=== PATIENT | male | born 1965 | race Caucasian/White ===

== ENCOUNTER 2017-03-20 17:34 | Emergency (ER) | payer BC ==
--- NOTE | 2017-03-20 17:53 | EDM.PDOC ---
ED HPI GENERAL MEDICAL PROBLEM - General Chief Complaint: ENT Problem Stated Complaint: TOOTH PAIN Time Seen by Provider: 03/20/17 17:52 Source of Information: Reports: Patient - History of Present Illness INITIAL COMMENTS - FREE TEXT/NARRATIVE: HISTORY AND PHYSICAL: History of present illness: [] Patient has history of poor dentition He presents with dental pain and tooth fracture appears to be tooth #6 is fractured or pervert exposure No fever nausea vomiting chills sweats Review of systems: As per history of present illness and below otherwise all systems reviewed and negative. Past medical history: As per history of present illness and as reviewed below otherwise noncontributory. Surgical history: As per history of present illness and as reviewed below otherwise noncontributory. Social history: No reported history of drug or alcohol abuse. Family history: As per history of present illness and as reviewed below otherwise noncontributory. Physical exam: HEENT: Atraumatic, normocephalic, pupils reactive, negative for conjunctival pallor or scleral icterus, mucous membranes moist, throat clear, neck supple, nontender, trachea midline. Her dentition noted Lungs: Clear to auscultation, breath sounds equal bilaterally, chest nontender. Heart: S1S2, regular, negative for clicks, rubs, or JVD. Abdomen: Soft, nondistended, nontender. Negative for masses or hepatosplenomegaly. Negative for costovertebral tenderness. Pelvis: Stable nontender. Genitourinary: Deferred. Rectal: Deferred. Extremities: Atraumatic, negative for cords or calf pain. Neurovascular unremarkable. Neuro: Awake, alert, oriented. Cranial nerves II through XII unremarkable. Cerebellum unremarkable. Motor and sensory unremarkable throughout. Exam nonfocal. Diagnostics: [] Therapeutics: [] Clindamycin [place] Followup with dentist tomorrow as scheduled Impression: [] Dental pain/tooth fracture #6 Definitive disposition and diagnosis as appropriate pending reevaluation and review of above. - Related Data Allergies Allergy/AdvReac Type Severity Reaction Status Date / Time Penicillins Allergy Cannot Verified 03/20/17 17:53 Remember Home Meds: Home Meds . [No Known Home Meds] 11/12/14 [History] Social & Family History - Tobacco Use Smoking Status *Q: Never Smoker Second Hand Smoke Exposure: No - Alcohol Use Days Per Week of Alcohol Use: 1 Number of Drinks Per Day: 2 Total Drinks Per Week: 2 - Recreational Drug Use Recreational Drug Use: No ED ROS GENERAL - Review of Systems Review Of Systems: ROS reveals no pertinent complaints other than HPI. ED EXAM, GENERAL - Physical Exam Exam: See Below Departure - Departure Time of Disposition: 17:53 Disposition: Home, Self-Care 01 Condition: good Clinical Impression: Pain, dental - Discharge Information Forms: ED Department Discharge Additional Instructions: Medication as prescribed Return if symptoms persist or worsen Followup with dentist as scheduled tomorrow morning The following information is given to patients seen in the emergency department who are being discharged to home. This information is to outline your options for follow-up care. We provide all patients seen in our emergency department with a follow-up referral. The need for follow-up, as well as the timing and circumstances, are variable depending upon the specifics of your emergency department visit. If you don't have a primary care physician on staff, we will provide you with a referral. We always advise you to contact your personal physician following an emergency department visit to inform them of the circumstance of the visit and for follow-up with them and/or the need for any referrals to a consulting specialist. The emergency department will also refer you to a specialist when appropriate. This referral assures that you have the opportunity for follow-up care with a specialist. All of these measure are taken in an effort to provide you with optimal care, which includes your follow-up. Under all circumstances we always encourage you to contact your private physician who remains a resource for coordinating your care. When calling for follow-up care, please make the office aware that this follow-up is from your recent emergency room visit. If for any reason you are refused follow-up, please contact the [facility] emergency department at and asked to speak to the emergency department charge nurse.
[2017-03-20 19:21] VITALS: BP 121/60
== END 2017-03-20 18:10 | disposition home or self-care (01) ==
LOC: MW.ED 17:34
DX: K08.89 Other specified disorders of teeth and supporting structures (principal); Z88.0 Allergy status to penicillin
CPT/HCPCS: 99282; 99283

== ENCOUNTER 2019-12-27 21:22 | Emergency (ER) | payer BC ==
--- NOTE | 2019-12-27 21:41 | EDM.PDOC ---
<Scott Day - Last Filed: 12/27/19 22:02> ED HPI GENERAL MEDICAL PROBLEM - General Chief Complaint: Respiratory Problem Stated Complaint: CONGESTION Time Seen by Provider: 12/27/19 21:40 Source of Information: Reports: Patient History Limitations: Reports: No Limitations - History of Present Illness INITIAL COMMENTS - FREE TEXT/NARRATIVE: HISTORY AND PHYSICAL: History of present illness: Patient is a 54-year-old male presents to the ED with complaint of cough. Patient states he has had a cough and chest congestion since yesterday. He states he has been taking mucinex without relief of symptoms. Patient has a history of CHF on lasix and states he has had more shortness of breath in the past couple of weeks and is worse when lying flat. He has not noticed significant increased swelling in his legs. He denies fevers or chills, nausea, vomiting, abdominal pain, diarrhea, body aches. He does report pain in his chest with coughing. Review of systems: As per history of present illness and below otherwise all systems reviewed and negative. Past medical history: As per history of present illness and as reviewed below otherwise noncontributory. Surgical history: As per history of present illness and as reviewed below otherwise noncontributory. Social history: No reported history of drug or alcohol abuse. Family history: As per history of present illness and as reviewed below otherwise noncontributory. Physical exam: General: Patient sitting comfortably in no acute distress and nontoxic appearing HEENT: Atraumatic, normocephalic, pupils reactive, negative for conjunctival pallor or scleral icterus, mucous membranes moist, throat clear, neck supple, nontender, trachea midline. No meningeal signs. Lungs: crackles noted at lung bases , chest nontender. Heart: S1S2, regular, negative for clicks, rubs, or overt murmur. Abdomen: Soft, nondistended, nontender. Negative for masses or hepatosplenomegaly. Negative for costovertebral tenderness. No rigidity, rebound , guarding. Pelvis: Stable nontender. Genitourinary: Deferred. Rectal: Deferred. Extremities: 2+ pitting edema right lower extremity, 1+ pitting edema left lower extremity. Atraumatic, negative for cords or calf pain. Neurovascular unremarkable. Neuro: Awake, alert, oriented. Cranial nerves II through XII unremarkable. Cerebellum unremarkable. Motor and sensory unremarkable throughout. Exam nonfocal. Notes: Diagnostics: Influenza, CXR Therapeutics: Prescriptions: Impression: [] Plan: Signed out to Dr. Corrigan at 2200 Definitive disposition and diagnosis as appropriate pending reevaluation and review of above. chest discomfort Pain Score (Numeric/FACES): 6 - Related Data Allergies Allergy/AdvReac Type Severity Reaction Status Date / Time Penicillins Allergy Cannot Verified 03/20/17 17:53 Remember Home Meds: Home Meds Aspirin 81 mg PO DAILY 03/20/17 [History] Furosemide 40 mg PO DAILY 03/20/17 [History] Lisinopril 10 mg PO DAILY 03/20/17 [History] Spironolactone [Aldactone] 25 mg PO DAILY 03/20/17 [History] atorvaSTATin [Lipitor] 20 mg PO BEDTIME 03/20/17 [History] Past Medical History HEENT History: Reports: Impaired Vision Other HEENT History: wears glasses Cardiovascular History: Reports: CAD, High Cholesterol, Hypertension, Other ( See Below) Other Cardiovascular History: rheumatoid fever Respiratory History: Reports: Other (See Below) Other Respiratory History: strep throat - Past Surgical History GI Surgical History: Reports: Hernia, Inguinal Social & Family History - Family History Family Medical History: Noncontributory - Caffeine Use Caffeine Use: Reports: Tea Caffeine Use Comment: 1 cup daily ED ROS GENERAL - Review of Systems Review Of Systems: Comprehensive ROS is negative, except as noted in HPI. ED EXAM, GENERAL - Physical Exam Exam: See Below (see dictation) Course - Vital Signs Last Recorded V/S: Last Vital Signs Temp 36.6 C 12/27/19 21:35 Pulse 92 12/27/19 21:35 Resp 18 12/27/19 21:35 BP 115/59 L 12/27/19 21:35 Pulse Ox 93 L 12/27/19 21:35 - Orders/Labs/Meds Orders: Active Orders 24 hr Category Date Time Status EKG 12 Lead [EKG Documentation Completion] [RC] STAT Care 12/27/19 21:49 Active Chest 2V [CR] Stat Exams 12/27/19 21:44 Taken Departure - Departure Disposition: Home, Self-Care 01 Clinical Impression: Viral syndrome - Discharge Information Instructions: Viral Illness, Adult Referrals: Yimi Rodriguez MD [Primary Care Provider] - Forms: ED Department Discharge Additional Instructions: Increasing fluid intake is important and viral syndromes but do this at your doctor's input because of your congestive heart failure history. Sepsis Event Note - Evaluation Sepsis Screening Result: No Definite Risk - Focused Exam Vital Signs: Vital Signs Temp Pulse Resp BP Pulse Ox 12/27/19 21:35 36.6 C 92 18 115/59 L 93 L Date Exam was Performed: 12/27/19 Time Exam was Performed: 22:02 <Hardy Corrigan - Last Filed: 12/27/19 22:19> Course - Vital Signs Text/Narrative:: The patient's care was handed off to me. History and exam are consistent with a viral syndrome. Patient does have obesity and a history of congestive heart failure but he has not tachypneic, his lungs are clear, he is not wheezing, I do not appreciate any rales or rhonchi. The patient has no pitting edema in the lower extremities , there is chronically obese but I do not see any acute changes. The patient also himself does not state that his legs of and swelling. The ECG was reviewed and interpreted by me -there are P waves before every regular QRS with a ventricular rate of 92 bpm. The CO, QRS and QT intervals do not show any acute changes, ST segments are baseline and there are nonspecific T wave changes. Final interpretation is a normal sinus rhythm with nonspecific T wave changes. Chest x-ray is reviewed and interpreted by me -are no pulmonary infiltrates, pleural effusions, pneumothorax, thoracic masses or any acute pathology. Thus, given the entire clinical scenario I feel that the patient is stable for discharge and close outpatient follow-up. I talked with him in detail that normally you have to drink extra fluids when you have viral syndromes but he had does have to be careful because of his CHF. He will probably need to increase his fluid intake a little bit but he should do this in conjunction with his doctor who will then determine if he needs to increase his Lasix or not. Table for discharge. Departure - Departure Time of Disposition: 22:18 Condition: Good Sepsis Event Note - Focused Exam Date Exam was Performed: 12/27/19 Time Exam was Performed: 22:15
--- NOTE | 2019-12-27 22:29 | CR ---
INDICATION: Cough, chest pain TECHNIQUE: Chest radiograph 2 views COMPARISON: 12/28/17 FINDINGS: Moderate degradation of image quality noted due to body habitus. Mediastinum: The mediastinum is normal in appearance. The heart silhouette is normal in size and morphology. A new transdermal pacer is noted over the sternum with pulse generator over the left chest wall. Lung: Both lungs are unremarkable in appearance. No sign of pleural effusion seen. No pneumothorax is identified. Bone and Soft tissue: Unremarkable for age. IMPRESSION: 1. No acute cardiopulmonary disease is seen. Dictated by: Venkatesh Wray MD @ 12/27/2019 22:27:30 (Electronically Signed)
[2019-12-27 22:48] VITALS: BP 106/68; PULSE 87
== END 2019-12-27 22:30 | disposition home or self-care (01) ==
LOC: MW.ED 21:22
DX: B34.9 Viral infection, unspecified (principal); I25.10 Atherosclerotic heart disease of native coronary artery without angina pectoris; E78.00 Pure hypercholesterolemia, unspecified; I10 Essential (primary) hypertension; Z79.899 Other long term (current) drug therapy; Z79.82 Long term (current) use of aspirin; Z88.0 Allergy status to penicillin
CPT/HCPCS: 71046; 71046-26; 87804; 93005; 99282; 99284-25

== ENCOUNTER 2019-12-31 15:02 | Emergency (ER) | payer BC ==
--- NOTE | 2019-12-31 15:40 | EDM.PDOC ---
ED HPI GENERAL MEDICAL PROBLEM - General Chief Complaint: General Stated Complaint: FEELING SICK Time Seen by Provider: 12/31/19 15:21 Source of Information: Reports: Patient History Limitations: Reports: No Limitations - History of Present Illness INITIAL COMMENTS - FREE TEXT/NARRATIVE: This is a 54-year-old gentleman who presents the emergency room after staying for physicians in 3 days with flulike symptoms. States he is on azithromycin at this time and still does not feel good. Patient states he has shortness of breath. Onset: Today Duration: Day(s):, Resolved Prior to Arrival Location: Reports: Chest Severity: Mild Associated Symptoms: Reports: No Other Symptoms, Chest Pain, Cough Left Chest Pain Score (Numeric/FACES): 6 - Related Data Allergies Allergy/AdvReac Type Severity Reaction Status Date / Time Penicillins Allergy Cannot Verified 12/31/19 15:16 Remember Home Meds: Home Meds Aspirin 81 mg PO DAILY 03/20/17 [History] Furosemide 40 mg PO DAILY 03/20/17 [History] Lisinopril 10 mg PO DAILY 03/20/17 [History] Spironolactone [Aldactone] 25 mg PO DAILY 03/20/17 [History] atorvaSTATin [Lipitor] 20 mg PO BEDTIME 03/20/17 [History] Past Medical History HEENT History: Reports: Impaired Vision Other HEENT History: wears glasses Cardiovascular History: Reports: CAD, High Cholesterol, Hypertension, Other ( See Below) Other Cardiovascular History: rheumatoid fever Respiratory History: Reports: Other (See Below) Other Respiratory History: strep throat Gastrointestinal History: Reports: None Genitourinary History: Reports: None Musculoskeletal History: Reports: None Neurological History: Reports: None Psychiatric History: Reports: None Endocrine/Metabolic History: Reports: None 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 Pump 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 Embosser 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: N/A Hematologic History: Reports: None Immunologic History: Reports: None Oncologic (Cancer) History: Reports: None Dermatologic History: Reports: None - Infectious Disease History Infectious Disease History: Reports: Mumps - Past Surgical History Head Surgeries/Procedures: Reports: None GI Surgical History: Reports: Hernia, Inguinal Social & Family History - Family History Family Medical History: Noncontributory - Tobacco Use Smoking Status *Q: Never Smoker Second Hand Smoke Exposure: No - Caffeine Use Caffeine Use: Reports: None Caffeine Use Comment: 1 cup daily - Recreational Drug Use Recreational Drug Use: No ED ROS GENERAL - Review of Systems Review Of Systems: See Below Constitutional: Reports: No Symptoms, Fever, Chills HEENT: Reports: No Symptoms, Contact Lenses, Dental Pain Respiratory: Reports: No Symptoms, Shortness of Breath, Wheezing Cardiovascular: Reports: No Symptoms Endocrine: Reports: No Symptoms GI/Abdominal: Reports: No Symptoms : Reports: No Symptoms Musculoskeletal: Reports: No Symptoms Skin: Reports: No Symptoms Neurological: Reports: No Symptoms Psychiatric: Reports: No Symptoms ED EXAM, GENERAL - Physical Exam Exam: See Below Free Text/Narrative:: The patient chest x-ray is normal all labs are normal patient will be discharged home with diagnosis of viral disease. Exam Limited By: No Limitations General Appearance: Alert, WD/WN, No Apparent Distress Eye Exam: Bilateral Eye: Normal Fundi, Normal Inspection Ears: Normal External Exam, Normal Canal, Hearing Grossly Normal, Normal TMs, Hearing Loss Ear Exam: Bilateral Ear: Auricle Normal, Canal Normal, TM normal Nose: Normal Inspection, Normal Mucosa Throat/Mouth: Normal Inspection, Normal Lips, Normal Teeth, Normal Oropharynx, Normal Voice Head: Atraumatic, Normocephalic Neck: Normal Inspection, Supple, Non-Tender Respiratory/Chest: No Respiratory Distress, Lungs Clear, No Accessory Muscle Use , Chest Non-Tender Cardiovascular: Normal Peripheral Pulses, Regular Rate, Rhythm, No JVD, No Murmur GI/Abdominal: Normal Bowel Sounds, Soft, Non-Tender, No Distention, No Abnormal Bruit (Male) Exam: Deferred Rectal (Males) Exam: Deferred Back Exam: Normal Inspection, Full Range of Motion Extremities: Normal Inspection, Normal Range of Motion, Normal Capillary Refill , Slow Capillary Refill Neurological: Alert, Oriented, CN II-XII Intact, Normal Cognition, No Motor/ Sensory Deficits Psychiatric: Normal Affect, Normal Mood Skin Exam: Warm Course - Vital Signs Last Recorded V/S: Last Vital Signs Temp 97.4 F 12/31/19 15:12 Pulse 84 12/31/19 15:12 Resp 20 12/31/19 15:12 BP 112/61 12/31/19 15:12 Pulse Ox 93 L 12/31/19 15:12 - Orders/Labs/Meds Labs: Laboratory Tests 12/31/19 12/31/19 Range/Units 15:59 15:59 WBC 6.50 (4.0-11.0) K/uL RBC 4.62 (4.50-5.90) M/uL Hgb 14.3 (13.0-17.0) g/dL Hct 43.7 (38.0-50.0) % MCV 94.6 (80.0-98.0) fL MCH 31.0 (27.0-32.0) pg MCHC 32.7 (31.0-37.0) g/dL RDW Std Deviation 45.3 (28.0-62.0) fl RDW Coeff of Lynne 13 (11.0-15.0) % Plt Count 190 (150-400) K/uL MPV 9.50 (7.40-12.00) fL Nucleated RBC % 0.0 /100WBC Nucleated RBCs # 0 K/uL Sodium 136 (136-148) mmol/L Potassium 3.9 (3.5-5.1) mmol/L Chloride 98 (98-107) mmol/L Carbon Dioxide 27.6 (21.0-32.0) mmol/L BUN 13 (7.0-18.0) mg/dL Creatinine 0.9 (0.8-1.3) mg/dL Est Cr Clr Drug Dosing 82.70 mL/min Estimated GFR (MDRD) > 60.0 ml/min Glucose 99 (74-106) mg/dL Calcium 9.1 (8.5-10.1) mg/dL Total Bilirubin 1.1 H (0.2-1.0) mg/dL AST 45 H (15-37) IU/L ALT 66 H (14-63) IU/L Alkaline Phosphatase 65 (46-116) U/L Total Protein 7.7 (6.4-8.2) g/dL Albumin 4.0 (3.4-5.0) g/dL Globulin 3.7 (2.6-4.0) g/dL Albumin/Globulin Ratio 1.1 (0.9-1.6) Departure - Departure Time of Disposition: 17:19 Disposition: Home, Self-Care 01 Condition: Good Clinical Impression: Viral syndrome - Discharge Information Instructions: Viral Respiratory Infection, [id number], Hand Washing Referrals: Yimi Rodriguez MD [Primary Care Provider] - Forms: ED Department Discharge Sepsis Event Note - Evaluation Sepsis Screening Result: No Definite Risk - Focused Exam Vital Signs: Vital Signs Temp Pulse Resp BP Pulse Ox 12/31/19 15:12 97.4 F 84 20 112/61 93 L Date Exam was Performed: 12/31/19 Time Exam was Performed: 17:16
[2019-12-31 16:25] LABS: BLOOD UREA NITROGEN,BUN 13 mg/dL (7.0-18.0); CARBON DIOXIDE,CO2 27.6 mmol/L (21.0-32.0); CHLORIDE,CL 98 mmol/L (98-107); GLUCOSE RANDOM 99 mg/dL (74-106); POTASSIUM,K 3.9 mmol/L (3.5-5.1); SODIUM,NA 136 mmol/L (136-148)
--- NOTE | 2019-12-31 16:52 | CR ---
Chest: PA view of the chest was obtained. Comparison: Prior chest x-ray of 12/27/19. Parenchymal density is noted above the left hemidiaphragm having the appearance of a thick area of atelectasis. Lung markings are mildly increased which appear stable. Heart size at the upper limits of normal. Electrode wires are seen overlying the mediastinum which is stable. Bony structures are grossly intact. Impression: 1. Thick area of atelectasis within the left lung base. 2. Other findings which are stable. Nothing acute is otherwise seen. Diagnostic code #2 This report was dictated in MDT
[2019-12-31 17:30] VITALS: BP 98/73; PULSE 85
== END 2019-12-31 17:28 | disposition home or self-care (01) ==
LOC: MW.ED 15:02
DX: B34.9 Viral infection, unspecified (principal); I25.10 Atherosclerotic heart disease of native coronary artery without angina pectoris; E78.00 Pure hypercholesterolemia, unspecified; I10 Essential (primary) hypertension; Z88.0 Allergy status to penicillin; Z79.82 Long term (current) use of aspirin; Z79.899 Other long term (current) drug therapy
CPT/HCPCS: 36415; 71045; 71045-26; 80053; 85027; 99282; 99285-25

== ENCOUNTER 2020-01-02 20:16 | Inpatient (IN) | payer BC ==
[2020-01-02] MEDS ORDERED: Albuterol/Ipratropium 3.0-0.5 MG/3 ML Neb Soln NEB ONE (20:20)
[2020-01-02] MEDS ORDERED: Albuterol/Ipratropium 3.0-0.5 MG/3 ML Neb Soln ONE (20:21)
[2020-01-02] MEDS ORDERED: Sodium Chloride 0.9% 2.5 ML Syringe FLUSH PRN (20:46)
[2020-01-02] MEDS ORDERED: Sodium Chloride 0.9% 10 ML Syringe FLUSH PRN (20:46)
[2020-01-02 21:35] LABS: BLOOD UREA NITROGEN,BUN 15 mg/dL (7.0-18.0); CARBON DIOXIDE,CO2 31.5 mmol/L (21.0-32.0); CHLORIDE,CL 99 mmol/L (98-107); GLUCOSE RANDOM 111 mg/dL (74-106); SODIUM,NA 139 mmol/L (136-148)
[2020-01-02] MEDS ORDERED: cefTRIAXone 2 GM in Premix Bag 1 BAG IV ONE (22:28)
--- NOTE | 2020-01-02 22:58 | EDM.PDOC ---
ED HPI GENERAL MEDICAL PROBLEM - General Chief Complaint: Respiratory Problem Stated Complaint: breathing problem Time Seen by Provider: 01/02/20 20:36 Source of Information: Reports: Patient History Limitations: Reports: No Limitations - History of Present Illness INITIAL COMMENTS - FREE TEXT/NARRATIVE: 54-year-old male presents with shortness of breath for about 1 week. Patient reports increasing shortness for breath for about 1 week. He has a cough associated with this. He endorses some subjective fevers at home. He has been seen here 3 times now in the last week and a half for similar symptoms. He was like his symptoms are getting worse. Patient reports a history of heart failure with last echo in 2018. He reports that his heart function is getting better. He does endorse taking diuretics. Patient denies any sick contacts but does endorse increasing wheezing and coughing and shortness of breath. He feels like is because of the amiodarone that he is taking for his heart. 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 He denies any chest pain arm pain or jaw pain. Denies history of coronary artery disease. No recent falls. No changes in bowel or bladder function. No new swollen joints. No weakness or numbness. No headaches or confusion or vision changes. - Related Data Allergies Allergy/AdvReac Type Severity Reaction Status Date / Time Penicillins Allergy Cannot Verified 01/03/20 02:17 Remember Home Meds: Home Meds Aspirin 81 mg PO DAILY 03/20/17 [History] Furosemide 40 mg PO DAILY 03/20/17 [History] Lisinopril 10 mg PO DAILY 03/20/17 [History] Spironolactone [Aldactone] 25 mg PO DAILY 03/20/17 [History] atorvaSTATin [Lipitor] 20 mg PO BEDTIME 03/20/17 [History] Past Medical History HEENT History: Reports: Impaired Vision Other HEENT History: wears glasses Cardiovascular History: Reports: CAD, High Cholesterol, Hypertension, Other ( See Below) Other Cardiovascular History: rheumatoid fever Respiratory History: Reports: Asthma, Other (See Below) Other Respiratory History: strep throat Gastrointestinal History: Reports: None Genitourinary History: Reports: None Musculoskeletal History: Reports: None Neurological History: Reports: None Psychiatric History: Reports: None Endocrine/Metabolic History: Reports: None Insulin Pump Model and Business Solutions 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: N/A Hematologic History: Reports: None Immunologic History: Reports: None Oncologic (Cancer) History: Reports: None Dermatologic History: Reports: None - Infectious Disease History Infectious Disease History: Reports: Chicken Pox, Rheumatic Fever - Past Surgical History Head Surgeries/Procedures: Reports: None GI Surgical History: Reports: Hernia, Inguinal Social & Family History - Family History Family Medical History: Noncontributory - Tobacco Use Smoking Status *Q: Never Smoker - Caffeine Use Caffeine Use: Reports: None Caffeine Use Comment: 1 cup daily - Recreational Drug Use Recreational Drug Use: No ED ROS GENERAL - Review of Systems Review Of Systems: Comprehensive ROS is negative, except as noted in HPI. ED EXAM, GENERAL - Physical Exam Exam: See Below Free Text/Narrative:: General: Some mild distress. Tachypneic. Heent: Examination revealed no pallor, no icterus, no lymphadenopathy. The patient has normal posterior pharynx, moist mucous membranes. Neck: Supple. No JVD. No rigidity. Heart: Normal rate. Reg rhythm. No murmurs appreciated. Lungs: Coarse. No focal findings. Abdomen: Obese. Nontender, non-distended, soft, no CVA tenderness. Neuro: Pt is moving all four extremities. EOMI. PERRL. Normal speech. Skin: Exposed areas appeared normally perfused, warm, normal color with no meaningful rashes or lesions. Extremities: Peripheral examination revealed moderate pedal edema. EKG INTERPRETATION EKG Interpretation Comments: EKG no longer available for recording however was normal sinus rhythm at a normal rate. There were T wave inversions in lead III otherwise no significant suggestion of cardiac ischemia. Course - Vital Signs Text/Narrative:: Patient with true hypoxia at this point. Unclear etiology. BNP normal and although there was some pedal edema, there is no hepatojugular reflex and the patient does not demonstrate JVD or rales. Patient actually reported having had a recent prescription of azithromycin. This was treated however he did not mention that he never took the azithromycin. He is on a steroid burst for his breathing that his primary care physician gave him. Mild distress arrival much better after oxygen. He is on 5 or 6 L and feels much better with reasonable saturations. No clear evidence of PE. No right heart strain on EKG. No significant risk factors. However it may be waffled inpatient team to consider CTA looking for clot. This may also better diagnose problems with the parenchyma. There was a very mild troponin bump which is 0.03 above normal. However has had no chest pain no arm pain or jaw pain. EKG note with no obvious ischemia. His symptoms also been present for about a week and gradually getting worse. This is not consistent with acute coronary syndrome. Last Recorded V/S: Last Vital Signs Temp 96.7 F L 01/03/20 00:26 Pulse 81 01/03/20 00:29 Resp 22 H 01/03/20 00:29 BP 117/54 L 01/03/20 00:29 Pulse Ox 97 01/03/20 00:29 - Orders/Labs/Meds Orders: Active Orders 24 hr Category Date Time Status EKG Documentation Completion [RC] STAT Care 01/02/20 22:25 Active CULTURE BLOOD [BC] Stat Lab 01/02/20 22:40 Received CULTURE BLOOD [BC] Stat Lab 01/02/20 22:57 Received Sodium Chloride 0.9% [Saline Flush] Med 01/02/20 20:46 Active 10 ml FLUSH ASDIRECTED PRN Sodium Chloride 0.9% [Saline Flush] Med 01/02/20 20:46 Active 2.5 ml FLUSH ASDIRECTED PRN Blood Culture x2 Reflex Set [OM.PC] Stat Oth 01/02/20 22:16 Ordered Saline Lock Insert [OM.PC] Stat Ot 01/02/20 20:46 Ordered Medication Orders Albuterol/Ipratropium (Duoneb 3.0-0.5 Mg/3 Ml) 3 ml NEB Q6HRRT [facility] Last Admin: 01/03/20 01:28 Dose: 3 ml Atorvastatin Calcium (Lipitor) 20 mg PO BEDTIME [facility] Heparin Sodium (Porcine) (Heparin Sodium) 5,000 units SUBCUT Q8H [facility] Last Admin: 01/03/20 01:28 Dose: 5,000 units Levofloxacin/Dextrose 750 mg/ (Premix) 150 mls @ 100 mls/hr IV Q24H [facility] Last Admin: 01/03/20 01:29 Dose: 100 mls/hr Lisinopril (Prinivil) 10 mg PO DAILY [facility] Methylprednisolone Sodium Succinate (Solu-Medrol) 125 mg IVPUSH DAILY [facility] Last Admin: 01/03/20 01:29 Dose: 125 mg Sodium Chloride (Saline Flush) 10 ml FLUSH ASDIRECTED PRN PRN Reason: Keep Vein Open Last Admin: 01/02/20 21:10 Dose: 10 ml Sodium Chloride (Saline Flush) 2.5 ml FLUSH ASDIRECTED PRN PRN Reason: Keep Vein Open Last Admin: 01/02/20 21:10 Dose: 2.5 ml Spironolactone (Aldactone) 25 mg PO DAILY ER[facility] Labs: Laboratory Tests 01/02/20 01/02/20 01/02/20 Range/Units 00:01 21:10 21:14 WBC 11.20 H (4.0-11.0) K/uL RBC 4.66 (4.50-5.90) M/uL Hgb 14.4 (13.0-17.0) g/dL Hct 44.1 (38.0-50.0) % MCV 94.6 (80.0-98.0) fL MCH 30.9 (27.0-32.0) pg MCHC 32.7 (31.0-37.0) g/dL RDW Std Deviation 44.9 (28.0-62.0) fl RDW Coeff of Lynne 13 (11.0-15.0) % Plt Count 227 (150-400) K/uL MPV 9.40 (7.40-12.00) fL Neut % (Auto) 88.3 H (48.0-80.0) % Lymph % (Auto) 6.9 L (16.0-40.0) % Cocke % (Auto) 4.6 (0.0-15.0) % Eos % (Auto) 0.1 (0.0-7.0) % Baso % (Auto) 0.1 (0.0-1.5) % Neut # (Auto) 9.9 H (1.4-5.7) K/uL Lymph # (Auto) 0.8 (0.6-2.4) K/uL Cocke # (Auto) 0.5 (0.0-0.8) K/uL Eos # (Auto) 0.0 (0.0-0.7) K/uL Baso # (Auto) 0.0 (0.0-0.1) K/uL Nucleated RBC % 0.0 /100WBC Nucleated RBCs # 0 K/uL D-Dimer, Quantitative < 0.19 (0.0-0.50) mg/L FEU Sodium (136-148) mmol/L Potassium (3.5-5.1) mmol/L Chloride (98-107) mmol/L Carbon Dioxide (21.0-32.0) mmol/L BUN (7.0-18.0) mg/dL Creatinine (0.8-1.3) mg/dL Est Cr Clr Drug Dosing mL/min Estimated GFR (MDRD) ml/min Glucose (74-106) mg/dL Calcium (8.5-10.1) mg/dL Magnesium 2.3 (1.8-2.4) mg/dL Total Bilirubin (0.2-1.0) mg/dL AST (15-37) IU/L ALT (14-63) IU/L Alkaline Phosphatase (46-116) U/L Troponin I (0.000-0.056) ng/mL B-Natriuretic Peptide (<100) PG/ML Total Protein (6.4-8.2) g/dL Albumin (3.4-5.0) g/dL Globulin (2.6-4.0) g/dL Albumin/Globulin Ratio (0.9-1.6) 01/02/20 01/02/20 01/02/20 Range/Units 21:14 21:14 21:14 WBC (4.0-11.0) K/uL RBC (4.50-5.90) M/uL Hgb (13.0-17.0) g/dL Hct (38.0-50.0) % MCV (80.0-98.0) fL MCH (27.0-32.0) pg MCHC (31.0-37.0) g/dL RDW Std Deviation (28.0-62.0) fl RDW Coeff of Lynne (11.0-15.0) % Plt Count (150-400) K/uL MPV (7.40-12.00) fL Neut % (Auto) (48.0-80.0) % Lymph % (Auto) (16.0-40.0) % Cocke % (Auto) (0.0-15.0) % Eos % (Auto) (0.0-7.0) % Baso % (Auto) (0.0-1.5) % Neut # (Auto) (1.4-5.7) K/uL Lymph # (Auto) (0.6-2.4) K/uL Cocke # (Auto) (0.0-0.8) K/uL Eos # (Auto) (0.0-0.7) K/uL Baso # (Auto) (0.0-0.1) K/uL Nucleated RBC % /100WBC Nucleated RBCs # K/uL D-Dimer, Quantitative (0.0-0.50) mg/L FEU Sodium 139 (136-148) mmol/L Potassium 4.0 (3.5-5.1) mmol/L Chloride 99 (98-107) mmol/L Carbon Dioxide 31.5 (21.0-32.0) mmol/L BUN 15 (7.0-18.0) mg/dL Creatinine 1.0 (0.8-1.3) mg/dL Est Cr Clr Drug Dosing 74.43 mL/min Estimated GFR (MDRD) > 60.0 ml/min Glucose 111 H (74-106) mg/dL Calcium 9.0 (8.5-10.1) mg/dL Magnesium (1.8-2.4) mg/dL Total Bilirubin 0.6 (0.2-1.0) mg/dL AST 37 (15-37) IU/L ALT 64 H (14-63) IU/L Alkaline Phosphatase 65 (46-116) U/L Troponin I 0.086 H* (0.000-0.056) ng/mL B-Natriuretic Peptide 70 (<100) PG/ML Total Protein 7.9 (6.4-8.2) g/dL Albumin 4.0 (3.4-5.0) g/dL Globulin 3.9 (2.6-4.0) g/dL Albumin/Globulin Ratio 1.0 (0.9-1.6) Meds: Medications Generic Name Dose Route Start Last Admin Trade Name Freq PRN Reason Stop Dose Admin Albuterol/Ipratropium 3 ml 01/03/20 00:00 01/03/20 01:28 Duoneb 3.0-0.5 Mg/3 Ml NEB 3 ml Q6HRRT ERIC Administration Atorvastatin Calcium 20 mg 01/03/20 21:00 Lipitor PO BEDTIME [facility] Heparin Sodium (Porcine) 5,000 units 01/02/20 23:45 01/03/20 01:28 Heparin Sodium SUBCUT 5,000 units Q8H [facility] Administration Levofloxacin/Dextrose 750 mg/ 150 mls @ 100 mls/hr 01/02/20 23:45 01/03/20 01 :29 Premix IV 100 mls/hr Q24H [facility] Administration Lisinopril 10 mg 01/03/20 09:00 Prinivil PO DAILY [facility] Methylprednisolone Sodium Succinate 125 mg 01/02/20 23:45 01/03/20 01:29 Solu-Medrol IVPUSH 125 mg DAILY ER[facility] Administration Sodium Chloride 10 ml 01/02/20 20:46 01/02/20 21:10 Saline Flush FLUSH 10 ml ASDIRECTED PRN Administration Keep Vein Open Sodium Chloride 2.5 ml 01/02/20 20:46 01/02/20 21:10 Saline Flush FLUSH 2.5 ml ASDIRECTED PRN Administration Keep Vein Open Spironolactone 25 mg 01/03/20 09:00 Aldactone PO DAILY [facility] Discontinued Medications Generic Name Dose Route Start Last Admin Trade Name Freq PRN Reason Stop Dose Admin Albuterol/Ipratropium Confirm 01/02/20 20:21 01/02/20 21:10 Duoneb 3.0-0.5 Mg/3 Ml Administered 01/02/20 20:22 Not Given Dose 3 ml .ROUTE .STK-MED ONE Albuterol/Ipratropium 3 ml 01/02/20 20:20 01/02/20 20:22 Duoneb 3.0-0.5 Mg/3 Ml NEB 01/02/20 20:21 3 ml ONETIME ONE Administration Furosemide 40 mg 01/02/20 23:51 01/03/20 02:01 Lasix IVPUSH 01/02/20 23:52 Not Given NOW ONE Furosemide 40 mg 01/03/20 02:00 01/03/20 02:00 Lasix IVPUSH 01/03/20 02:01 40 mg NOW ONE Administration Ceftriaxone Sodium/Dextrose 2 50 mls @ 100 mls/hr 01/02/20 22:28 01/02/20 22: 46 gm/ Premix IV 01/02/20 22:57 100 mls/hr ONETIME ONE Administration Departure - Departure Time of Disposition: 23:30 Disposition: DC/Tfer to Medicaid [facility] Clinical Impression: Hypoxia - Discharge Information Sepsis Event Note - Evaluation Sepsis Screening Result: Possible Sepsis Risk - Focused Exam Vital Signs: Vital Signs Temp Pulse Resp BP Pulse Ox 01/02/20 22:48 79 22 H 94 L 01/02/20 22:31 96.9 F 79 19 109/65 97 01/02/20 20:22 98.1 F 92 24 H 125/58 L 87 L Date Exam was Performed: 01/03/20 Time Exam was Performed: 05:53 - My Orders Last 24 Hours: My Active Orders 01/02/20 20:46 Sodium Chloride 0.9% [Saline Flush] 10 ml FLUSH ASDIRECTED PRN Sodium Chloride 0.9% [Saline Flush] 2.5 ml FLUSH ASDIRECTED PRN Saline Lock Insert [OM.PC] Stat 01/02/20 22:16 Blood Culture x2 Reflex Set [OM.PC] Stat 01/02/20 22:25 EKG Documentation Completion [RC] STAT 01/02/20 22:40 CULTURE BLOOD [BC] Stat 01/02/20 22:57 CULTURE BLOOD [BC] Stat - Assessment/Plan Last 24 Hours: My Active Orders 01/02/20 20:46 Sodium Chloride 0.9% [Saline Flush] 10 ml FLUSH ASDIRECTED PRN Sodium Chloride 0.9% [Saline Flush] 2.5 ml FLUSH ASDIRECTED PRN Saline Lock Insert [OM.PC] Stat 01/02/20 22:16 Blood Culture x2 Reflex Set [OM.PC] Stat 01/02/20 22:25 EKG Documentation Completion [RC] STAT 01/02/20 22:40 CULTURE BLOOD [BC] Stat 01/02/20 22:57 CULTURE BLOOD [BC] Stat
--- NOTE | 2020-01-02 23:03 | CR ---
INDICATION: Cough, shortness of breath TECHNIQUE: Chest 2 views. COMPARISON: 12/27/2019 FINDINGS: Cardiovascular and mediastinum: Heart size and vasculature are normal in caliber and appearance. Mediastinum is within normal limits. Stable positioning of pacer device. Lungs and pleural spaces: Lungs are clear. No sign of infiltrate or mass. No sign of pleural effusion. No pneumothorax. Bones and soft tissues: No significant findings. IMPRESSION: Unremarkable chest. No evidence for pneumonia. Dictated by Asif Draper MD @ 01/02/2020 11:00:53 PM Dictated by: Asif Draper MD @ 01/02/2020 23:01:03 (Electronically Signed)
--- NOTE | 2020-01-03 00:06 | PCM.HP.2 ---
H&P History of Present Illness - General Date of Service: 01/02/20 Admit Problem/Dx: Admission Diagnosis/Problem Admission Diagnosis/Problem Hypoxemia - History of Present Illness Initial Comments - Free Text/Narative: 54 yo male with pmh of asthma, CHF, s/p pacer/ICD, echo in 2018 reported EF of 30% who for the past week has been having shortness of breath. Patient reports chest congestion, with sputum that is difficult to cough up but when he does it is green. He does report some wheezing. He denies any fevers or chest pain. He has been in the ER and clinic four times this week and has been but on a z- pack and prednisone. Patient reports he recently seen his radio assembler in [place] and his doctor thought he was putting on fluid and wanting to order and echocardiogram. Patient reports a 25 lb weight gain in the past six months. He has some leg edema and orthopnea but thes symptoms are not new. He states his doctors are trying to get him off amiodarone because it is eating up his lungs but they haven't been able to find an alternative drug. In the ED tonight he was noted to be hypoxic requiring six liters of O2 to keep his sats about 90%. He was given a duoneb with improvement in his shortness of breath. - Related Data Allergies/Adverse Reactions: Allergies Allergy/AdvReac Type Severity Reaction Status Date / Time Penicillins Allergy Cannot Verified 01/03/20 02:17 Remember Home Medications: Home Meds Aspirin 81 mg PO DAILY 03/20/17 [History] Furosemide 40 mg PO DAILY 03/20/17 [History] Lisinopril 10 mg PO DAILY 03/20/17 [History] Spironolactone [Aldactone] 25 mg PO DAILY 03/20/17 [History] atorvaSTATin [Lipitor] 20 mg PO BEDTIME 03/20/17 [History] Past Medical History HEENT History: Reports: Impaired Vision Other HEENT History: wears glasses Cardiovascular History: Reports: CAD, High Cholesterol, Hypertension, Other ( See Below) Other Cardiovascular History: rheumatoid fever Respiratory History: Reports: Asthma, Other (See Below) Other Respiratory History: strep throat Gastrointestinal History: Reports: None Genitourinary History: Reports: None Musculoskeletal History: Reports: None Neurological History: Reports: None Psychiatric History: Reports: None Endocrine/Metabolic History: Reports: None Insulin Pump Model 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 Development 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: N/A Hematologic History: Reports: None Immunologic History: Reports: None Oncologic (Cancer) History: Reports: None Dermatologic History: Reports: None - Infectious Disease History Infectious Disease History: Reports: Chicken Pox, Rheumatic Fever - Past Surgical History Head Surgeries/Procedures: Reports: None GI Surgical History: Reports: Hernia, Inguinal Social & Family History - Family History Family Medical History: Noncontributory - Tobacco Use Smoking Status *Q: Never Smoker - Caffeine Use Caffeine Use: Reports: None Caffeine Use Comment: 1 cup daily - Recreational Drug Use Recreational Drug Use: No H&P Review of Systems - Review of Systems: Review Of Systems: Comprehensive ROS is negative, except as noted in HPI. Exam - Exam Exam: See Below - Vital Signs Vital Signs: Last Vital Signs Temp 36.0 C L 01/02/20 23:28 Pulse 75 01/02/20 23:28 Resp 22 H 01/02/20 23:28 BP 109/62 01/02/20 23:28 Pulse Ox 96 01/02/20 23:28 Weight: 119.295 kg - Exam General: Alert, Oriented HEENT: Mucosa Moist & [place] Lungs: Decreased Breath Sounds Cardiovascular: Regular Rate, Regular Rhythm GI/Abdominal Exam: Soft, Non-Tender Extremities: Non-Tender, Pedal Edema (+2 edema) - Patient Data Lab Results Last 24 hrs: Laboratory Results - last 24 hr 01/02/20 01/02/20 01/02/20 Range/Units 21:14 21:14 21:14 WBC 11.20 H (4.0-11.0) K/uL RBC 4.66 (4.50-5.90) M/uL Hgb 14.4 (13.0-17.0) g/dL Hct 44.1 (38.0-50.0) % MCV 94.6 (80.0-98.0) fL MCH 30.9 (27.0-32.0) pg MCHC 32.7 (31.0-37.0) g/dL RDW Std Deviation 44.9 (28.0-62.0) fl RDW Coeff of Lynne 13 (11.0-15.0) % Plt Count 227 (150-400) K/uL MPV 9.40 (7.40-12.00) fL Neut % (Auto) 88.3 H (48.0-80.0) % Lymph % (Auto) 6.9 L (16.0-40.0) % Greer % (Auto) 4.6 (0.0-15.0) % Eos % (Auto) 0.1 (0.0-7.0) % Baso % (Auto) 0.1 (0.0-1.5) % Neut # (Auto) 9.9 H (1.4-5.7) K/uL Lymph # (Auto) 0.8 (0.6-2.4) K/uL Greer # (Auto) 0.5 (0.0-0.8) K/uL Eos # (Auto) 0.0 (0.0-0.7) K/uL Baso # (Auto) 0.0 (0.0-0.1) K/uL Nucleated RBC % 0.0 /100WBC Nucleated RBCs # 0 K/uL Sodium 139 (136-148) mmol/L Potassium 4.0 (3.5-5.1) mmol/L Chloride 99 (98-107) mmol/L Carbon Dioxide 31.5 (21.0-32.0) mmol/L BUN 15 (7.0-18.0) mg/dL Creatinine 1.0 (0.8-1.3) mg/dL Est Cr Clr Drug Dosing 74.43 mL/min Estimated GFR (MDRD) > 60.0 ml/min Glucose 111 H (74-106) mg/dL Calcium 9.0 (8.5-10.1) mg/dL Total Bilirubin 0.6 (0.2-1.0) mg/dL AST 37 (15-37) IU/L ALT 64 H (14-63) IU/L Alkaline Phosphatase 65 (46-116) U/L Troponin I (0.000-0.056) ng/mL B-Natriuretic Peptide 70 (<100) PG/ML Total Protein 7.9 (6.4-8.2) g/dL Albumin 4.0 (3.4-5.0) g/dL Globulin 3.9 (2.6-4.0) g/dL Albumin/Globulin Ratio 1.0 (0.9-1.6) 01/02/20 Range/Units 21:14 WBC (4.0-11.0) K/uL RBC (4.50-5.90) M/uL Hgb (13.0-17.0) g/dL Hct (38.0-50.0) % MCV (80.0-98.0) fL MCH (27.0-32.0) pg MCHC (31.0-37.0) g/dL RDW Std Deviation (28.0-62.0) fl RDW Coeff of Lynne (11.0-15.0) % Plt Count (150-400) K/uL MPV (7.40-12.00) fL Neut % (Auto) (48.0-80.0) % Lymph % (Auto) (16.0-40.0) % Greer % (Auto) (0.0-15.0) % Eos % (Auto) (0.0-7.0) % Baso % (Auto) (0.0-1.5) % Neut # (Auto) (1.4-5.7) K/uL Lymph # (Auto) (0.6-2.4) K/uL Greer # (Auto) (0.0-0.8) K/uL Eos # (Auto) (0.0-0.7) K/uL Baso # (Auto) (0.0-0.1) K/uL Nucleated RBC % /100WBC Nucleated RBCs # K/uL Sodium (136-148) mmol/L Potassium (3.5-5.1) mmol/L Chloride (98-107) mmol/L Carbon Dioxide (21.0-32.0) mmol/L BUN (7.0-18.0) mg/dL Creatinine (0.8-1.3) mg/dL Est Cr Clr Drug Dosing mL/min Estimated GFR (MDRD) ml/min Glucose (74-106) mg/dL Calcium (8.5-10.1) mg/dL Total Bilirubin (0.2-1.0) mg/dL AST (15-37) IU/L ALT (14-63) IU/L Alkaline Phosphatase (46-116) U/L Troponin I 0.086 H* (0.000-0.056) ng/mL B-Natriuretic Peptide (<100) PG/ML Total Protein (6.4-8.2) g/dL Albumin (3.4-5.0) g/dL Globulin (2.6-4.0) g/dL Albumin/Globulin Ratio (0.9-1.6) Result Diagrams: 01/03/20 03:10 01/03/20 03:10 Sepsis Event Note - Evaluation Sepsis Screening Result: Possible Sepsis Risk - Focused Exam Vital Signs: Vital Signs Temp Pulse Resp BP Pulse Ox 01/02/20 23:28 36.0 C L 75 22 H 109/62 96 01/02/20 22:48 79 22 H 94 L 01/02/20 22:31 36.1 C 79 19 109/65 97 01/02/20 20:22 36.7 C 92 24 H 125/58 L 87 L Date Exam was Performed: 01/03/20 Time Exam was Performed: 10:10 Problem List Initiated/Reviewed/Updated: Yes Orders Last 24hrs: Active Orders 24 hr Category Date Time Status Admission Status [Patient Status] [ADT] Stat ADT 01/02/20 23:03 Active Antiembolic Devices [RC] PER UNIT ROUTINE Care 01/02/20 23:56 Ordered Cardiac Monitoring [RC] CONTINUOUS Care 01/02/20 23:56 Ordered EKG Documentation Completion [RC] STAT Care 01/02/20 22:25 Active Intake and Output [RC] QSHIFT Care 01/02/20 23:56 Ordered Oxygen Therapy [RC] PRN Care 01/02/20 23:55 Ordered RT Aerosol Therapy [RC] ASDIRECTED Care 01/02/20 20:21 Active RT Aerosol Therapy [RC] ASDIRECTED Care 01/02/20 23:56 Ordered Up ad Natalia [RC] ASDIRECTED Care 01/02/20 23:55 Ordered VTE/DVT Education [RC] PER UNIT ROUTINE Care 01/02/20 23:55 Ordered Vital Signs [RC] Q4H Care 01/02/20 23:55 Ordered Regular Diet [DIET] Diet 01/02/20 Breakfast Ordered Chest PE [Ang Chest] [CT] Stat Exams 01/02/20 23:54 Ordered BASIC METABOLIC PANEL,BMP [CHEM] AM Lab 01/03/20 05:11 Ordered CBC WITH AUTO DIFF [HEME] AM Lab 01/03/20 05:11 Ordered CULTURE BLOOD [BC] Stat Lab 01/02/20 22:40 Received CULTURE BLOOD [BC] Stat Lab 01/02/20 22:57 Received TROPONIN I [CHEM] Q6H Lab 01/03/20 03:00 Ordered TROPONIN I [CHEM] Q6H Lab 01/03/20 09:00 Ordered Albuterol/Ipratropium [DuoNeb 3.0-0.5 MG/3 ML] Med 01/03/20 00:00 Ordered 3 ml NEB Q6HRRT Heparin Sodium Med 01/02/20 23:45 Ordered 5,000 units SUBCUT Q8H Levofloxacin/Dextrose 5%-Water [Levaquin in D5W 750 MG/ Med 01/02/20 23:45 Ordered 150 ML] 750 mg Premix Bag 1 bag IV Q24H Sodium Chloride 0.9% [Saline Flush] Med 01/02/20 20:46 Active 10 ml FLUSH ASDIRECTED PRN Sodium Chloride 0.9% [Saline Flush] Med 01/02/20 20:46 Active 2.5 ml FLUSH ASDIRECTED PRN Spironolactone [Aldactone] Med 01/03/20 09:00 Active 25 mg PO DAILY atorvaSTATin [Lipitor] Med 01/03/20 21:00 Active 20 mg PO BEDTIME lisinopriL [Prinivil] Med 01/03/20 09:00 Active 10 mg PO DAILY methylPREDNISolone Sod Succ [Solu-MEDROL] Med 01/02/20 23:45 Active 125 mg IVPUSH DAILY Blood Culture x2 Reflex Set [OM.PC] Stat Oth 01/02/20 22:16 Ordered Saline Lock Insert [OM.PC] Stat Oth 01/02/20 20:46 Ordered Sequential Compression Device [OM.PC] Per Unit Routine Oth 01/02/20 23:55 Ordered Resuscitation Status Routine Resus Stat 01/02/20 23:55 Ordered Medication Orders Albuterol/Ipratropium (Duoneb 3.0-0.5 Mg/3 Ml) 3 ml NEB Q6HRRT ERIC Atorvastatin Calcium (Lipitor) 20 mg PO BEDTIME [facility] Heparin Sodium (Porcine) (Heparin Sodium) 5,000 units SUBCUT Q8H [facility] Levofloxacin/Dextrose 750 mg/ (Premix) 150 mls @ 100 mls/hr IV Q24H [facility] Lisinopril (Prinivil) 10 mg PO DAILY [facility] Methylprednisolone Sodium Succinate (Solu-Medrol) 125 mg IVPUSH DAILY ERIC Sodium Chloride (Saline Flush) 10 ml FLUSH ASDIRECTED PRN PRN Reason: Keep Vein Open Last Admin: 01/02/20 21:10 Dose: 10 ml Sodium Chloride (Saline Flush) 2.5 ml FLUSH ASDIRECTED PRN PRN Reason: Keep Vein Open Last Admin: 01/02/20 21:10 Dose: 2.5 ml Spironolactone (Aldactone) 25 mg PO DAILY [facility] Assessment/Plan Comment:: 54 yo male admitted with acute hypoxic respiratory failure likely secondary to asthma exacerbation and possible bronchial pneumonia. We will treat with solumedrol, duonebs and levaquin.
[2020-01-03] MEDS: Heparin Sodium 5,000 Units/ML Vial SUBCUT SCH ×3 (01:28→15:15)
[2020-01-03] MEDS: Albuterol/Ipratropium 3.0-0.5 MG/3 ML Neb Soln NEB SCH ×4 (01:28→17:48)
[2020-01-03] MEDS: Levofloxacin/Dextrose 5%-Water 750 MG in Premix Bag 1 BAG IV SCH (01:29)
[2020-01-03] MEDS: methylPREDNISolone Sodium Succinate 125 MG/2 ML SDV IVPUSH SCH ×2 (01:29→08:12)
[2020-01-03] MEDS: Furosemide 40 MG/4 ML VIAL IVPUSH ONE ×2 (01:56→02:01)
[2020-01-03] MEDS ORDERED: Furosemide 40 MG/4 ML VIAL IVPUSH ONE (02:00)
[2020-01-03 03:48] LABS: BLOOD UREA NITROGEN,BUN 15 mg/dL (7.0-18.0); CARBON DIOXIDE,CO2 26.4 mmol/L (21.0-32.0); CHLORIDE,CL 99 mmol/L (98-107); GLUCOSE RANDOM 114 mg/dL (74-106); POTASSIUM,K 3.7 mmol/L (3.5-5.1); SODIUM,NA 140 mmol/L (136-148)
[2020-01-03] MEDS: Lisinopril 10 MG Tab PO SCH (08:12)
[2020-01-03] MEDS: Spironolactone 25 MG Tab PO SCH (08:12)
--- NOTE | 2020-01-03 10:12 | PCM.PN ---
- General Info Date of Service: 01/03/20 - Patient Data Vitals - Most Recent: Last Vital Signs Temp 36.1 C 01/03/20 07:46 Pulse 74 01/03/20 07:46 Resp 18 01/03/20 07:46 BP 115/64 01/03/20 08:12 Pulse Ox 93 L 01/03/20 07:46 Weight - Most Recent: 119.295 kg Lab Results Last 24 Hours: Laboratory Results - last 24 hr 01/02/20 01/02/20 01/02/20 Range/Units 00:01 21:10 21:14 WBC 11.20 H (4.0-11.0) K/uL RBC 4.66 (4.50-5.90) M/uL Hgb 14.4 (13.0-17.0) g/dL Hct 44.1 (38.0-50.0) % MCV 94.6 (80.0-98.0) fL MCH 30.9 (27.0-32.0) pg MCHC 32.7 (31.0-37.0) g/dL RDW Std Deviation 44.9 (28.0-62.0) fl RDW Coeff of Lynne 13 (11.0-15.0) % Plt Count 227 (150-400) K/uL MPV 9.40 (7.40-12.00) fL Neut % (Auto) 88.3 H (48.0-80.0) % Lymph % (Auto) 6.9 L (16.0-40.0) % Wirt % (Auto) 4.6 (0.0-15.0) % Eos % (Auto) 0.1 (0.0-7.0) % Baso % (Auto) 0.1 (0.0-1.5) % Neut # (Auto) 9.9 H (1.4-5.7) K/uL Lymph # (Auto) 0.8 (0.6-2.4) K/uL Wirt # (Auto) 0.5 (0.0-0.8) K/uL Eos # (Auto) 0.0 (0.0-0.7) K/uL Baso # (Auto) 0.0 (0.0-0.1) K/uL Nucleated RBC % 0.0 /100WBC Nucleated RBCs # 0 K/uL D-Dimer, Quantitative < 0.19 (0.0-0.50) mg/L FEU Sodium (136-148) mmol/L Potassium (3.5-5.1) mmol/L Chloride (98-107) mmol/L Carbon Dioxide (21.0-32.0) mmol/L BUN (7.0-18.0) mg/dL Creatinine (0.8-1.3) mg/dL Est Cr Clr Drug Dosing mL/min Estimated GFR (MDRD) ml/min Glucose (74-106) mg/dL Calcium (8.5-10.1) mg/dL Magnesium 2.3 (1.8-2.4) mg/dL Total Bilirubin (0.2-1.0) mg/dL AST (15-37) IU/L ALT (14-63) IU/L Alkaline Phosphatase (46-116) U/L Troponin I (0.000-0.056) ng/mL B-Natriuretic Peptide (<100) PG/ML Total Protein (6.4-8.2) g/dL Albumin (3.4-5.0) g/dL Globulin (2.6-4.0) g/dL Albumin/Globulin Ratio (0.9-1.6) 01/02/20 01/02/20 01/02/20 Range/Units 21:14 21:14 21:14 WBC (4.0-11.0) K/uL RBC (4.50-5.90) M/uL Hgb (13.0-17.0) g/dL Hct (38.0-50.0) % MCV (80.0-98.0) fL MCH (27.0-32.0) pg MCHC (31.0-37.0) g/dL RDW Std Deviation (28.0-62.0) fl RDW Coeff of Lynne (11.0-15.0) % Plt Count (150-400) K/uL MPV (7.40-12.00) fL Neut % (Auto) (48.0-80.0) % Lymph % (Auto) (16.0-40.0) % Wirt % (Auto) (0.0-15.0) % Eos % (Auto) (0.0-7.0) % Baso % (Auto) (0.0-1.5) % Neut # (Auto) (1.4-5.7) K/uL Lymph # (Auto) (0.6-2.4) K/uL Wirt # (Auto) (0.0-0.8) K/uL Eos # (Auto) (0.0-0.7) K/uL Baso # (Auto) (0.0-0.1) K/uL Nucleated RBC % /100WBC Nucleated RBCs # K/uL D-Dimer, Quantitative (0.0-0.50) mg/L FEU Sodium 139 (136-148) mmol/L Potassium 4.0 (3.5-5.1) mmol/L Chloride 99 (98-107) mmol/L Carbon Dioxide 31.5 (21.0-32.0) mmol/L BUN 15 (7.0-18.0) mg/dL Creatinine 1.0 (0.8-1.3) mg/dL Est Cr Clr Drug Dosing 74.43 mL/min Estimated GFR (MDRD) > 60.0 ml/min Glucose 111 H (74-106) mg/dL Calcium 9.0 (8.5-10.1) mg/dL Magnesium (1.8-2.4) mg/dL Total Bilirubin 0.6 (0.2-1.0) mg/dL AST 37 (15-37) IU/L ALT 64 H (14-63) IU/L Alkaline Phosphatase 65 (46-116) U/L Troponin I 0.086 H* (0.000-0.056) ng/mL B-Natriuretic Peptide 70 (<100) PG/ML Total Protein 7.9 (6.4-8.2) g/dL Albumin 4.0 (3.4-5.0) g/dL Globulin 3.9 (2.6-4.0) g/dL Albumin/Globulin Ratio 1.0 (0.9-1.6) 01/03/20 01/03/20 01/03/20 Range/Units 03:10 03:10 03:10 WBC 11.20 H (4.0-11.0) K/uL RBC 4.80 (4.50-5.90) M/uL Hgb 15.1 (13.0-17.0) g/dL Hct 45.4 (38.0-50.0) % MCV 94.6 (80.0-98.0) fL MCH 31.5 (27.0-32.0) pg MCHC 33.3 (31.0-37.0) g/dL RDW Std Deviation 44.9 (28.0-62.0) fl RDW Coeff of Lynne 13 (11.0-15.0) % Plt Count 222 (150-400) K/uL MPV 9.50 (7.40-12.00) fL Neut % (Auto) 89.4 H (48.0-80.0) % Lymph % (Auto) 6.5 L (16.0-40.0) % Wirt % (Auto) 3.8 (0.0-15.0) % Eos % (Auto) 0.1 (0.0-7.0) % Baso % (Auto) 0.2 (0.0-1.5) % Neut # (Auto) 10.0 H (1.4-5.7) K/uL Lymph # (Auto) 0.7 (0.6-2.4) K/uL Wirt # (Auto) 0.4 (0.0-0.8) K/uL Eos # (Auto) 0.0 (0.0-0.7) K/uL Baso # (Auto) 0.0 (0.0-0.1) K/uL Nucleated RBC % 0.0 /100WBC Nucleated RBCs # 0 K/uL D-Dimer, Quantitative (0.0-0.50) mg/L FEU Sodium 140 (136-148) mmol/L Potassium 3.7 (3.5-5.1) mmol/L Chloride 99 (98-107) mmol/L Carbon Dioxide 26.4 (21.0-32.0) mmol/L BUN 15 (7.0-18.0) mg/dL Creatinine 0.9 (0.8-1.3) mg/dL Est Cr Clr Drug Dosing 82.70 mL/min Estimated GFR (MDRD) > 60.0 ml/min Glucose 114 H (74-106) mg/dL Calcium 8.9 (8.5-10.1) mg/dL Magnesium (1.8-2.4) mg/dL Total Bilirubin (0.2-1.0) mg/dL AST (15-37) IU/L ALT (14-63) IU/L Alkaline Phosphatase (46-116) U/L Troponin I 0.064 H* (0.000-0.056) ng/mL B-Natriuretic Peptide (<100) PG/ML Total Protein (6.4-8.2) g/dL Albumin (3.4-5.0) g/dL Globulin (2.6-4.0) g/dL Albumin/Globulin Ratio (0.9-1.6) 01/03/20 Range/Units 09:09 WBC (4.0-11.0) K/uL RBC (4.50-5.90) M/uL Hgb (13.0-17.0) g/dL Hct (38.0-50.0) % MCV (80.0-98.0) fL MCH (27.0-32.0) pg MCHC (31.0-37.0) g/dL RDW Std Deviation (28.0-62.0) fl RDW Coeff of Lynne (11.0-15.0) % Plt Count (150-400) K/uL MPV (7.40-12.00) fL Neut % (Auto) (48.0-80.0) % Lymph % (Auto) (16.0-40.0) % Wirt % (Auto) (0.0-15.0) % Eos % (Auto) (0.0-7.0) % Baso % (Auto) (0.0-1.5) % Neut # (Auto) (1.4-5.7) K/uL Lymph # (Auto) (0.6-2.4) K/uL Wirt # (Auto) (0.0-0.8) K/uL Eos # (Auto) (0.0-0.7) K/uL Baso # (Auto) (0.0-0.1) K/uL Nucleated RBC % /100WBC Nucleated RBCs # K/uL D-Dimer, Quantitative (0.0-0.50) mg/L FEU Sodium (136-148) mmol/L Potassium (3.5-5.1) mmol/L Chloride (98-107) mmol/L Carbon Dioxide (21.0-32.0) mmol/L BUN (7.0-18.0) mg/dL Creatinine (0.8-1.3) mg/dL Est Cr Clr Drug Dosing mL/min Estimated GFR (MDRD) ml/min Glucose (74-106) mg/dL Calcium (8.5-10.1) mg/dL Magnesium (1.8-2.4) mg/dL Total Bilirubin (0.2-1.0) mg/dL AST (15-37) IU/L ALT (14-63) IU/L Alkaline Phosphatase (46-116) U/L Troponin I 0.070 H* (0.000-0.056) ng/mL B-Natriuretic Peptide (<100) PG/ML Total Protein (6.4-8.2) g/dL Albumin (3.4-5.0) g/dL Globulin (2.6-4.0) g/dL Albumin/Globulin Ratio (0.9-1.6) Med Orders - Current: Current Medications Albuterol/Ipratropium (Duoneb 3.0-0.5 Mg/3 Ml) 3 ml NEB Q6HRRT [facility] Last Admin: 01/03/20 06:58 Dose: 3 ml Atorvastatin Calcium (Lipitor) 20 mg PO BEDTIME [facility] Furosemide (Lasix) 40 mg PO DAILY [facility] Heparin Sodium (Porcine) (Heparin Sodium) 5,000 units SUBCUT Q8H [facility] Last Admin: 01/03/20 06:58 Dose: 5,000 units Levofloxacin/Dextrose 750 mg/ (Premix) 150 mls @ 100 mls/hr IV Q24H [facility] Last Admin: 01/03/20 01:29 Dose: 100 mls/hr Lisinopril (Prinivil) 10 mg PO DAILY [facility] Last Admin: 01/03/20 08:12 Dose: 10 mg Methylprednisolone Sodium Succinate (Solu-Medrol) 125 mg IVPUSH DAILY [facility] Last Admin: 01/03/20 08:12 Dose: 125 mg Sodium Chloride (Saline Flush) 10 ml FLUSH ASDIRECTED PRN PRN Reason: Keep Vein Open Last Admin: 01/02/20 21:10 Dose: 10 ml Sodium Chloride (Saline Flush) 2.5 ml FLUSH ASDIRECTED PRN PRN Reason: Keep Vein Open Last Admin: 01/02/20 21:10 Dose: 2.5 ml Spironolactone (Aldactone) 25 mg PO DAILY [facility] Last Admin: 01/03/20 08:12 Dose: 25 mg Discontinued Medications Albuterol/Ipratropium (Duoneb 3.0-0.5 Mg/3 Ml) Confirm Administered Dose 3 ml .ROUTE .STK-MED ONE Stop: 01/02/20 20:22 Last Admin: 01/02/20 21:10 Dose: Not Given Albuterol/Ipratropium (Duoneb 3.0-0.5 Mg/3 Ml) 3 ml NEB ONETIME ONE Stop: 01/02/20 20:21 Last Admin: 01/02/20 20:22 Dose: 3 ml Furosemide (Lasix) 40 mg IVPUSH NOW ONE Stop: 01/02/20 23:52 Last Admin: 01/03/20 02:01 Dose: Not Given Furosemide (Lasix) 40 mg IVPUSH NOW ONE Stop: 01/03/20 02:01 Last Admin: 01/03/20 02:00 Dose: 40 mg Ceftriaxone Sodium/Dextrose 2 (gm/ Premix) 50 mls @ 100 mls/hr IV ONETIME ONE Stop: 01/02/20 22:57 Last Admin: 01/02/20 22:46 Dose: 100 mls/hr - Exam General: Alert, Oriented Lungs: Normal Respiratory Effort, Rhonchi, Wheezing GI/Abdominal Exam: Normal Bowel Sounds, Soft, Non-Tender Extremities: Non-Tender, Pedal Edema (+2) Skin: Warm, Dry, Intact Neurological: No New Focal Deficit Sepsis Event Note - Evaluation Sepsis Screening Result: Possible Sepsis Risk - Focused Exam Vital Signs: Vital Signs Temp Pulse Resp BP BP Pulse Ox 01/03/20 08:12 115/64 01/03/20 07:46 36.1 C 74 18 115/64 93 L 01/03/20 00:29 81 22 H 117/54 L 97 01/03/20 00:26 35.9 C L 83 18 117/69 93 L 01/02/20 23:28 36.0 C L 75 22 H 109/62 96 01/02/20 22:48 79 22 H 94 L 01/02/20 22:31 36.1 C 79 19 109/65 97 Date Exam was Performed: 01/03/20 Time Exam was Performed: 10:10 - Problem List Review Problem List Initiated/Reviewed/Updated: Yes - My Orders Last 24 Hours: My Active Orders 01/02/20 23:45 Heparin Sodium 5,000 units SUBCUT Q8H Levofloxacin/Dextrose 5%-Water [Levaquin in D5W 750 MG/150 ML] 750 mg Premix Bag 1 bag IV Q24H methylPREDNISolone Sod Succ [Solu-MEDROL] 125 mg IVPUSH DAILY 01/02/20 23:55 Oxygen Therapy [RC] PRN Up ad Natalia [RC] ASDIRECTED VTE/DVT Education [RC] PER UNIT ROUTINE Vital Signs [RC] Q4H Sequential Compression Device [OM.PC] Per Unit Routine Resuscitation Status Routine 01/02/20 23:56 Antiembolic Devices [RC] PER UNIT ROUTINE Cardiac Monitoring [RC] Q8H Intake and Output [RC] Q12H RT Aerosol Therapy [RC] ASDIRECTED Telemetry Monitoring [Cardiac Monitoring] [RC] . DIRECTED 01/03/20 00:00 Albuterol/Ipratropium [DuoNeb 3.0-0.5 MG/3 ML] 3 ml NEB Q6HRRT 01/03/20 04:46 Communication Order [RC] ROUTINE 01/03/20 09:00 Spironolactone [Aldactone] 25 mg PO DAILY lisinopriL [Prinivil] 10 mg PO DAILY 01/03/20 10:15 Furosemide [Lasix] 40 mg PO DAILY 01/03/20 21:00 atorvaSTATin [Lipitor] 20 mg PO BEDTIME - Plan Plan:: 54 yo male admitted with o asthma exacerbation and possible bronchial pneumonia. We continue solumedrol, duonebs and levaquin. We will wean supplemental O2 as tolerated.
[2020-01-03] MEDS: Furosemide 40 MG Tab PO SCH (11:07)
[2020-01-03] MEDS ORDERED: atorvaSTATin 20 MG Tab PO SCH (21:00)
[2020-01-04] MEDS: Levofloxacin/Dextrose 5%-Water 750 MG in Premix Bag 1 BAG IV SCH (00:10)
[2020-01-04] MEDS: Heparin Sodium 5,000 Units/ML Vial SUBCUT SCH ×2 (00:16→07:45)
[2020-01-04] MEDS: Albuterol/Ipratropium 3.0-0.5 MG/3 ML Neb Soln NEB SCH ×3 (00:17→11:53)
[2020-01-04 06:26] LABS: BLOOD UREA NITROGEN,BUN 21 mg/dL (7.0-18.0); CARBON DIOXIDE,CO2 29.1 mmol/L (21.0-32.0); CHLORIDE,CL 99 mmol/L (98-107); GLUCOSE RANDOM 120 mg/dL (74-106); SODIUM,NA 137 mmol/L (136-148)
[2020-01-04] MEDS: methylPREDNISolone Sodium Succinate 125 MG/2 ML SDV IVPUSH SCH (08:58)
[2020-01-04] MEDS: Lisinopril 10 MG Tab PO SCH (08:58)
[2020-01-04] MEDS: Spironolactone 25 MG Tab PO SCH (08:59)
[2020-01-04] MEDS: Furosemide 40 MG Tab PO SCH (08:59)
--- NOTE | 2020-01-04 12:42 | PCM.DCSUM1 ---
Discharge Summary - Discharge Data Discharge Date: 01/04/20 Discharge Disposition: Home, Self-Care 01 Condition: Stable - Referral to Home Health Primary Care Physician: Yimi Rodriguez MD - Patient Summary/Data Hospital Course: 54 yo male with pmh of asthma, CHF, s/p pacer/ICD, who was admitted for an asthma exacerbation. He presented with one week history of shortness of breath , wheezing and productive cough. He was satting 87% on room air. Laboratory values showed a white count of 11,200, and troponin of 0.086. Chest x-ray was unremarkable. He was treated with dounebs in the ED with improvement of his dyspnea. He was admitted to the medical floor and treated with solumedrol and levaquin. He did have resolution of his symptoms was weened of supplemental oxygen. He is now requesting discharge home. His troponin was trended and remained flat. He did not have any chest pain or angina symptoms while in the hospital. He was discharged home with five more days of prednisone and Levaquin with the resumption of his home inhalers. - Discharge Plan Prescriptions/Med Rec: Albuterol/Ipratropium [DuoNeb 3.0-0.5 MG/3 ML] 3 ml NEB Q6HRRT #30 neb levoFLOXacin [Levaquin] 500 mg PO DAILY #5 tab predniSONE [Prednisone] 50 mg PO DAILY #5 tablet Home Medications: Home Meds Aspirin 81 mg PO DAILY 03/20/17 [History] Furosemide 40 mg PO BID 03/20/17 [History] Lisinopril 10 mg PO DAILY 03/20/17 [History] Spironolactone [Aldactone] 25 mg PO DAILY 03/20/17 [History] atorvaSTATin [Lipitor] 20 mg PO BEDTIME 03/20/17 [History] Amiodarone [Cordarone] 200 mg PO DAILY 01/03/20 [History] Fluticasone/Vilanterol [Breo Ellipta 100-25 MCG Inhalation Kit] 1 puff INH DAILY 01/03/20 [History] Tamsulosin [Flomax] 0.4 mg PO DAILY 01/03/20 [History] Albuterol/Ipratropium [DuoNeb 3.0-0.5 MG/3 ML] 3 ml NEB Q6HRRT #30 neb 01/04/20 [Rx] levoFLOXacin [Levaquin] 500 mg PO DAILY #5 tab 01/04/20 [Rx] predniSONE [Prednisone] 50 mg PO DAILY #5 tablet 01/04/20 [Rx] Forms: ED Department Discharge Referrals: Yimi Rodriguez MD [Primary Care Provider] - - Discharge Summary/Plan Comment DC Time >30 min.: No - Patient Data Vitals - Most Recent: Last Vital Signs Temp 36.3 C 01/04/20 08:00 Pulse 73 01/04/20 08:00 Resp 18 01/04/20 08:00 BP 109/59 L 01/04/20 08:58 Pulse Ox 96 01/04/20 08:00 Weight - Most Recent: 119.295 kg I&O - Last 24 hours: Intake & Output 01/03/20 01/04/20 01/04/20 22:59 06:59 14:59 Intake Total 940 950 Output Total 1300 850 Balance -360 100 Lab Results - Last 24 hrs: Laboratory Results - last 24 hr 01/04/20 01/04/20 Range/Units 05:50 05:50 WBC 15.86 H (4.0-11.0) K/uL RBC 4.45 L (4.50-5.90) M/uL Hgb 13.8 (13.0-17.0) g/dL Hct 42.3 (38.0-50.0) % MCV 95.1 (80.0-98.0) fL MCH 31.0 (27.0-32.0) pg MCHC 32.6 (31.0-37.0) g/dL RDW Std Deviation 46.0 (28.0-62.0) fl RDW Coeff of Lynne 13 (11.0-15.0) % Plt Count 248 (150-400) K/uL MPV 9.80 (7.40-12.00) fL Neut % (Auto) 89.2 H (48.0-80.0) % Lymph % (Auto) 5.3 L (16.0-40.0) % [place] % (Auto) 5.4 (0.0-15.0) % Eos % (Auto) 0.0 (0.0-7.0) % Baso % (Auto) 0.1 (0.0-1.5) % Neut # (Auto) 14.2 H (1.4-5.7) K/uL Lymph # (Auto) 0.8 (0.6-2.4) K/uL [place] # (Auto) 0.9 H (0.0-0.8) K/uL Eos # (Auto) 0.0 (0.0-0.7) K/uL Baso # (Auto) 0.0 (0.0-0.1) K/uL Nucleated RBC % 0.0 /100WBC Nucleated RBCs # 0 K/uL Sodium 137 (136-148) mmol/L Potassium 4.0 (3.5-5.1) mmol/L Chloride 99 (98-107) mmol/L Carbon Dioxide 29.1 (21.0-32.0) mmol/L BUN 21 H (7.0-18.0) mg/dL Creatinine 0.8 (0.8-1.3) mg/dL Est Cr Clr Drug Dosing 93.04 mL/min Estimated GFR (MDRD) > 60.0 ml/min Glucose 120 H (74-106) mg/dL Calcium 9.1 (8.5-10.1) mg/dL CECELIA Results - Last 24 hrs: Microbiology 01/02/20 22:57 Aerobic Blood Culture - Preliminary Blood - Venous - Lab Draw NO GROWTH AFTER 1 DAY Anaerobic Blood Culture - Preliminary NO GROWTH AFTER 1 DAY 01/02/20 22:40 Aerobic Blood Culture - Preliminary Blood - Venous NO GROWTH AFTER 1 DAY Anaerobic Blood Culture - Preliminary NO GROWTH AFTER 1 DAY Med Orders - Current: Current Medications Albuterol/Ipratropium (Duoneb 3.0-0.5 Mg/3 Ml) 3 ml NEB Q6HRRT [facility] Last Admin: 01/04/20 11:53 Dose: 3 ml Atorvastatin Calcium (Lipitor) 20 mg PO BEDTIME [facility] Last Admin: 01/03/20 22:00 Dose: 20 mg Furosemide (Lasix) 40 mg PO DAILY [facility] Last Admin: 01/04/20 08:59 Dose: 40 mg Heparin Sodium (Porcine) (Heparin Sodium) 5,000 units SUBCUT Q8H [facility] Last Admin: 01/04/20 07:45 Dose: 5,000 units Levofloxacin/Dextrose 750 mg/ (Premix) 150 mls @ 100 mls/hr IV Q24H [facility] Last Admin: 01/04/20 00:10 Dose: 100 mls/hr Lisinopril (Prinivil) 10 mg PO DAILY [facility] Last Admin: 01/04/20 08:58 Dose: 10 mg Methylprednisolone Sodium Succinate (Solu-Medrol) 125 mg IVPUSH DAILY [facility] Last Admin: 01/04/20 08:58 Dose: 125 mg Sodium Chloride (Saline Flush) 10 ml FLUSH ASDIRECTED PRN PRN Reason: Keep Vein Open Last Admin: 01/02/20 21:10 Dose: 10 ml Sodium Chloride (Saline Flush) 2.5 ml FLUSH ASDIRECTED PRN PRN Reason: Keep Vein Open Last Admin: 01/02/20 21:10 Dose: 2.5 ml Spironolactone (Aldactone) 25 mg PO DAILY [facility] Last Admin: 01/04/20 08:59 Dose: 25 mg Discontinued Medications Albuterol/Ipratropium (Duoneb 3.0-0.5 Mg/3 Ml) Confirm Administered Dose 3 ml .ROUTE .STK-MED ONE Stop: 01/02/20 20:22 Last Admin: 01/02/20 21:10 Dose: Not Given Albuterol/Ipratropium (Duoneb 3.0-0.5 Mg/3 Ml) 3 ml NEB ONETIME ONE Stop: 01/02/20 20:21 Last Admin: 01/02/20 20:22 Dose: 3 ml Furosemide (Lasix) 40 mg IVPUSH NOW ONE Stop: 01/02/20 23:52 Last Admin: 01/03/20 02:01 Dose: Not Given Furosemide (Lasix) 40 mg IVPUSH NOW ONE Stop: 01/03/20 02:01 Last Admin: 01/03/20 02:00 Dose: 40 mg Ceftriaxone Sodium/Dextrose 2 (gm/ Premix) 50 mls @ 100 mls/hr IV ONETIME ONE Stop: 01/02/20 22:57 Last Admin: 01/02/20 22:46 Dose: 100 mls/hr
[2020-01-04 13:17] VITALS: BP 113/64; PULSE 79
== END 2020-01-04 14:20 | disposition home or self-care (01) | DRG 139 ==
LOC: MW.ED 20:16 → MW.MS 23:03
PROVIDERS: ADMIT Internal Medicine; ATTEND Internal Medicine
DX: J18.0 Bronchopneumonia, unspecified organism (principal); J96.01 Acute respiratory failure with hypoxia; J45.901 Unspecified asthma with (acute) exacerbation; I50.9 Heart failure, unspecified; I11.0 Hypertensive heart disease with heart failure; E78.00 Pure hypercholesterolemia, unspecified; I25.10 Atherosclerotic heart disease of native coronary artery without angina pectoris; Z79.82 Long term (current) use of aspirin; Z88.0 Allergy status to penicillin; Z79.899 Other long term (current) drug therapy
CPT/HCPCS: 36415; 71046; 71046-26; 80048; 80053; 83735; 83880; 84484; 85025; 85379; 87040; 93005; 94640; 96365; 99285-25; A9270-GY; J0696; J1644; J1940; J1956; J2930; J7620-GY

== ENCOUNTER 2020-05-09 15:41 | Emergency (ER) | payer BC, OTHER ==
[2020-05-09] MEDS ORDERED: Lidocaine 1% with EPINEPHrine 1:100,000 20 ML MDV INJECT ONE (15:59)
[2020-05-09] MEDS ORDERED: Lidocaine 1% with EPINEPHrine 1:100,000 20 ML MDV ONE (16:00)
[2020-05-09] MEDS ORDERED: Diphtheria,Pertussis(Acell),Tetanus Vaccine 0.5 ML Syringe IM ONE (16:00)
[2020-05-09] MEDS ORDERED: Diphtheria,Pertussis(Acell),Tetanus Vaccine 0.5 ML Syringe ONE (16:01)
[2020-05-09] MEDS ORDERED: Sodium Chloride 0.9% 1,000 ML IV ONE (16:28)
[2020-05-09] MEDS ORDERED: Sodium Chloride 0.9% 2.5 ML Syringe FLUSH PRN (16:28)
[2020-05-09] MEDS ORDERED: Sodium Chloride 0.9% 10 ML Syringe FLUSH PRN (16:28)
--- NOTE | 2020-05-09 16:32 | EDM.PDOC ---
ED HPI GENERAL MEDICAL PROBLEM - General Chief Complaint: Laceration Stated Complaint: CUT FINGER Time Seen by Provider: 05/09/20 16:28 - History of Present Illness INITIAL COMMENTS - FREE TEXT/NARRATIVE: History of present illness: 55-year-old male presenting with right hand injury, was out fishing and attempted to cut the zip ties on his fishing pole, when the knife slipped and he lacerated his right hand webspace between the thumb and index finger and began to have spurting blood from that area. It was a serrated knife. Patient drove straight here. Bleeding has continued. On arrival here he is diaphoretic, hypotensive and tachycardic. Patient placed immediately in a room and direct pressure immediately applied to the bleeding area. Review of systems: As per history of present illness and below otherwise all systems reviewed and negative. Past medical history: As per history of present illness and as reviewed below otherwise noncontributory. CHF, hypertension Surgical history: As per history of present illness and as reviewed below otherwise noncontributory. Social history: No reported history of drug or alcohol abuse. Family history: As per history of present illness and as reviewed below otherwise noncontributory. Physical exam: GEN: Diaphoretic, hypotensive, pale, ill appearing HEENT: Atraumatic, normocephalic, mucous membranes moist, forehead very diaphoretic Neck: supple, nontender, trachea midline. Lungs: No respiratory distress. Heart: Tachycardic Extremities: Open 2 cm laceration right hand, webspace between thumb and index finger that is actively bleeding briskly, pumping/spurting blood. Source of bleeding not able to be visualized, tourniquet placed. Musculature visible, there appears to be a small inline/linear laceration of the muscle body. However the patient is able to make a full fist and has full intact strength of all 5 fingers, antitank assault gunner strength, flexion and extension at the wrist. Distally neurovascularly intact. Neuro: Awake, alert, oriented. Neuro Exam nonfocal. Skin: Pale, diaphoretic, 2 cm briskly bleeding laceration webspace of the right hand Diagnostics: None Therapeutics: IV fluids MDM: Impression: Webspace laceration right hand, arterial laceration Plan: [] Definitive disposition and diagnosis as appropriate pending reevaluation and review of above. - Related Data Allergies Allergy/AdvReac Type Severity Reaction Status Date / Time Penicillins Allergy Cannot Verified 05/09/20 15:57 Remember Home Meds: Home Meds Aspirin 81 mg PO DAILY 03/20/17 [History] Furosemide 40 mg PO BID 03/20/17 [History] Lisinopril 10 mg PO DAILY 03/20/17 [History] Spironolactone [Aldactone] 25 mg PO DAILY 03/20/17 [History] atorvaSTATin [Lipitor] 20 mg PO BEDTIME 03/20/17 [History] Amiodarone [Cordarone] 200 mg PO DAILY 01/03/20 [History] Fluticasone/Vilanterol [Breo Ellipta 100-25 MCG Inhalation Kit] 1 puff INH DAILY 01/03/20 [History] Tamsulosin [Flomax] 0.4 mg PO DAILY 01/03/20 [History] Albuterol/Ipratropium [DuoNeb 3.0-0.5 MG/3 ML] 3 ml NEB Q6HRRT #30 neb 01/04/20 [Rx] levoFLOXacin [Levaquin] 500 mg PO DAILY #5 tab 01/04/20 [Rx] predniSONE [Prednisone] 50 mg PO DAILY #5 tablet 01/04/20 [Rx] cephALEXin [Keflex] 1,000 mg PO BID #40 cap 05/09/20 [Rx] Past Medical History HEENT History: Reports: Impaired Vision Other HEENT History: wears glasses Cardiovascular History: Reports: CAD, High Cholesterol, Hypertension, Other (See Below) Other Cardiovascular History: rheumatoid fever Respiratory History: Reports: Asthma, Other (See Below) Other Respiratory History: strep throat Gastrointestinal History: Reports: None Other Gastrointestinal History: States he has a haital hernia Genitourinary History: Reports: None Musculoskeletal History: Reports: None Neurological History: Reports: None Psychiatric History: Reports: None Endocrine/Metabolic History: Reports: None Insulin Pump Model and Lock Tender: N/A Hematologic History: Reports: None Immunologic History: Reports: None Oncologic (Cancer) History: Reports: None Dermatologic History: Reports: None - Infectious Disease History Infectious Disease History: Reports: Chicken Pox, Rheumatic Fever - Past Surgical History Head Surgeries/Procedures: Reports: None GI Surgical History: Reports: Hernia, Inguinal Social & Family History - Family History Family Medical History: Noncontributory - Tobacco Use Smoking Status *Q: Never Smoker - Caffeine Use Caffeine Use: Reports: None Caffeine Use Comment: 1 cup daily - Recreational Drug Use Recreational Drug Use: No ED ROS GENERAL - Review of Systems Review Of Systems: See Below (See HPI) ED EXAM, SKIN/RASH Exam: See Below (See HPI) ED SKIN PROCEDURES - Laceration/Wound Repair Right Hand Appearance: Muscle, Clean Suture Size: 4-0 # of Sutures: 2 (Bleeding not well controlled.) Repaired with: Vicryl Progress/Comments: Bleeding controlled with deep sutures via Monocryl. Bleeding control not obtained. Bleeding well controlled with direct pressure, however not maintained. Attempted bleeding control with cauterization. Bleeding not well controlled, continued/worsening of bleeding. Patient still hypotensive. Course - Vital Signs Text/Narrative:: Patient with deep laceration to the right hand, actively bleeding, bleeding control measures not successful. Hemorrhage tourniquet placed which slowed the bleeding. Surgeon called who came and tied off the arteries. The patient was initially hypotensive and tachycardic and pale and diaphoretic. After 1 L of IV fluids and control of the bleeding, the patient felt much better. No distress. Coloration improved. No longer diaphoretic. Labs checked and showed the patient is anemic, 2 g drop from prior lab draw several months ago, and hypokalemic, however patient is feeling very well. Surgeon at the bedside monitoring the patient as well. After discussion, as the patient is feeling much better and does not want to stay in the hospital, we will release him after potassium repletion. Large pressure dressing placed on the patient's hand. Had a long discussion with the patient explaining symptoms to watch out for and when to return to the emergency department. Will cover with Keflex for infectious prophylaxis. Last Recorded V/S: Last Vital Signs Temp 96.0 F L 05/09/20 15:54 Pulse 96 05/09/20 18:21 Resp 16 05/09/20 18:21 BP 99/60 05/09/20 18:21 Pulse Ox 96 05/09/20 18:21 - Orders/Labs/Meds Orders: Active Orders 24 hr Category Date Time Status Vaccines to be Administered [RC] PER UNIT ROUTINE Care 05/09/20 16:00 Active Saline Lock Insert [OM.PC] Stat Oth 05/09/20 16:28 Ordered Labs: Laboratory Tests 05/09/20 05/09/2005/09/20 Range/Units 16:40 16:40 16:40 WBC 5.50 (4.0-11.0) K/uL RBC 3.73 L (4.50-5.90) M/uL Hgb 11.5 L (13.0-17.0) g/dL Hct 35.5 L (38.0-50.0) % MCV 95.2 (80.0-98.0) fL MCH 30.8 (27.0-32.0) pg MCHC 32.4 (31.0-37.0) g/dL RDW Std Deviation 43.1 (28.0-62.0) fl RDW Coeff of Lynne 12 (11.0-15.0) % Plt Count 215 (150-400) K/uL MPV 9.90 (7.40-12.00) fL Neut % (Auto) 69.6 (48.0-80.0) % Lymph % (Auto) 21.5 (16.0-40.0) % [place] % (Auto) 7.1 (0.0-15.0) % Eos % (Auto) 1.3 (0.0-7.0) % Baso % (Auto) 0.5 (0.0-1.5) % Neut # (Auto) 3.8 (1.4-5.7) K/uL Lymph # (Auto) 1.2 (0.6-2.4) K/uL [place] # (Auto) 0.4 (0.0-0.8) K/uL Eos # (Auto) 0.1 (0.0-0.7) K/uL Baso # (Auto) 0.0 (0.0-0.1) K/uL Nucleated RBC % 0.0 /100WBC Nucleated RBCs # 0 K/uL INR 1.09 APTT 25.2 (18.6-31.3) SEC Sodium 144 (136-148) mmol/L Potassium 2.4 L* (3.5-5.1) mmol/L Chloride 112 H (98-107) mmol/L Carbon Dioxide 21.9 (21.0-32.0) mmol/L BUN 12 (7.0-18.0) mg/dL Creatinine 0.6 L (0.8-1.3) mg/dL Est Cr Clr Drug Dosing 122.58 mL/min Estimated GFR (MDRD) > 60.0 ml/min Glucose 108 H (74-106) mg/dL Calcium 5.5 L (8.5-10.1) mg/dL Total Bilirubin 0.4 (0.2-1.0) mg/dL AST 19 (15-37) IU/L ALT 25 (14-63) IU/L Alkaline Phosphatase 34 L (46-116) U/L Total Protein 4.4 L (6.4-8.2) g/dL Albumin 2.2 L (3.4-5.0) g/dL Globulin 2.2 L (2.6-4.0) g/dL Albumin/Globulin Ratio 1.0 (0.9-1.6) Blood Type Antibody Screen 05/09/20 Range/Units 16:40 WBC (4.0-11.0) K/uL RBC (4.50-5.90) M/uL Hgb (13.0-17.0) g/dL Hct (38.0-50.0) % MCV (80.0-98.0) fL MCH (27.0-32.0) pg MCHC (31.0-37.0) g/dL RDW Std Deviation (28.0-62.0) fl RDW Coeff of Lynne (11.0-15.0) % Plt Count (150-400) K/uL MPV (7.40-12.00) fL Neut % (Auto) (48.0-80.0) % Lymph % (Auto) (16.0-40.0) % [place] % (Auto) (0.0-15.0) % Eos % (Auto) (0.0-7.0) % Baso % (Auto) (0.0-1.5) % Neut # (Auto) (1.4-5.7) K/uL Lymph # (Auto) (0.6-2.4) K/uL [place] # (Auto) (0.0-0.8) K/uL Eos # (Auto) (0.0-0.7) K/uL Baso # (Auto) (0.0-0.1) K/uL Nucleated RBC % /100WBC Nucleated RBCs # K/uL INR APTT (18.6-31.3) SEC Sodium (136-148) mmol/L Potassium (3.5-5.1) mmol/L Chloride (98-107) mmol/L Carbon Dioxide (21.0-32.0) mmol/L BUN (7.0-18.0) mg/dL Creatinine (0.8-1.3) mg/dL Est Cr Clr Drug Dosing mL/min Estimated GFR (MDRD) ml/min Glucose (74-106) mg/dL Calcium (8.5-10.1) mg/dL Total Bilirubin (0.2-1.0) mg/dL AST (15-37) IU/L ALT (14-63) IU/L Alkaline Phosphatase (46-116) U/L Total Protein (6.4-8.2) g/dL Albumin (3.4-5.0) g/dL Globulin (2.6-4.0) g/dL Albumin/Globulin Ratio (0.9-1.6) Blood Type A POSITIVE Antibody Screen NEGATIVE Meds: Medications Discontinued Medications Generic Name Dose Route Start Last Admin Trade Name Freq PRN Reason Stop Dose Admin Bacitracin Confirm 05/09/20 17:09 05/09/20 17:13 Bacitracin Oint 1 Gm Administered 05/09/20 17:10 1 dose Dose Administration 1 dose .ROUTE .STK-MED ONE Bacitracin 1 dose 05/09/20 17:12 05/09/20 17:13 Bacitracin Oint 1 Gm TOP 05/09/20 17:13 Not Given ONETIME ONE Cephalexin Confirm 05/09/20 18:51 05/09/20 18:58 Keflex Administered 05/09/20 18:52 Not Given Dose 1,000 mg .ROUTE .STK-MED ONE Cephalexin 1,000 mg 05/09/20 19:23 05/09/20 19:36 Keflex PO 05/09/20 19:24 1,000 mg ONETIME ONE Administration Diphtheria/Tetanus/Acell Pertussis 0.5 ml 05/09/20 16:00 05/09/20 16:31 Adacel IM 05/09/20 16:01 0.5 ml .ONCE ONE Administration Diphtheria/Tetanus/Acell Pertussis Confirm 05/09/20 16:01 05/09/20 16:36 Adacel Administered 05/09/20 16:02 Not Given Dose 0.5 ml .ROUTE .STK-MED ONE Sodium Chloride 1,000 mls @ 999 mls/hr 05/09/20 16:28 05/09/20 16:32 Normal Saline IV 05/09/20 17:28 999 mls/hr .Bolus ONE Administration Potassium Chloride 40 meq/ 100 mls @ 25 mls/hr 05/09/20 17:39 05/09/20 18:42 Premix IV 05/09/20 21:38 25 mls/hr ONETIME ONE Administration Lidocaine/Epinephrine 20 ml 05/09/20 15:59 05/09/20 16:32 Xylocaine 1% With Epinephrine 1:100,000 INJECT 05/09/20 16:00 20 ml ONETIME ONE Administration Lidocaine/Epinephrine Confirm 05/09/20 16:00 05/09/20 16:32 Xylocaine 1% With Epinephrine 1:100,000 Administered 05/09/20 16:01 Not Given Dose 20 ml .ROUTE .STK-MED ONE Potassium Chloride 40 meq 05/09/20 17:37 05/09/20 18:26 Klor-Con M20 PO 05/09/20 17:38 40 meq ONETIME ONE Administration Sodium Chloride 10 ml 05/09/20 16:28 05/09/20 16:32 Saline Flush FLUSH 10 ml ASDIRECTED PRN Administration Keep Vein Open Sodium Chloride 2.5 ml 05/09/20 16:28 05/09/20 16:32 Saline Flush FLUSH 2.5 ml ASDIRECTED PRN Administration Keep Vein Open - Re-Assessments/Exams Free Text/Narrative Re-Assessment/Exam: 05/09/20 16:23 Unable to control the bleeding. Case discussed with Dr. Okeefe, general surgeon on-call, who will come to evaluate the patient now. 05/09/20 16:43 Dr. Reeder at the bedside and will examine the patient 05/09/20 17:19 Bleeding now well controlled. Bleeding digital artery visualized and tied off by Dr. Reeder. Dr. Okeefe sutured the patient's wound closed as well. Still somewhat hypotensive, 90s systolic after 1 L of normal saline. However the patient has a history of CHF. Therefore we will continue to monitor blood pressure and defer additional fluid administration. 05/09/20 18:30 Feeling well. Blood pressure is improved. He is sitting up on the edge of the bed without feeling dizzy or lightheaded nor is he diaphoretic. His color is much improved and he is cheerful and making jokes. Patient request to be assisted to stand up and walk to the bathroom. Nursing was able to assist the patient. He tolerated well. 05/09/20 19:09 Patient is still feeling well, would like to be discharged. Has not received full IV dose of potassium, however has already received 40 mg p.o. and 10 mg IV. Will discharge the patient. Discussed plan of care and return instructions. Pressure dressing checked again, still in place, no signs of active bleeding, some dried blood from initial placement, otherwise no signs of rebleeding of the arterial bleed. Departure - Departure Time of Disposition: 19:10 Disposition: Home, Self-Care 01 Clinical Impression: Injury of radial digital artery of right hand, Hand laceration Laceration of digital artery Qualifiers: Encounter type: initial encounter Qualified Code(s): S65.519A - Laceration of blood vessel of unspecified finger, initial encounter - Discharge Information Prescriptions: cephALEXin [Keflex] 1,000 mg PO BID #40 cap Instructions: Laceration Care, Adult, [id number], Sutures, [place], or Adhesive Wound Closure, [id number], Sutured Wound Care, [id number] Referrals: PCP,None [Primary Care Provider] - Sis Okeefe MD [Physician] - 1 Week Forms: ED Department Discharge Additional Instructions: Keep a close eye on the laceration of your right hand. Keep dressing on for 24 hours. If you bleed through the dressing, please return to the emergency department. You will need to have the sutures removed in 1 week, please follow-up in the emergency department for suture removal or with Dr. Okeefe. If you start bleeding again and you cannot stop the bleeding after holding firm pressure for 20 minutes, please return to the emergency department. The following information is given to patients seen in the emergency department who are being discharged to home. This information is to outline your options for follow-up care. We provide all patients seen in our emergency department with a follow-up referral. The need for follow-up, as well as the timing and circumstances, are variable depending upon the specifics of your emergency department visit. If you don't have a primary care physician on staff, we will provide you with a referral. We always advise you to contact your personal physician following an emergency department visit to inform them of the circumstance of the visit and for follow-up with them and/or the need for any referrals to a consulting specialist. The emergency department will also refer you to a specialist when appropriate. This referral assures that you have the opportunity for follow-up care with a specialist. All of these measure are taken in an effort to provide you with optimal care, which includes your follow-up. Under all circumstances we always encourage you to contact your private physician who remains a resource for coordinating your care. When calling for follow-up care, please make the office aware that this follow-up is from your recent emergency room visit. If for any reason you are refused follow-up, please contact the [facility] Emergency Department at and asked to speak to the emergency department charge nurse. [facility] - Primary [facility] [address] [place] [id number] [address] Critical Care Note - Critical Care Note Total Time (mins): 35 Comments: Bleeding control attempts and hemorrhaging, hypotensive tachycardic patient. Sepsis Event Note (ED) - Evaluation Sepsis Screening Result: No Definite Risk - My Orders Last 24 Hours: My Active Orders 05/09/20 16:00 Vaccines to be Administered [RC] PER UNIT ROUTINE 05/09/20 16:28 Saline Lock Insert [OM.PC] Stat - Assessment/Plan Last 24 Hours: My Active Orders 05/09/20 16:00 Vaccines to be Administered [RC] PER UNIT ROUTINE 05/09/20 16:28 Saline Lock Insert [OM.PC] Stat
[2020-05-09] MEDS ORDERED: Bacitracin Oint 1 GM U/D Packet ONE (17:09)
[2020-05-09] MEDS ORDERED: Bacitracin Oint 1 GM U/D Packet TOP ONE (17:12)
--- NOTE | 2020-05-09 17:21 | PCM.CONS ---
H&P History of Present Illness - General Date of Service: 05/09/20 Source of Information: Patient History Limitations: Reports: No Limitations - History of Present Illness Initial Comments - Free Text/Narative: Patient is a 55 year old male who presents with a laceration to his right hand. He was using a knife to cut zip ties on his fishing [place] when the knife slipped and he cut himself on the dorsal aspect of his right thumb at the base. There was brisk bleeding and he was brought to the ER. They attempted to close the wound but there appeared to be arterial bleeding. A tourniquet was applied. I was asked to come evaluate the wound. He denies paresthesias or loss of motor function. He take a baby aspirin daily. - Related Data Allergies/Adverse Reactions: Allergies Allergy/AdvReac Type Severity Reaction Status Date / Time Penicillins Allergy Cannot Verified 05/09/20 15:57 Remember Home Medications: Home Meds Aspirin 81 mg PO DAILY 03/20/17 [History] Furosemide 40 mg PO BID 03/20/17 [History] Lisinopril 10 mg PO DAILY 03/20/17 [History] Spironolactone [Aldactone] 25 mg PO DAILY 03/20/17 [History] atorvaSTATin [Lipitor] 20 mg PO BEDTIME 03/20/17 [History] Amiodarone [Cordarone] 200 mg PO DAILY 01/03/20 [History] Fluticasone/Vilanterol [Breo Ellipta 100-25 MCG Inhalation Kit] 1 puff INH DAILY 01/03/20 [History] Tamsulosin [Flomax] 0.4 mg PO DAILY 01/03/20 [History] Albuterol/Ipratropium [DuoNeb 3.0-0.5 MG/3 ML] 3 ml NEB Q6HRRT #30 neb 01/04/20 [Rx] levoFLOXacin [Levaquin] 500 mg PO DAILY #5 tab 01/04/20 [Rx] predniSONE [Prednisone] 50 mg PO DAILY #5 tablet 01/04/20 [Rx] Past Medical History HEENT History: Reports: Impaired Vision Other HEENT History: wears glasses Cardiovascular History: Reports: CAD, High Cholesterol, Hypertension, Other (See Below) Other Cardiovascular History: rheumatoid fever Respiratory History: Reports: Asthma, Other (See Below) Other Respiratory History: strep throat Gastrointestinal History: Reports: None Other Gastrointestinal History: States he has a haital hernia Genitourinary History: Reports: None Musculoskeletal History: Reports: None Neurological History: Reports: None Psychiatric History: Reports: None Endocrine/Metabolic History: Reports: None Insulin Pump Model and Dry Room Operator: N/A Hematologic History: Reports: None Immunologic History: Reports: None Oncologic (Cancer) History: Reports: None Dermatologic History: Reports: None - Infectious Disease History Infectious Disease History: Reports: Chicken Pox, Rheumatic Fever - Past Surgical History Head Surgeries/Procedures: Reports: None GI Surgical History: Reports: Hernia, Inguinal Social & Family History - Family History Family Medical History: Noncontributory - Tobacco Use Smoking Status *Q: Never Smoker - Caffeine Use Caffeine Use: Reports: None Caffeine Use Comment: 1 cup daily - Recreational Drug Use Recreational Drug Use: No H&P Review of Systems - Review of Systems: Review Of Systems: Comprehensive ROS is negative, except as noted in HPI. Exam - Exam Exam: See Below - Vital Signs Vital Signs: Last Vital Signs Temp 35.6 C L 05/09/20 15:54 Pulse 105 H 05/09/20 16:33 Resp 16 05/09/20 16:33 BP 100/61 05/09/20 16:33 Pulse Ox 94 L 05/09/20 16:33 Weight: 118.841 kg - Exam General: Alert, Oriented HEENT: Conjunctiva Clear, Mucosa Moist & [place] Lungs: Normal Respiratory Effort Cardiovascular: Regular Rate Extremities: Other (2 cm laceration across the dorsal base of the right thumb extending into the webspace of the thumb and pointer finger. There was a lacerated digital artery. The wound was ~ 5mm deep. Intact motor and sensory function. ) - Patient Data Lab Results Last 24 hrs: Laboratory Results - last 24 hr 05/09/20 Range/Units 16:40 WBC 5.50 (4.0-11.0) K/uL RBC 3.73 L (4.50-5.90) M/uL Hgb 11.5 L (13.0-17.0) g/dL Hct 35.5 L (38.0-50.0) % MCV 95.2 (80.0-98.0) fL MCH 30.8 (27.0-32.0) pg MCHC 32.4 (31.0-37.0) g/dL RDW Std Deviation 43.1 (28.0-62.0) fl RDW Coeff of Lynne 12 (11.0-15.0) % Plt Count 215 (150-400) K/uL MPV 9.90 (7.40-12.00) fL Neut % (Auto) 69.6 (48.0-80.0) % Lymph % (Auto) 21.5 (16.0-40.0) % [place] % (Auto) 7.1 (0.0-15.0) % Eos % (Auto) 1.3 (0.0-7.0) % Baso % (Auto) 0.5 (0.0-1.5) % Neut # (Auto) 3.8 (1.4-5.7) K/uL Lymph # (Auto) 1.2 (0.6-2.4) K/uL [place] # (Auto) 0.4 (0.0-0.8) K/uL Eos # (Auto) 0.1 (0.0-0.7) K/uL Baso # (Auto) 0.0 (0.0-0.1) K/uL Nucleated RBC % 0.0 /100WBC Nucleated RBCs # 0 K/uL Result Diagrams: 05/09/20 16:40 05/09/20 16:40 Sepsis Event Note - Evaluation Sepsis Screening Result: No Definite Risk - Focused Exam Vital Signs: Vital Signs Temp Pulse Resp BP Pulse Ox 05/09/20 16:33 105 H 16 100/61 94 L 05/09/20 15:54 35.6 C L 118 H 18 97/60 98 Date Exam was Performed: 05/09/20 Time Exam was Performed: 17:39 Consult PN Assessment/Plan Procedures: Procedures ASSAY OF CK (CPK) (11/12/14) ASSAY OF FREE THYROXINE (08/21/16) ASSAY OF NATRIURETIC PEPTIDE (08/21/16) ASSAY OF TROPONIN QUANT (11/12/14) ASSAY THYROID STIM HORMONE (08/21/16) CHEST X-RAY 1 VIEW FRONTAL (11/12/14) CHEST X-RAY 2VW FRONTAL&LATL (08/21/16) COMPLETE CBC AUTOMATED (12/31/19) COMPLETE CBC W/AUTO DIFF WBC (08/21/16) COMPREHEN METABOLIC PANEL (12/31/19) CREATINE MB FRACTION (11/12/14) ELECTROCARDIOGRAM TRACING (12/27/19) EMERGENCY DEPT VISIT (12/31/19) EMERGENCY DEPT VISIT (12/27/19) EMERGENCY DEPT VISIT (03/20/17) EMERGENCY DEPT VISIT (11/12/14) GLYCOSYLATED HEMOGLOBIN TEST (08/21/16) INFLUENZA ASSAY W/OPTIC (12/27/19) LIPID PANEL (08/21/16) METABOLIC PANEL TOTAL CA (11/27/16) ROUTINE VENIPUNCTURE (12/31/19) THER/PROPH/DIAG INJ IV PUSH (11/12/14) TTE W/DOPPLER COMPLETE (01/29/18) X-RAY EXAM CHEST 1 VIEW (12/31/19) X-RAY EXAM CHEST 2 VIEWS (12/27/19) (1) Finger laceration SNOMED Code(s): 790132357 Code(s): S61.219A - LACERATION W/O FB OF UNSP FINGER W/O DAMAGE TO NAIL, INIT Current Visit: Yes Problem List Initiated/Reviewed/Updated: Yes Plan: I suture ligated the arterial ends. The tourniquet was loosened and the bleeding was controlled. I closed the wound with interrupted 3-0 ethilon sutures. Bacitracin, Xeroform and kerlix pressure dressing was placed. Patient to keep this in place for 2 days. Encouraged to avoid excessive activity on that hand. Antibiotics per ER physicians discretion. Will see in 1 week for suture removal. come back to ER should any issues arise.
[2020-05-09 17:31] LABS: BLOOD UREA NITROGEN,BUN 12 mg/dL (7.0-18.0); CARBON DIOXIDE,CO2 21.9 mmol/L (21.0-32.0); CHLORIDE,CL 112 mmol/L (98-107); GLUCOSE RANDOM 108 mg/dL (74-106); SODIUM,NA 144 mmol/L (136-148)
[2020-05-09 17:37] LABS: POTASSIUM,K 2.4 mmol/L (3.5-5.1)
[2020-05-09] MEDS ORDERED: Potassium Chloride 20 MEQ Tab.ER PO ONE (17:37)
[2020-05-09] MEDS ORDERED: Potassium Chloride Riders 40 MEQ in Premix Bag 1 BAG IV ONE (17:39)
[2020-05-09 18:21] VITALS: BP 99/60; PULSE 96
--- NOTE | 2020-05-09 18:49 | OR ---
SURGEON: SIS OKEEFE MD DATE OF PROCEDURE: 05/09/2020 PREOPERATIVE DIAGNOSIS: Laceration to right hand. POSTOPERATIVE DIAGNOSIS: Laceration to right hand. PROCEDURES PERFORMED: Laceration repair, arterial ligation. PRIMARY SURGEON: Sis Okeefe MD. ANESTHESIA: Local. FLUIDS: 1 L crystalloid. ESTIMATED BLOOD LOSS: 5 mL. FINDINGS: 2 cm laceration over the base of the dorsal aspect of the right thumb extending into the webspace between the thumb and 1st digit. Laceration of the medial branch of the digital artery on the thumb. COMPLICATIONS: None. INDICATIONS: The patient is a 55-year-old male who sustained a laceration to his thumb today. He presented to the emergency room. The emergency room physician prepped, draped and cleaned the wound. She attempted to close it; however, she noted there to be arterial bleeding. I was called in for consultation. The patient had been consented prior to my arrival. PROCEDURE IN DETAIL: The patient was met in the stabilization room. A tourniquet had been placed on the distal right forearm. The wound was prepped and draped. I inspected the wound. It appeared to be approximately 2 cm across and about 5 mm deep. It was about 2 mm wide. Upon inspection of the wound, there appeared to be 2 cut ends of the vascular structure just underneath the skin. This appeared to be arterial. Using a 3-0 Vicryl stick tie, I suture ligated the proximal and distal end of the artery. The tourniquet was then loosened by the RN. The wound appeared to be hemostatic. I closed the wound with interrupted 3-0 Ethilon sutures. I then checked the patient's motor function and neurological status. He had appeared to be neurologically intact with no loss of sensation to the thumb. His gross motor movement of the finger was intact; however, with motion, the wound started bleeding again. I removed 3 of my stitches overlying the artery and noted 1 of them to have gone through the distal artery. Using another 3-0 Vicryl suture, I ligated this more proximally. This controlled the bleeding. I then re-closed the wound with interrupted 3-0 Ethilon sutures making sure to avoid the artery this time. The patient then moved this thumb and there was no further bleeding noted. Bacitracin, Xeroform gauze, and a Kerlix wrap was placed over the wound. He tolerated the procedure well with no immediate complications. POLO ROGERS /[id number]
[2020-05-09] MEDS ORDERED: Cephalexin 500 MG Cap ONE (18:51)
[2020-05-09] MEDS ORDERED: Cephalexin 500 MG Cap PO ONE (19:23)
== END 2020-05-09 20:30 | disposition home or self-care (01) ==
LOC: MW.ED 15:41
DX: S65.111A Laceration of radial artery at wrist and hand level of right arm, initial encounter (principal); R00.0 Tachycardia, unspecified; I11.0 Hypertensive heart disease with heart failure; I50.9 Heart failure, unspecified; E78.00 Pure hypercholesterolemia, unspecified; I25.10 Atherosclerotic heart disease of native coronary artery without angina pectoris; J45.909 Unspecified asthma, uncomplicated; Z23 Encounter for immunization; Z88.0 Allergy status to penicillin; Z79.82 Long term (current) use of aspirin; Z79.899 Other long term (current) drug therapy; W26.0XXA Contact with knife, initial encounter
CPT/HCPCS: 35207; 36415; 80053; 85025; 85610; 85730; 86850; 86900; 86901; 90471; 90715; 96361; 96365; 96366; 99285; A9270; J3480; J7030; 12001; 99283

== ENCOUNTER 2020-07-24 19:32 | Inpatient (IN) | payer OTHER ==
[2020-07-24] MEDS ORDERED: Sodium Chloride 0.9% 2.5 ML Syringe FLUSH PRN (19:44)
[2020-07-24] MEDS ORDERED: Aspirin 81 MG Tab.Chew PO ONE (19:44)
[2020-07-24] MEDS ORDERED: Sodium Chloride 0.9% 10 ML Syringe FLUSH PRN (19:44)
[2020-07-24 20:16] LABS: BLOOD UREA NITROGEN,BUN 15 mg/dL (7.0-18.0); CARBON DIOXIDE,CO2 26.4 mmol/L (21.0-32.0); CHLORIDE,CL 101 mmol/L (98-107); GLUCOSE RANDOM 96 mg/dL (74-106); POTASSIUM,K 4.5 mmol/L (3.5-5.1); SODIUM,NA 135 mmol/L (136-148)
--- NOTE | 2020-07-24 20:22 | CR ---
HISTORY: Chest pain. TECHNIQUE: One view of the chest. COMPARISON: 01/02/2020. FINDINGS: There is increased opacity in the right lower chest which may indicate the presence of an infiltrate. The left lung appears clear of focal opacity. No pneumothorax. No moderate or large pleural effusion. Cardiac size is prominent but exaggerated by the portable technique. There is a AICD. Its position appears somewhat different than on the prior examination though this may relate to differences in technique and differences in patient positioning. IMPRESSION: 1. Right lower lung zone opacity which may indicate the presence of an infiltrate. 2. There is an AICD. Its position appears somewhat different than on the prior examination though this may relate to differences in technique and differences in patient positioning. PA and lateral films (supplementing this portable film) could be obtained for more direct comparison of its current position to that of its prior position. Dictated by Ulises Dumont MD @ 07/24/2020 8:20:12 PM Dictated by: Ulises Dumont MD @ 07/24/2020 20:20:16 (Electronically Signed)
--- NOTE | 2020-07-24 20:25 | EDM.PDOC ---
ED HPI GENERAL MEDICAL PROBLEM - General Chief Complaint: Chest Pain Stated Complaint: NOT FEELING WELL, BODY ACHES Time Seen by Provider: 07/24/20 19:40 - History of Present Illness INITIAL COMMENTS - FREE TEXT/NARRATIVE: CHIEF COMPLAINT(S): Shortness of breath HISTORY OF PRESENT ILLNESS: This is a 55-year-old man with a past medical history of obesity, CHF, COPD who comes to the emergency department with a chief complaint of shortness of breath. The patient states that for approximately 3 days now has been experiencing worsening shortness of breath. He states that he has had a productive cough associated with cloudy sputum. He states that he also developed congestion. He denies any loss of taste or smell but states that his landlord was positive for coronavirus. He states that he was tested 2 days ago for coronavirus and it was found to be negative however he is feeling worse. He states that he has had increased frequency of albuterol use. He denies any wheezing. In addition during this time he says that his chest feels like it is attacking him on his left side. He states that this is associated with nausea, diaphoresis and is worse with anything. He states that he has had some worsening orthopnea but no increased lower extremity edema. He does denies any overt chest pain. He denies any recent travel or surgery. He denies any prior history of DVT or PE. REVIEW OF SYSTEMS: Constitutional: Denies fever, chills. Eyes: Denies eye pain Ears, Nose, Mouth, & Throat: Positive for nasal congestion Cardiovascular: Positive for chest discomfort, orthopnea Respiratory: Positive shortness of breath Gastrointestinal: Positive for nausea. Denies vomiting, diarrhea, hematochezia, hematemesis Genitourinary: Denies hematuria Skin:Denies a rash Neurological: Denies blurred vision Psychiatric: Denies depression PAST MEDICAL HISTORY: As per history of present illness and as reviewed below otherwise noncontributory. SURGICAL HISTORY: As per history of present illness and as reviewed below ot herwise noncontributory. SOCIAL HISTORY: As per history of present illness and as reviewed below otherwise noncontributory. FAMILY HISTORY: As per history of present illness and as reviewed below ot herwise noncontributory. EXAMINATION OF ORGAN SYSTEMS/BODY AREAS: Constitutional: Blood pressure, HR, RR, Temp General: Morbidly obese gentleman who is in no acute distress Psychiatric: Appropriate mood and affect. Eyes: No scleral icterus or conjunctival erythema ENMT: Moist mucous membranes. No pharyngeal erythema bilateral tympanic membranes without any effusion or erythema. Mild clear nasal drainage. Cardiovascular: Regular, rate, and rhythym. No gallops, murmurs, or rubs. Bilateral upper extremity pulses symmetric and intact. 3+ pitting edema of the bilateral lower extremities. No JVD. Respiratory: Lungs clear to auscultation bilaterally. No wheezes, rales, or rhonchi. Speaking in full sentences. Gastrointestinal: Soft, non-tender, non-distended. Normoactive bowel sounds Genitourinary: No suprapubic tenderness Musculoskeletal: Normal range of motion. Skin: No lesions or abrasions. Neurological: Alert, GCS 15 MEDICAL DECISION MAKING AND COURSE IN THE ED WITH INTERPRETATION/REVIEW OF DIAGNOSTIC STUDIES: This is a 55-year-old male with a past medical history of CHF, COPD and recent coronavirus exposure who comes to the emergency department with 3 days of worsening shortness of breath who is speaking full sentences and saturating well on room air. At this time given his history this could be secondary to pneumonia, coronavirus, CHF exacerbation, ACS. Will obtain a cardiac work-up and obtain coronavirus swab. We will also obtain d-dimer as part of the coronavirus labs. We will provide the patient with 3 to 25 mg of p.o. aspirin. I did review the patient's chart it appears that the patient did have an echocardiogram in January 2018 however I was unable to access it. Per prior notes it appears that the patient does have an AICD the patient is on Lasi x. Twelve-lead EKG interpreted by myself. Sinus tachycardia at a rate of 115 beats per minute. Normal axis. WA interval is 145 ms. QRS duration is of [address] segments are normal without elevations or depressions. No Q waves present. Hypertrophy not noted. There are to wave inversion in lead aVL which is unchanged from prior. No changes demonstrated from prior EKG dated January 02, 2020. Interpretation: Sinus tachycardia Laboratory: CBC reveals a mild leukocytosis of 11.56 with neutrophilic predominance. INR is 1.08. D-dimer is negative. CMP reveals hyponatremia otherwise unremarkable. Troponin was 0.132. BNP is 118. Coronavirus is negative. The radiological images were viewed by myself along with reading the report from the radiologist. Chest x-ray reveals right lower lung opacity otherwise no acute acute cardiopulmonary process. For labs and imaging I did start the patient on ceftriaxone and azithromycin for presumed community-acquired pneumonia. I also contacted Dr. Mosley given the patient was just admitted to Dr. Wong. She stated that she would admit the patient if the troponin did not increase. At this time I did provide the patient with a gentle bolus of 500 cc given the edema on examination concern for CHF. I also sent blood cultures. Repeat troponin was increased at 0.150. Given my prior discussion with Dr. Mosley I did discuss with her that it was increased at 0.150. We had a discussion that we should contact cardiology and if the cardiologists believes that the troponin is secondary to demand ischemia from the pneumonia the patient can be admitted to the hospital here however if they are concerned for cardiac etiology that the patient should be transferred. I did contact Dr. Barrow who agreed with the assessment that the patient's trop onin is likely secondary to demand ischemia. Therefore I contacted Dr. Mosley who accepted the admission. DISPOSITION: Patient was admitted to telemetry in stable condition CONDITION: Serious PROCEDURES: None FINAL IMPRESSION(S)/DIAGNOSES: 1. Acute dyspnea secondary to right lower lobe pneumonia 2. Acute lower extremity edema likely secondary to CHF exacerbation 3. Acute elevated troponin likely secondary to demand ischemia Brain Dodd M.D. chest Pain Score (Numeric/FACES): 5 - Related Data Allergies Allergy/AdvReac Type Severity Reaction Status Date / Time Penicillins Allergy Cannot Verified 07/25/20 00:46 Remember Home Meds: Home Meds Aspirin 81 mg PO DAILY 03/20/17 [History] Furosemide 40 mg PO BID 03/20/17 [History] Lisinopril 10 mg PO BEDTIME 03/20/17 [History] Spironolactone [Aldactone] 25 mg PO DAILY 03/20/17 [History] Tamsulosin [Flomax] 0.4 mg PO DAILY 01/03/20 [History] Albuterol [Ventolin HFA] 1 puff INH ASDIRECTED PRN 07/25/20 [History] Albuterol/Ipratropium [DuoNeb 3.0-0.5 MG/3 ML] 3 ml NEB Q6HRRT PRN 07/25/20 [History] Budesonide/Formoterol Fumarate [Symbicort 160-4.5 Mcg Inhaler] 2 puff INH BID 07/25/20 [History] Past Medical History HEENT History: Reports: Impaired Vision Other HEENT History: wears glasses Cardiovascular History: Reports: CAD, High Cholesterol, Hypertension, Other (See Below) Other Cardiovascular History: rheumatoid fever Respiratory History: Reports: Asthma, Other (See Below) Other Respiratory History: strep throat Gastrointestinal History: Reports: None Other Gastrointestinal History: States he has a haital hernia Genitourinary History: Reports: None Musculoskeletal History: Reports: None Neurological History: Reports: None Psychiatric History: Reports: None Endocrine/Metabolic History: Reports: None Insulin Pump Model and Information Director: N/A Hematologic History: Reports: None Immunologic History: Reports: None Oncologic (Cancer) History: Reports: None Dermatologic History: Reports: None - Infectious Disease History Infectious Disease History: Reports: Chicken Pox, Rheumatic Fever - Past Surgical History Head Surgeries/Procedures: Reports: None GI Surgical History: Reports: Hernia, Inguinal Social & Family History - Family History Family Medical History: Noncontributory - Caffeine Use Caffeine Use: Reports: None Caffeine Use Comment: 1 cup daily ED ROS GENERAL - Review of Systems Review Of Systems: See Below ED EXAM, GENERAL - Physical Exam Exam: See Below Course - Vital Signs Last Recorded V/S: Last Vital Signs Temp 36.9 C 07/25/20 04:00 Pulse 100 07/25/20 04:00 Resp 18 07/25/20 04:00 BP 105/58 L 07/25/20 04:00 Pulse Ox 98 07/25/20 04:00 - Orders/Labs/Meds Orders: Active Orders 24 hr Category Date Time Status Cardiac Monitoring [RC] . DIRECTED Care 07/24/20 19:44 Active Pulse Oximetry [RC] ASDIRECTED Care 07/24/20 19:44 Active CORONAVIRUS COVID-19 PCR PHL Stat Lab 07/24/20 20:27 Received CULTURE BLOOD [BC] Stat Lab 07/24/20 21:25 Received CULTURE BLOOD [BC] Stat Lab 07/24/20 21:35 Received Azithromycin [Zithromax] 500 mg Med 07/24/20 21:15 Active Sodium Chloride 0.9% [Normal Saline (AdvBag)] 250 ml IV ONETIME Sodium Chloride 0.9% [Normal Saline] 500 ml Med 07/24/20 21:30 Active IV .BOLUS Sodium Chloride 0.9% [Saline Flush] Med 07/24/20 19:44 Active 10 ml FLUSH ASDIRECTED PRN Sodium Chloride 0.9% [Saline Flush] Med 07/24/20 19:44 Active 2.5 ml FLUSH ASDIRECTED PRN Blood Culture x2 Reflex Set [OM.PC] Stat Oth 07/24/20 21:04 Ordered Saline Lock Insert [OM.PC] Stat Oth 07/24/20 19:44 Ordered Medication Orders Albuterol/Ipratropium (Duoneb 3.0-0.5 Mg/3 Ml) 3 ml NEB Q4HRRT PRN PRN Reason: Shortness Of Breath/wheezing Azithromycin (Zithromax) 250 mg IV Q24H ERIC Enoxaparin Sodium (Lovenox) 40 mg SUBCUT Q24H ERIC Last Admin: 07/25/20 00:58 Dose: 40 mg Documented by: SUSHANT Azithromycin 500 mg/ Sodium (Chloride) 250 mls @ 250 mls/hr IV ONETIME ERIC Sodium Chloride (Normal Saline) 500 mls @ 499 mls/hr IV .BOLUS [facility] Last Admin: 07/24/20 21:58 Dose: 499 mls/hr Documented by: CATRACHITO Sodium Chloride (Normal Saline) 500 mls @ 499 mls/hr IV .BOLUS [facility] Last Admin: 07/24/20 23:44 Dose: 499 mls/hr Documented by: CATRACHITO Ceftriaxone Sodium/Dextrose 1 (gm/ Premix) 50 mls @ 100 mls/hr IV Q24H ERIC Ondansetron HCl (Zofran) 4 mg IVPUSH Q4H PRN PRN Reason: Nausea/Vomiting Sodium Chloride (Saline Flush) 10 ml FLUSH ASDIRECTED PRN PRN Reason: Keep Vein Open Last Admin: 07/24/20 20:18 Dose: 10 ml Documented by: CATRACHITO Sodium Chloride (Saline Flush) 2.5 ml FLUSH ASDIRECTED PRN PRN Reason: Keep Vein Open Last Admin: 07/24/20 20:19 Dose: 2.5 ml Documented by: CATRACHITO Labs: Laboratory Tests 07/24/20 07/24/20 07/24/20 Range/Units 19:42 19:42 19:42 WBC 11.56 H (4.0-11.0) K/uL RBC 4.68 (4.50-5.90) M/uL Hgb 13.5 (13.0-17.0) g/dL Hct 42.4 (38.0-50.0) % MCV 90.6 (80.0-98.0) fL MCH 28.8 (27.0-32.0) pg MCHC 31.8 (31.0-37.0) g/dL RDW Std Deviation 41.1 (28.0-62.0) fl RDW Coeff of Lynne 12 (11.0-15.0) % Plt Count 254 (150-400) K/uL MPV 9.90 (7.40-12.00) fL Neut % (Auto) 78.2 (48.0-80.0) % Lymph % (Auto) 11.2 L (16.0-40.0) % Surry % (Auto) 9.7 (0.0-15.0) % Eos % (Auto) 0.7 (0.0-7.0) % Baso % (Auto) 0.2 (0.0-1.5) % Neut # (Auto) 9.1 H (1.4-5.7) K/uL Lymph # (Auto) 1.3 (0.6-2.4) K/uL Surry # (Auto) 1.1 H (0.0-0.8) K/uL Eos # (Auto) 0.1 (0.0-0.7) K/uL Baso # (Auto) 0.0 (0.0-0.1) K/uL Nucleated RBC % 0.0 /100WBC Nucleated RBCs # 0 K/uL INR 1.08 D-Dimer, Quantitative 0.41 (0.0-0.50) mg/L FEU Sodium 135 L (136-148) mmol/L Potassium 4.5 (3.5-5.1) mmol/L Chloride 101 (98-107) mmol/L Carbon Dioxide 26.4 (21.0-32.0) mmol/L BUN 15 (7.0-18.0) mg/dL Creatinine 0.8 (0.8-1.3) mg/dL Est Cr Clr Drug Dosing TNP Estimated GFR (MDRD) > 60.0 ml/min Glucose 96 (74-106) mg/dL Calcium 8.6 (8.5-10.1) mg/dL Magnesium 2.1 (1.8-2.4) mg/dL Total Bilirubin 0.7 (0.2-1.0) mg/dL AST 24 (15-37) IU/L ALT 35 (14-63) IU/L Alkaline Phosphatase 62 (46-116) U/L Troponin I 0.132 H* (0.000-0.056) ng/mL B-Natriuretic Peptide (<100) PG/ML Total Protein 7.4 (6.4-8.2) g/dL Albumin 3.5 (3.4-5.0) g/dL Globulin 3.9 (2.6-4.0) g/dL Albumin/Globulin Ratio 0.9 (0.9-1.6) SARS CoV-2 RNA Rapid OMEGA (NEGATIVE) Blood Type Antibody Screen 07/24/20 07/24/20 07/24/20 Range/Units 19:42 20:03 20:10 WBC (4.0-11.0) K/uL RBC (4.50-5.90) M/uL Hgb (13.0-17.0) g/dL Hct (38.0-50.0) % MCV (80.0-98.0) fL MCH (27.0-32.0) pg MCHC (31.0-37.0) g/dL RDW Std Deviation (28.0-62.0) fl RDW Coeff of Lynne (11.0-15.0) % Plt Count (150-400) K/uL MPV (7.40-12.00) fL Neut % (Auto) (48.0-80.0) % Lymph % (Auto) (16.0-40.0) % Surry % (Auto) (0.0-15.0) % Eos % (Auto) (0.0-7.0) % Baso % (Auto) (0.0-1.5) % Neut # (Auto) (1.4-5.7) K/uL Lymph # (Auto) (0.6-2.4) K/uL Surry # (Auto) (0.0-0.8) K/uL Eos # (Auto) (0.0-0.7) K/uL Baso # (Auto) (0.0-0.1) K/uL Nucleated RBC % /100WBC Nucleated RBCs # K/uL INR D-Dimer, Quantitative (0.0-0.50) mg/L FEU Sodium (136-148) mmol/L Potassium (3.5-5.1) mmol/L Chloride (98-107) mmol/L Carbon Dioxide (21.0-32.0) mmol/L BUN (7.0-18.0) mg/dL Creatinine (0.8-1.3) mg/dL Est Cr Clr Drug Dosing Estimated GFR (MDRD) ml/min Glucose (74-106) mg/dL Calcium (8.5-10.1) mg/dL Magnesium (1.8-2.4) mg/dL Total Bilirubin (0.2-1.0) mg/dL AST (15-37) IU/L ALT (14-63) IU/L Alkaline Phosphatase (46-116) U/L Troponin I 0.150 H* (0.000-0.056) ng/mL B-Natriuretic Peptide 118 H (<100) PG/ML Total Protein (6.4-8.2) g/dL Albumin (3.4-5.0) g/dL Globulin (2.6-4.0) g/dL Albumin/Globulin Ratio (0.9-1.6) SARS CoV-2 RNA Rapid OMEGA (NEGATIVE) Blood Type A POSITIVE Antibody Screen NEGATIVE 07/24/20 Range/Units 20:27 WBC (4.0-11.0) K/uL RBC (4.50-5.90) M/uL Hgb (13.0-17.0) g/dL Hct (38.0-50.0) % MCV (80.0-98.0) fL MCH (27.0-32.0) pg MCHC (31.0-37.0) g/dL RDW Std Deviation (28.0-62.0) fl RDW Coeff of Lynne (11.0-15.0) % Plt Count (150-400) K/uL MPV (7.40-12.00) fL Neut % (Auto) (48.0-80.0) % Lymph % (Auto) (16.0-40.0) % Surry % (Auto) (0.0-15.0) % Eos % (Auto) (0.0-7.0) % Baso % (Auto) (0.0-1.5) % Neut # (Auto) (1.4-5.7) K/uL Lymph # (Auto) (0.6-2.4) K/uL Surry # (Auto) (0.0-0.8) K/uL Eos # (Auto) (0.0-0.7) K/uL Baso # (Auto) (0.0-0.1) K/uL Nucleated RBC % /100WBC Nucleated RBCs # K/uL INR D-Dimer, Quantitative (0.0-0.50) mg/L FEU Sodium (136-148) mmol/L Potassium (3.5-5.1) mmol/L Chloride (98-107) mmol/L Carbon Dioxide (21.0-32.0) mmol/L BUN (7.0-18.0) mg/dL Creatinine (0.8-1.3) mg/dL Est Cr Clr Drug Dosing Estimated GFR (MDRD) ml/min Glucose (74-106) mg/dL Calcium (8.5-10.1) mg/dL Magnesium (1.8-2.4) mg/dL Total Bilirubin (0.2-1.0) mg/dL AST (15-37) IU/L ALT (14-63) IU/L Alkaline Phosphatase (46-116) U/L Troponin I (0.000-0.056) ng/mL B-Natriuretic Peptide (<100) PG/ML Total Protein (6.4-8.2) g/dL Albumin (3.4-5.0) g/dL Globulin (2.6-4.0) g/dL Albumin/Globulin Ratio (0.9-1.6) SARS CoV-2 RNA Rapid OMEGA NEGATIVE (NEGATIVE) Blood Type Antibody Screen Meds: Medications Generic Name Dose Route Start Last Admin Trade Name Freq PRN Reason Stop Dose Admin Albuterol/Ipratropium 3 ml 07/24/20 23:57 Duoneb 3.0-0.5 Mg/3 Ml NEB Q4HRRT PRN Shortness Of Breath/wheezing Azithromycin 250 mg 07/25/20 09:00 Zithromax IV Q24H ERIC Enoxaparin Sodium 40 mg 07/24/20 23:45 07/25/20 00:58 Lovenox SUBCUT 40 mg Q24H ERIC Administration Azithromycin 500 mg/ Sodium 250 mls @ 250 mls/hr 07/24/20 21:15 Chloride IV ONETIME ERIC Sodium Chloride 500 mls @ 499 mls/hr 07/24/20 21:30 07/24/20 21:58 Normal Saline IV 499 mls/hr .BOLUS ERIC Administration Sodium Chloride 500 mls @ 499 mls/hr 07/24/20 23:45 07/24/20 23:44 Normal Saline IV 499 mls/hr .BOLUS ERIC Administration Ceftriaxone Sodium/Dextrose 1 50 mls @ 100 mls/hr 07/25/20 09:00 gm/ Premix IV Q24H ERIC Ondansetron HCl 4 mg 07/24/20 23:57 Zofran IVPUSH Q4H PRN Nausea/Vomiting Sodium Chloride 10 ml 07/24/20 19:44 07/24/20 20:18 Saline Flush FLUSH 10 ml ASDIRECTED PRN Administration Keep Vein Open Sodium Chloride 2.5 ml 07/24/20 19:44 07/24/20 20:19 Saline Flush FLUSH 2.5 ml ASDIRECTED PRN Administration Keep Vein Open Discontinued Medications Generic Name Dose Route Start Last Admin Trade Name Freq PRN Reason Stop Dose Admin Aspirin 324 mg 07/24/20 19:44 07/24/20 20:18 Aspirin PO 07/24/20 19:45 324 mg ONETIME ONE Administration Furosemide 20 mg 07/25/20 00:06 07/25/20 00:59 Lasix IVPUSH 07/25/20 00:07 20 mg NOW ONE Administration Ceftriaxone Sodium/Dextrose 1 50 mls @ 100 mls/hr 07/24/20 21:02 07/24/20 22:00 gm/ Premix IV 07/24/20 21:31 100 mls/hr ONETIME ONE Administration Azithromycin 500 mg/ Sodium 250 mls @ 250 mls/hr 07/24/20 23:00 Chloride IV ONETIME ERIC Departure - Departure Time of Disposition: 23:51 Disposition: Admitted As Inpatient 64 Condition: Serious Clinical Impression: Pneumonia Qualifiers: Pneumonia type: due to unspecified organism Laterality: right Lung location: lower lobe of lung Qualified Code(s): J18.9 - Pneumonia, unspecified organism - Discharge Information *PRESCRIPTION DRUG MONITORING PROGRAM REVIEWED*: No *COPY OF PRESCRIPTION DRUG MONITORING REPORT IN PATIENT NADEGE: No Sepsis Event Note (ED) - Focused Exam Vital Signs: Vital Signs Temp Pulse Resp BP Pulse Ox 07/24/20 22:30 102 H 21 H 135/87 96 07/24/20 22:00 108 H 21 H 125/99 H 96 07/24/20 21:30 109 H 21 H 129/75 96 07/24/20 21:00 117 H 22 H 124/82 95 07/24/20 20:00 112 H 22 H 113/68 95 07/24/20 19:34 36.2 C 118 H 23 H 127/79 95 - My Orders Last 24 Hours: My Active Orders 07/24/20 19:44 Cardiac Monitoring [RC] . DIRECTED Pulse Oximetry [RC] ASDIRECTED Sodium Chloride 0.9% [Saline Flush] 10 ml FLUSH ASDIRECTED PRN Sodium Chloride 0.9% [Saline Flush] 2.5 ml FLUSH ASDIRECTED PRN Saline Lock Insert [OM.PC] Stat 07/24/20 20:27 CORONAVIRUS COVID-19 PCR PHL Stat 07/24/20 21:04 Blood Culture x2 Reflex Set [OM.PC] Stat 07/24/20 21:15 Azithromycin [Zithromax] 500 mg Sodium Chloride 0.9% [Normal Saline (AdvBag)] 250 ml IV ONETIME 07/24/20 21:25 CULTURE BLOOD [BC] Stat 07/24/20 21:30 Sodium Chloride 0.9% [Normal Saline] 500 ml IV .BOLUS 07/24/20 21:35 CULTURE BLOOD [BC] Stat - Assessment/Plan Last 24 Hours: My Active Orders 07/24/20 19:44 Cardiac Monitoring [RC] . DIRECTED Pulse Oximetry [RC] ASDIRECTED Sodium Chloride 0.9% [Saline Flush] 10 ml FLUSH ASDIRECTED PRN Sodium Chloride 0.9% [Saline Flush] 2.5 ml FLUSH ASDIRECTED PRN Saline Lock Insert [OM.PC] Stat 07/24/20 20:27 CORONAVIRUS COVID-19 PCR PHL Stat 07/24/20 21:04 Blood Culture x2 Reflex Set [OM.PC] Stat 07/24/20 21:15 Azithromycin [Zithromax] 500 mg Sodium Chloride 0.9% [Normal Saline (AdvBag)] 250 ml IV ONETIME 07/24/20 21:25 CULTURE BLOOD [BC] Stat 07/24/20 21:30 Sodium Chloride 0.9% [Normal Saline] 500 ml IV .BOLUS 07/24/20 21:35 CULTURE BLOOD [BC] Stat
[2020-07-24] MEDS ORDERED: cefTRIAXone 1 GM in Premix Bag 1 BAG IV ONE (21:02)
[2020-07-24] MEDS ORDERED: Azithromycin 500 MG in Sodium Chloride 0.9% 250 ML IV SCH ×2 (21:15→23:00)
[2020-07-24] MEDS ORDERED: Sodium Chloride 0.9% 500 ML IV SCH ×2 (21:30→23:45)
[2020-07-24] MEDS ORDERED: Ondansetron 4 MG/2 ML SDV IVPUSH PRN (23:57)
[2020-07-25] MEDS ORDERED: Furosemide 40 MG/4 ML VIAL IVPUSH ONE (00:06)
[2020-07-25] MEDS: Enoxaparin 40 MG/0.4 ML Syringe SUBCUT SCH (00:58)
[2020-07-25 06:21] LABS: BLOOD UREA NITROGEN,BUN 14 mg/dL (7.0-18.0); CARBON DIOXIDE,CO2 27.6 mmol/L (21.0-32.0); CHLORIDE,CL 100 mmol/L (98-107); GLUCOSE RANDOM 110 mg/dL (74-106); POTASSIUM,K 4.2 mmol/L (3.5-5.1); SODIUM,NA 134 mmol/L (136-148)
[2020-07-25] MEDS ORDERED: cefTRIAXone 1 GM in Premix Bag 1 BAG IV SCH ×2 (09:00→22:00)
[2020-07-25] MEDS ORDERED: FLU Vacc QS2020-21 36MOS UP/PF 60 MCG/0.5 ML Syringe IM ONE (09:00)
[2020-07-25] MEDS ORDERED: Azithromycin 500 MG Vial IV SCH (09:00)
--- NOTE | 2020-07-25 09:35 | PCM.HP.2 ---
H&P History of Present Illness - General Date of Service: 07/25/20 Admit Problem/Dx: Admission Diagnosis/Problem Admission Diagnosis/Problem Pneumonia - History of Present Illness Initial Comments - Free Text/Narative: 54 yo male with pmh of asthma, CHF, s/p pacer/ICD, echo in 2018 reported EF of 30% , COPD/Asthma, HTN, HLD, who comes in to the emergency department with a chief complaint of shortness of breath. The patient states that for approximately 3 days now has been experiencing shortness of breath which has been getting worse. He states that he has had a productive cough associated with sputum. 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 He states that he has had increased frequency of albuterol use. He denies any wheezing. In addition he stated he felt some heart burn 2 days back, no chest pain, syncope, palpitations. He states that he has had some worsening orthopnea but some increased lower extremity edema although he has edema chronically. He does denies any overt chest pain. He denies any recent travel or surgery. He denies any prior history of DVT or PE. Twelve-lead EKG showed Sinus tachycardia at a rate of [address] segments are normal without elevations or depressions. No Q waves present. Hypertrophy not noted. There are to wave inversion in lead aVL which is unchanged from prior. No changes demonstrated from prior EKG dated January 02, 2020. Interpretation: Sinus tachycardia Laboratory: CBC reveals a mild leukocytosis of 11.56 with neutrophilic predominance. INR is 1.08. D-dimer is negative. CMP reveals hyponatremia otherwise unremarkable. Troponin was 0.132. BNP is 118. Coronavirus is negative. Chest x-ray reveals right lower lung opacity otherwise no acute acute ca rdiopulmonary process. patient was started on ceftriaxone and azithromycin for presumed community- acquired pneumonia. Repeat troponin was increased at 0.150, and 0.155. call center supervisor cardiology at [facility] was consulted ( Dr Barrow) , cardiologists believed that the troponin is secondary to demand ischemia from the pneumonia the patient can be admitted to the hospital here however if they are concerned for cardiac etiology, or the next troponin rises 3 times the initial troponin then the patient should be transferred. Given the flat trend patient was admitted for further management of his CAP and CHF. chest Pain Score (Numeric/FACES): 5 - Related Data Allergies/Adverse Reactions: Allergies Allergy/AdvReac Type Severity Reaction Status Date / Time Penicillins Allergy Cannot Verified 07/25/20 00:46 Remember Home Medications: Home Meds Aspirin 81 mg PO DAILY 03/20/17 [History] Furosemide 40 mg PO BID 03/20/17 [History] Lisinopril 10 mg PO BEDTIME 03/20/17 [History] Spironolactone [Aldactone] 25 mg PO DAILY 03/20/17 [History] Tamsulosin [Flomax] 0.4 mg PO DAILY 01/03/20 [History] Albuterol [Ventolin HFA] 1 puff INH ASDIRECTED PRN 07/25/20 [History] Albuterol/Ipratropium [DuoNeb 3.0-0.5 MG/3 ML] 3 ml NEB Q6HRRT PRN 07/25/20 [History] Budesonide/Formoterol Fumarate [Symbicort 160-4.5 Mcg Inhaler] 2 puff INH BID 07/25/20 [History] Past Medical History HEENT History: Reports: Impaired Vision Other HEENT History: wears glasses Cardiovascular History: Reports: CAD, High Cholesterol, Hypertension, Other (See Below) Other Cardiovascular History: rheumatoid fever Respiratory History: Reports: Asthma, Other (See Below) Other Respiratory History: strep throat Gastrointestinal History: Reports: None Other Gastrointestinal History: States he has a haital hernia Genitourinary History: Reports: None Musculoskeletal History: Reports: None Neurological History: Reports: None Psychiatric History: Reports: None Endocrine/Metabolic History: Reports: None Insulin Pump Model and String Cutter: N/A Hematologic History: Reports: None Immunologic History: Reports: None Oncologic (Cancer) History: Reports: None Dermatologic History: Reports: None - Infectious Disease History Infectious Disease History: Reports: Chicken Pox, Rheumatic Fever - Past Surgical History Head Surgeries/Procedures: Reports: None GI Surgical History: Reports: Hernia, Inguinal Social & Family History - Family History Family Medical History: Noncontributory - Tobacco Use Smoking Status *Q: Never Smoker Second Hand Smoke Exposure: No - Caffeine Use Caffeine Use: Reports: None Caffeine Use Comment: 1 cup daily - Recreational Drug Use Recreational Drug Use: No H&P Review of Systems - Review of Systems: Review Of Systems: See Below General: Reports: Weakness, Fatigue. Denies: Chills, Malaise, Night Sweats Pulmonary: Reports: Shortness of Breath, Cough, Sputum. Denies: Wheezing, Pl euritic Chest Pain, Hemoptysis Cardiovascular: Reports: Dyspnea on Exertion, Orthopnea, Edema. Denies: Chest Pain, Palpitations, Lightheadedness, Syncope Gastrointestinal: Reports: Distension. Denies: Abdominal Pain, Anorexia, Diarrhea, Decreased Appetite, Nausea, Vomiting Genitourinary: Denies: Dysuria, Frequency, Burning Musculoskeletal: Denies: Neck Pain, Shoulder Pain, Arm Pain Skin: Denies: Cyanosis, Jaundice, Mottled, Pallor Psychiatric: Denies: Confusion, Depression, Mood Lability Neurological: Reports: Headache. Denies: Confusion, Dizziness, Numbness, Paresthesia Exam - Exam Exam: See Below - Vital Signs Vital Signs: Last Vital Signs Temp 36.9 C 07/25/20 04:00 Pulse 100 07/25/20 04:00 Resp 18 07/25/20 04:00 BP 105/58 L 07/25/20 04:00 Pulse Ox 98 07/25/20 04:00 Weight: 122 kg - Exam Quality Assessment: No: Supplemental Oxygen General: Alert, Oriented HEENT: Conjunctiva Clear Neck: Supple, Trachea Midline Lungs: Normal Respiratory Effort, Decreased Breath Sounds, Rales. No: Wheezing Cardiovascular: Normal S1, Normal S2, Tachycardia GI/Abdominal Exam: Normal Bowel Sounds, Soft, Non-Tender, Distended. No: No Distention, Guarding, Rigid, Tender, Hepatomegaly, Splenomegaly - Patient Data Lab Results Last 24 hrs: Laboratory Results - last 24 hr 07/24/20 07/24/20 07/24/20 Range/Units 19:42 19:42 19:42 WBC 11.56 H (4.0-11.0) K/uL RBC 4.68 (4.50-5.90) M/uL Hgb 13.5 (13.0-17.0) g/dL Hct 42.4 (38.0-50.0) % MCV 90.6 (80.0-98.0) fL MCH 28.8 (27.0-32.0) pg MCHC 31.8 (31.0-37.0) g/dL RDW Std Deviation 41.1 (28.0-62.0) fl RDW Coeff of Lynne 12 (11.0-15.0) % Plt Count 254 (150-400) K/uL MPV 9.90 (7.40-12.00) fL Neut % (Auto) 78.2 (48.0-80.0) % Lymph % (Auto) 11.2 L (16.0-40.0) % Glasscock % (Auto) 9.7 (0.0-15.0) % Eos % (Auto) 0.7 (0.0-7.0) % Baso % (Auto) 0.2 (0.0-1.5) % Neut # (Auto) 9.1 H (1.4-5.7) K/uL Lymph # (Auto) 1.3 (0.6-2.4) K/uL Glasscock # (Auto) 1.1 H (0.0-0.8) K/uL Eos # (Auto) 0.1 (0.0-0.7) K/uL Baso # (Auto) 0.0 (0.0-0.1) K/uL Nucleated RBC % 0.0 /100WBC Nucleated RBCs # 0 K/uL INR 1.08 D-Dimer, Quantitative 0.41 (0.0-0.50) mg/L FEU Sodium 135 L (136-148) mmol/L Potassium 4.5 (3.5-5.1) mmol/L Chloride 101 (98-107) mmol/L Carbon Dioxide 26.4 (21.0-32.0) mmol/L BUN 15 (7.0-18.0) mg/dL Creatinine 0.8 (0.8-1.3) mg/dL Est Cr Clr Drug Dosing TNP Estimated GFR (MDRD) > 60.0 ml/min Glucose 96 (74-106) mg/dL Calcium 8.6 (8.5-10.1) mg/dL Phosphorus (2.6-4.7) mg/dL Magnesium 2.1 (1.8-2.4) mg/dL Total Bilirubin 0.7 (0.2-1.0) mg/dL AST 24 (15-37) IU/L ALT 35 (14-63) IU/L Alkaline Phosphatase 62 (46-116) U/L Troponin I 0.132 H* (0.000-0.056) ng/mL B-Natriuretic Peptide (<100) PG/ML Total Protein 7.4 (6.4-8.2) g/dL Albumin 3.5 (3.4-5.0) g/dL Globulin 3.9 (2.6-4.0) g/dL Albumin/Globulin Ratio 0.9 (0.9-1.6) SARS CoV-2 RNA Rapid OMEGA (NEGATIVE) Blood Type Antibody Screen 07/24/20 07/24/20 07/24/20 Range/Units 19:42 20:03 20:10 WBC (4.0-11.0) K/uL RBC (4.50-5.90) M/uL Hgb (13.0-17.0) g/dL Hct (38.0-50.0) % MCV (80.0-98.0) fL MCH (27.0-32.0) pg MCHC (31.0-37.0) g/dL RDW Std Deviation (28.0-62.0) fl RDW Coeff of Lynne (11.0-15.0) % Plt Count (150-400) K/uL MPV (7.40-12.00) fL Neut % (Auto) (48.0-80.0) % Lymph % (Auto) (16.0-40.0) % Glasscock % (Auto) (0.0-15.0) % Eos % (Auto) (0.0-7.0) % Baso % (Auto) (0.0-1.5) % Neut # (Auto) (1.4-5.7) K/uL Lymph # (Auto) (0.6-2.4) K/uL Glasscock # (Auto) (0.0-0.8) K/uL Eos # (Auto) (0.0-0.7) K/uL Baso # (Auto) (0.0-0.1) K/uL Nucleated RBC % /100WBC Nucleated RBCs # K/uL INR D-Dimer, Quantitative (0.0-0.50) mg/L FEU Sodium (136-148) mmol/L Potassium (3.5-5.1) mmol/L Chloride (98-107) mmol/L Carbon Dioxide (21.0-32.0) mmol/L BUN (7.0-18.0) mg/dL Creatinine (0.8-1.3) mg/dL Est Cr Clr Drug Dosing Estimated GFR (MDRD) ml/min Glucose (74-106) mg/dL Calcium (8.5-10.1) mg/dL Phosphorus (2.6-4.7) mg/dL Magnesium (1.8-2.4) mg/dL Total Bilirubin (0.2-1.0) mg/dL AST (15-37) IU/L ALT (14-63) IU/L Alkaline Phosphatase (46-116) U/L Troponin I 0.150 H* (0.000-0.056) ng/mL B-Natriuretic Peptide 118 H (<100) PG/ML Total Protein (6.4-8.2) g/dL Albumin (3.4-5.0) g/dL Globulin (2.6-4.0) g/dL Albumin/Globulin Ratio (0.9-1.6) SARS CoV-2 RNA Rapid OMEGA (NEGATIVE) Blood Type A POSITIVE Antibody Screen NEGATIVE 07/24/20 07/25/20 07/25/20 Range/Units 20:27 00:10 05:48 WBC 11.69 H (4.0-11.0) K/uL RBC 4.32 L (4.50-5.90) M/uL Hgb 12.5 L (13.0-17.0) g/dL Hct 39.6 (38.0-50.0) % MCV 91.7 (80.0-98.0) fL MCH 28.9 (27.0-32.0) pg MCHC 31.6 (31.0-37.0) g/dL RDW Std Deviation 41.7 (28.0-62.0) fl RDW Coeff of Lynne 12 (11.0-15.0) % Plt Count 261 (150-400) K/uL MPV 10.10 (7.40-12.00) fL Neut % (Auto) 81.6 H (48.0-80.0) % Lymph % (Auto) 9.8 L (16.0-40.0) % Glasscock % (Auto) 7.7 (0.0-15.0) % Eos % (Auto) 0.6 (0.0-7.0) % Baso % (Auto) 0.3 (0.0-1.5) % Neut # (Auto) 9.5 H (1.4-5.7) K/uL Lymph # (Auto) 1.1 (0.6-2.4) K/uL Glasscock # (Auto) 0.9 H (0.0-0.8) K/uL Eos # (Auto) 0.1 (0.0-0.7) K/uL Baso # (Auto) 0.0 (0.0-0.1) K/uL Nucleated RBC % 0.0 /100WBC Nucleated RBCs # 0 K/uL INR D-Dimer, Quantitative (0.0-0.50) mg/L FEU Sodium (136-148) mmol/L Potassium (3.5-5.1) mmol/L Chloride (98-107) mmol/L Carbon Dioxide (21.0-32.0) mmol/L BUN (7.0-18.0) mg/dL Creatinine (0.8-1.3) mg/dL Est Cr Clr Drug Dosing Estimated GFR (MDRD) ml/min Glucose (74-106) mg/dL Calcium (8.5-10.1) mg/dL Phosphorus (2.6-4.7) mg/dL Magnesium (1.8-2.4) mg/dL Total Bilirubin (0.2-1.0) mg/dL AST (15-37) IU/L ALT (14-63) IU/L Alkaline Phosphatase (46-116) U/L Troponin I 0.155 H* (0.000-0.056) ng/mL B-Natriuretic Peptide (<100) PG/ML Total Protein (6.4-8.2) g/dL Albumin (3.4-5.0) g/dL Globulin (2.6-4.0) g/dL Albumin/Globulin Ratio (0.9-1.6) SARS CoV-2 RNA Rapid OMEGA NEGATIVE (NEGATIVE) Blood Type Antibody Screen 07/25/20 Range/Units 05:48 WBC (4.0-11.0) K/uL RBC (4.50-5.90) M/uL Hgb (13.0-17.0) g/dL Hct (38.0-50.0) % MCV (80.0-98.0) fL MCH (27.0-32.0) pg MCHC (31.0-37.0) g/dL RDW Std Deviation (28.0-62.0) fl RDW Coeff of Lynne (11.0-15.0) % Plt Count (150-400) K/uL MPV (7.40-12.00) fL Neut % (Auto) (48.0-80.0) % Lymph % (Auto) (16.0-40.0) % Glasscock % (Auto) (0.0-15.0) % Eos % (Auto) (0.0-7.0) % Baso % (Auto) (0.0-1.5) % Neut # (Auto) (1.4-5.7) K/uL Lymph # (Auto) (0.6-2.4) K/uL Glasscock # (Auto) (0.0-0.8) K/uL Eos # (Auto) (0.0-0.7) K/uL Baso # (Auto) (0.0-0.1) K/uL Nucleated RBC % /100WBC Nucleated RBCs # K/uL INR D-Dimer, Quantitative (0.0-0.50) mg/L FEU Sodium 134 L (136-148) mmol/L Potassium 4.2 (3.5-5.1) mmol/L Chloride 100 (98-107) mmol/L Carbon Dioxide 27.6 (21.0-32.0) mmol/L BUN 14 (7.0-18.0) mg/dL Creatinine 0.6 L (0.8-1.3) mg/dL Est Cr Clr Drug Dosing 122.58 Estimated GFR (MDRD) > 60.0 ml/min Glucose 110 H (74-106) mg/dL Calcium 8.6 (8.5-10.1) mg/dL Phosphorus 3.3 (2.6-4.7) mg/dL Magnesium 2.0 (1.8-2.4) mg/dL Total Bilirubin (0.2-1.0) mg/dL AST (15-37) IU/L ALT (14-63) IU/L Alkaline Phosphatase (46-116) U/L Troponin I (0.000-0.056) ng/mL B-Natriuretic Peptide (<100) PG/ML Total Protein (6.4-8.2) g/dL Albumin (3.4-5.0) g/dL Globulin (2.6-4.0) g/dL Albumin/Globulin Ratio (0.9-1.6) SARS CoV-2 RNA Rapid OMEGA (NEGATIVE) Blood Type Antibody Screen Result Diagrams: 07/25/20 05:48 07/25/20 05:48 Sepsis Event Note - Evaluation Sepsis Screening Result: No Definite Risk - Focused Exam Vital Signs: Vital Signs Temp Pulse Resp BP Pulse Ox Pulse Ox 07/25/20 04:00 36.9 C 100 18 105/58 L 98 07/25/20 00:35 36.4 C 113 H 20 141/75 H 97 07/25/20 00:34 97 07/24/20 23:46 108 H 18 107/53 L 95 07/24/20 22:30 102 H 21 H 135/87 96 07/24/20 22:00 108 H 21 H 125/99 H 96 - Problem List (1) Community acquired pneumonia SNOMED Code(s): 294559357 ICD Code: J18.9 - PNEUMONIA, UNSPECIFIED ORGANISM Status: Acute Current Visit: Yes (2) CHF exacerbation SNOMED Code(s): 930831458, 02944189391882 ICD Code: I50.9 - HEART FAILURE, UNSPECIFIED Status: Acute Current Visit: Yes (3) HTN (hypertension) SNOMED Code(s): 56538424 ICD Code: I10 - ESSENTIAL (PRIMARY) HYPERTENSION Status: Acute Current Visit: Yes Problem List Initiated/Reviewed/Updated: Yes Orders Last 24hrs: Active Orders 24 hr Category Date Time Status Admission Status [Patient Status] [ADT] Stat ADT 07/24/20 23:30 Active Ambulate [RC] ASDIRECTED Care 07/24/20 23:57 Active Cardiac Monitoring [RC] . DIRECTED Care 07/24/20 19:44 Active Influenza Vaccine Charge [RC] .DISCHARGE Care 07/25/20 06:20 Active Oxygen Therapy [RC] PRN Care 07/24/20 23:57 Active Pulse Oximetry [RC] ASDIRECTED Care 07/24/20 19:44 Active RT Aerosol Therapy [RC] ASDIRECTED Care 07/25/20 00:01 Active Telemetry Monitoring [Cardiac Monitoring] [RC] Q8H Care 07/24/20 23:49 Active VTE/DVT Education [RC] PER UNIT ROUTINE Care 07/24/20 23:57 Active Vital Signs [RC] Q4H Care 07/24/20 23:57 Active CORONAVIRUS COVID-19 PCR PHL Stat Lab 07/24/20 20:27 Received CULTURE BLOOD [BC] Stat Lab 07/24/20 21:25 Received CULTURE BLOOD [BC] Stat Lab 07/24/20 21:35 Received UA W/CECELIA RFLX IF INDICATED [URIN] Routine Lab 07/25/20 09:35 Ordered Albuterol/Ipratropium [DuoNeb 3.0-0.5 MG/3 ML] Med 07/24/20 23:57 Active 3 ml NEB Q4HRRT PRN Azithromycin [Zithromax] 500 mg Med 07/25/20 21:00 Active Sodium Chloride 0.9% [Normal Saline (AdvBag)] 250 ml IV Q24H Enoxaparin [Lovenox] Med 07/24/20 23:45 Active 40 mg SUBCUT Q24H Ondansetron [Zofran] Med 07/24/20 23:57 Active 4 mg IVPUSH Q4H PRN Sodium Chloride 0.9% [Normal Saline] 500 ml Med 07/24/20 21:30 Active IV .BOLUS Sodium Chloride 0.9% [Normal Saline] 500 ml Med 07/24/20 23:45 Active IV .BOLUS Sodium Chloride 0.9% [Saline Flush] Med 07/24/20 19:44 Active 10 ml FLUSH ASDIRECTED PRN Sodium Chloride 0.9% [Saline Flush] Med 07/24/20 19:44 Active 2.5 ml FLUSH ASDIRECTED PRN cefTRIAXone [Rocephin in Dextrose,Iso-Osm 1 GM/50 ML] 1 Med 07/25/20 22:00 Active gm Premix Bag 1 bag IV Q24H Blood Culture x2 Reflex Set [OM.PC] Stat Oth 07/24/20 21:04 Ordered Saline Lock Insert [OM.PC] Stat Oth 07/24/20 19:44 Ordered Medication Orders Albuterol/Ipratropium (Duoneb 3.0-0.5 Mg/3 Ml) 3 ml NEB Q4HRRT PRN PRN Reason: Shortness Of Breath/wheezing Enoxaparin Sodium (Lovenox) 40 mg SUBCUT Q24H ERIC Last Admin: 07/25/20 00:58 Dose: 40 mg Documented by: SUSHANT Sodium Chloride (Normal Saline) 500 mls @ 499 mls/hr IV .BOLUS ERIC Last Admin: 07/24/20 21:58 Dose: 499 mls/hr Documented by: CATRACHITO Sodium Chloride (Normal Saline) 500 mls @ 499 mls/hr IV .BOLUS ERIC Last Admin: 07/24/20 23:44 Dose: 499 mls/hr Documented by: CATRACHITO Azithromycin 500 mg/ Sodium (Chloride) 250 mls @ 250 mls/hr IV Q24H ERIC Ceftriaxone Sodium/Dextrose 1 (gm/ Premix) 50 mls @ 100 mls/hr IV Q24H ERIC Ondansetron HCl (Zofran) 4 mg IVPUSH Q4H PRN PRN Reason: Nausea/Vomiting Sodium Chloride (Saline Flush) 10 ml FLUSH ASDIRECTED PRN PRN Reason: Keep Vein Open Last Admin: 07/24/20 20:18 Dose: 10 ml Documented by: CATRACHITO Sodium Chloride (Saline Flush) 2.5 ml FLUSH ASDIRECTED PRN PRN Reason: Keep Vein Open Last Admin: 07/24/20 20:19 Dose: 2.5 ml Documented by: CATRACHITO Assessment/Plan Comment:: Patient is a 55 y/o M admitted for CAP, CHF exacerbation Will start IV Rocephin and azithromycin DuoNebs as needed BP soft hold off n antihypertensives Start IV Lasix 20mg BID, Bp is soft, with HR in low 100s, so will diurese with caution troponin trended flat, as per cardiology at [facility], type 2 leak, no active chest pain f/u on blood cultures Monitor and replete electrolytes
[2020-07-25] MEDS: Albuterol/Ipratropium 3.0-0.5 MG/3 ML Neb Soln NEB PRN ×2 (09:54→18:19)
[2020-07-25] MEDS ORDERED: Acetaminophen 500 MG Tab PO PRN (12:16)
[2020-07-25] MEDS: Furosemide 20 MG/2 ML VIAL IVPUSH SCH (20:40)
[2020-07-25] MEDS ORDERED: Azithromycin 500 MG in Sodium Chloride 0.9% 250 ML IV SCH (21:00)
[2020-07-25] MEDS: Budesonide/Formoterol 160-4.5 MCG/Puff 6 GM Inhaler INH SCH (22:10)
[2020-07-26] MEDS: Enoxaparin 40 MG/0.4 ML Syringe SUBCUT SCH (02:19)
[2020-07-26 06:27] LABS: BLOOD UREA NITROGEN,BUN 15 mg/dL (7.0-18.0); CARBON DIOXIDE,CO2 27.3 mmol/L (21.0-32.0); CHLORIDE,CL 102 mmol/L (98-107); GLUCOSE RANDOM 103 mg/dL (74-106); POTASSIUM,K 3.8 mmol/L (3.5-5.1); SODIUM,NA 137 mmol/L (136-148)
[2020-07-26] MEDS ORDERED: Aspirin 81 MG Tab.Chew PO SCH (09:00)
[2020-07-26] MEDS: Budesonide/Formoterol 160-4.5 MCG/Puff 6 GM Inhaler INH SCH (09:39)
[2020-07-26] MEDS: Furosemide 20 MG/2 ML VIAL IVPUSH SCH (10:05)
[2020-07-26] MEDS: Furosemide 40 MG/4 ML VIAL IVPUSH SCH ×2 (10:26→14:19)
[2020-07-26] MEDS ORDERED: Levofloxacin 250 MG Tab PO ONE (14:58)
--- NOTE | 2020-07-26 15:05 | PCM.DCSUM1 ---
Discharge Summary - Hospital Course Brief History: 54 yo male with pmh of asthma, CHF, s/p pacer/ICD, echo in 2018 reported EF of 30% , COPD/Asthma, HTN, HLD, who comes in to the emergency department with a chief complaint of shortness of breath. The patient states that for approximately 3 days now has been experiencing shortness of breath which has been getting worse. He states that he has had a productive cough associated with sputum. 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 He states that he has had increased frequency of albuterol use. He denies any wheezing. In addition he stated he felt some heart burn 2 days back, no chest pain, syncope, palpitations. He states that he has had some worsening orthopnea but some increased lower extremity edema although he has edema chronically. He does denies any overt chest pain. He denies any recent travel or surgery. He denies any prior history of DVT or PE. Twelve-lead EKG showed Sinus tachycardia at a rate of [address] segments are normal without elevations or dep ressions. No Q waves present. Hypertrophy not noted. There are to wave inversion in lead aVL which is unchanged from prior. No changes demonstrated from prior EKG dated January 02, 2020. Interpretation: Sinus tachycardia. Laboratory: CBC reveals a mild leukocytosis of 11.56 with neutrophilic predominance. INR is 1.08. D-dimer is negative. CMP reveals hyponatremia otherwise unremarkable. Troponin was 0.132. BNP is 118. Coronavirus is negative. Chest x-ray reveals right lower lung opacity otherwise no acute acute cardiopulmonary process. patient was started on ceftriaxone and azithromycin for presumed community-acquired pneumonia. Repeat troponin was increased at 0.150, and 0.155. call center associate cardiology at [place] was consulted ( Dr Barrow) , cardiologists believed that the troponin is secondary to demand ischemia from the pneumonia the patient can be admitted to the hospital here however if they are concerned for cardiac etiology, or the next troponin rises 3 times the initial troponin then the patient should be transferred. Given the flat trend patient was admitted for further management of his CAP and CHF. - Discharge Data Discharge Date: 07/26/20 Discharge Disposition: Home, Self-Care 01 Condition: Good - Referral to Home Health Primary Care Physician: Yimi Rodriguez MD - Patient Summary/Data Hospital Course: Admitting Diagnoses: Acute systolic heart failure CAP Discharge Diagnoses: Acute systolic heart failure CAP Other PMH: COPD/Asthma HTN HLD Pacer/ICD This 54-year-old male was admitted with CHF exacerbation and CAP. For CAP he was treated with azithromycin and Rocephin. Blood pressures were slightly soft on admission so Lasix 20 mg IV twice daily was started to help with diuresis. Echo was obtained. Previous EF showed 30%. He has been following up closely with Dr. Redding in cardiology. He is not on a beta-reji as he is unable to tolerate these and was not able to tolerate amiodarone as well. Today he is feeling improved less shortness of breath and less orthopnea. Lasix dose was increased today to 40 mg IV twice daily which she received 2 doses. This afternoon he is asking for discharge as he left his cat at home without food. He is not having any chest pain and shortness of breath is significantly improved. He remains on room air. 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 Redding to augment his Lasix dosage to help with further diuresis at home. He was educated on fluid restriction at home as well as following low-sodium diet and keeping compression stockings on during the day. He was also encouraged to keep legs elevated to help with peripheral edema. He was encouraged to return to the ER or clinic if shortness of breath or peripheral edema worsen. He verbalized understanding. - Patient Instructions Diet: Heart Healthy Diet, Low Sodium, Fluid Restriction Fluid Restriction: 1500 mL Activity: As Tolerated, No Strenuous Activities Showering/Bathing: May Shower Notify Provider of: Fever, Increased Pain, Swelling and Redness, Drainage, Nausea and/or Vomiting Other/Special Instructions: weigh yourself daily, keep records. If increase by 3-5 lbs in 2-[address] Junior, may need to increase Lasix or take Metolazone. wear compression stockings during the day and off at bed time to help with swelling. Keep legs elevated as possible. - Discharge Plan *PRESCRIPTION DRUG MONITORING PROGRAM REVIEWED*: No *COPY OF PRESCRIPTION DRUG MONITORING REPORT IN PATIENT NADEGE: No Prescriptions/Med Rec: levoFLOXacin [Levaquin] 750 mg PO DAILY #3 tab Home Medications: Home Meds Aspirin 81 mg PO DAILY 03/20/17 [History] Furosemide 40 mg PO BID 03/20/17 [History] Lisinopril 10 mg PO BEDTIME 03/20/17 [History] Spironolactone [Aldactone] 25 mg PO DAILY 03/20/17 [History] Tamsulosin [Flomax] 0.4 mg PO DAILY 01/03/20 [History] Albuterol [Ventolin HFA] 1 puff INH ASDIRECTED PRN 07/25/20 [History] Albuterol/Ipratropium [DuoNeb 3.0-0.5 MG/3 ML] 3 ml NEB Q6HRRT PRN 07/25/20 [History] Budesonide/Formoterol Fumarate [Symbicort 160-4.5 Mcg Inhaler] 2 puff INH BID 07/25/20 [History] levoFLOXacin [Levaquin] 750 mg PO DAILY #3 tab 07/26/20 [Rx] metOLazone [Metolazone] 2.5 mg PO Q48H PRN 07/26/20 [History] Oxygen Therapy Mode: Room Air Patient Handouts: Heart Failure, Self Care, Living With Heart Failure, Community-Acquired Pneumonia, Adult, [id number] Referrals: Cosme Junior MD [Physician] - 08/02/20 10:00 am (Please arrive 15mins early, bring your ID, insurance information and mask during your appointment. Thanks) Yimi Rodriguez MD [Primary Care Provider] - 08/02/20 8:00 am - Discharge Summary/Plan Comment DC Time >30 min.: No - Patient Data Vitals - Most Recent: Last Vital Signs Temp 97.6 F 07/26/20 12:00 Pulse 95 07/26/20 12:00 Resp 20 07/26/20 12:00 BP 122/67 07/26/20 12:00 Pulse Ox 93 L 07/26/20 12:00 Weight - Most Recent: 120.7 kg I&O - Last 24 hours: Intake & Output 07/26/20 07/26/20 07/26/20 06:59 14:59 22:59 Intake Total 750 Output Total 1100 Balance -350 Lab Results - Last 24 hrs: Laboratory Results - last 24 hr 07/26/20 07/26/20 Range/Units 05:40 05:40 WBC 9.02 (4.0-11.0) K/uL RBC 4.25 L (4.50-5.90) M/uL Hgb 12.3 L (13.0-17.0) g/dL Hct 38.8 (38.0-50.0) % MCV 91.3 (80.0-98.0) fL MCH 28.9 (27.0-32.0) pg MCHC 31.7 (31.0-37.0) g/dL RDW Std Deviation 41.8 (28.0-62.0) fl RDW Coeff of Lynne 12 (11.0-15.0) % Plt Count 265 (150-400) K/uL MPV 10.10 (7.40-12.00) fL Neut % (Auto) 77.0 (48.0-80.0) % Lymph % (Auto) 12.7 L (16.0-40.0) % [place] % (Auto) 9.0 (0.0-15.0) % Eos % (Auto) 1.0 (0.0-7.0) % Baso % (Auto) 0.3 (0.0-1.5) % Neut # (Auto) 6.9 H (1.4-5.7) K/uL Lymph # (Auto) 1.2 (0.6-2.4) K/uL [place] # (Auto) 0.8 (0.0-0.8) K/uL Eos # (Auto) 0.1 (0.0-0.7) K/uL Baso # (Auto) 0.0 (0.0-0.1) K/uL Nucleated RBC % 0.0 /100WBC Nucleated RBCs # 0 K/uL Sodium 137 (136-148) mmol/L Potassium 3.8 (3.5-5.1) mmol/L Chloride 102 (98-107) mmol/L Carbon Dioxide 27.3 (21.0-32.0) mmol/L BUN 15 (7.0-18.0) mg/dL Creatinine 0.7 L (0.8-1.3) mg/dL Est Cr Clr Drug Dosing 105.07 mL/min Estimated GFR (MDRD) > 60.0 ml/min Glucose 103 (74-106) mg/dL Calcium 8.7 (8.5-10.1) mg/dL Phosphorus 4.7 (2.6-4.7) mg/dL Magnesium 2.0 (1.8-2.4) mg/dL CECELIA Results - Last 24 hrs: Microbiology 07/24/20 21:35 Aerobic Blood Culture - Preliminary Blood - Venous - Lab Draw NO GROWTH AFTER 1 DAY Anaerobic Blood Culture - Preliminary NO GROWTH AFTER 1 DAY 07/24/20 21:25 Aerobic Blood Culture - Preliminary Blood - Venous NO GROWTH AFTER 1 DAY Anaerobic Blood Culture - Preliminary NO GROWTH AFTER 1 DAY Med Orders - Current: Current Medications Acetaminophen (Tylenol Extra Strength) 500 mg PO Q6H PRN PRN Reason: Pain Last Admin: 07/25/20 12:32 Dose: 500 mg Documented by: Albuterol/Ipratropium (Duoneb 3.0-0.5 Mg/3 Ml) 3 ml NEB Q4HRRT PRN PRN Reason: Shortness Of Breath/wheezing Last Admin: 07/25/20 18:19 Dose: 3 ml Documented by: Aspirin (Aspirin) 81 mg PO DAILY [facility] Last Admin: 07/26/20 10:04 Dose: 81 mg Documented by: Enoxaparin Sodium (Lovenox) 40 mg SUBCUT Q24H [facility] Last Admin: 07/26/20 02:19 Dose: 40 mg Documented by: Furosemide (Lasix) 40 mg IVPUSH BIDDIURETIC [facility] Last Admin: 07/26/20 14:19 Dose: 40 mg Documented by: Sodium Chloride (Normal Saline) 500 mls @ 499 mls/hr IV .BOLUS [facility] Last Admin: 07/24/20 21:58 Dose: 499 mls/hr Documented by: Sodium Chloride (Normal Saline) 500 mls @ 499 mls/hr IV .BOLUS [facility] Last Admin: 07/24/20 23:44 Dose: 499 mls/hr Documented by: Azithromycin 500 mg/ Sodium (Chloride) 250 mls @ 250 mls/hr IV Q24H [facility] Last Admin: 07/25/20 20:46 Dose: 250 mls/hr Documented by: Ceftriaxone Sodium/Dextrose 1 (gm/ Premix) 50 mls @ 100 mls/hr IV Q24H [facility] Last Admin: 07/25/20 22:10 Dose: 100 mls/hr Documented by: Levofloxacin (Levaquin) 750 mg PO ONETIME ONE Stop: 10/05/20 14:59 Ondansetron HCl (Zofran) 4 mg IVPUSH Q4H PRN PRN Reason: Nausea/Vomiting Budesonide/Formoterol 160-4.5 Mcg/Puff 6 Gm Inhaler 2 each INH BID [facility] Last Admin: 07/26/20 09:39 Dose: 2 each Documented by: Sodium Chloride (Saline Flush) 10 ml FLUSH ASDIRECTED PRN PRN Reason: Keep Vein Open Last Admin: 07/24/20 20:18 Dose: 10 ml Documented by: Sodium Chloride (Saline Flush) 2.5 ml FLUSH ASDIRECTED PRN PRN Reason: Keep Vein Open Last Admin: 07/24/20 20:19 Dose: 2.5 ml Documented by: Discontinued Medications Aspirin (Aspirin) 324 mg PO ONETIME ONE Stop: 07/24/20 19:45 Last Admin: 07/24/20 20:18 Dose: 324 mg Documented by: Furosemide (Lasix) 20 mg IVPUSH NOW ONE Stop: 07/25/20 00:07 Last Admin: 07/25/20 00:59 Dose: 20 mg Documented by: Furosemide (Lasix) 20 mg IVPUSH BID [facility] Last Admin: 07/26/20 10:05 Dose: Not Given Documented by: Ceftriaxone Sodium/Dextrose 1 (gm/ Premix) 50 mls @ 100 mls/hr IV ONETIME ONE Stop: 07/24/20 21:31 Last Admin: 07/24/20 22:00 Dose: 100 mls/hr Documented by: Azithromycin 500 mg/ Sodium (Chloride) 250 mls @ 250 mls/hr IV ONETIME [facility] Azithromycin 500 mg/ Sodium (Chloride) 250 mls @ 250 mls/hr IV ONETIME [facility] Influenza Virus Vaccine (Afluria Quad 2020-21 (3yr Up)) 60 mcg IM .ONCE ONE Stop: 07/25/20 09:01
[2020-07-26 15:39] VITALS: BP 102/57; PULSE 98
[2020-07-26] MEDS ORDERED: FLU Vacc QS2020-21 36MOS UP/PF 60 MCG/0.5 ML Syringe IM ONE (16:00)
[2020-07-26] MEDS ORDERED: FLU VACC QS2020-21(6MOS UP)/PF 60 MCG/0.5 ML SYRINGE IM ONE (16:00)
--- NOTE | 2020-07-27 17:22 | ECHO ---
EXAM DATE: 07/24/20 PATIENT'S AGE: 55 The ECHO report has been scanned into [employer] and can be seen in this patient's EMR (Electronic Medical Record) under the REPORTS section. The report has also been scanned into PACS. DOUGLAS
== END 2020-07-26 16:30 | disposition home or self-care (01) | DRG 291 ==
LOC: MW.ED 19:32 → MW.MS 23:30
PROVIDERS: ADMIT Student in an Organized Health Care Education/Training Program; ATTEND Student in an Organized Health Care Education/Training Program
DX: I11.0 Hypertensive heart disease with heart failure (principal); J18.9 Pneumonia, unspecified organism; I50.21 Acute systolic (congestive) heart failure; I24.8 Other forms of acute ischemic heart disease; J44.9 Chronic obstructive pulmonary disease, unspecified; E78.5 Hyperlipidemia, unspecified; Z20.828 Contact with and (suspected) exposure to other viral communicable diseases; H54.7 Unspecified visual loss; I25.10 Atherosclerotic heart disease of native coronary artery without angina pectoris; K44.9 Diaphragmatic hernia without obstruction or gangrene; Z95.0 Presence of cardiac pacemaker; Z79.82 Long term (current) use of aspirin; Z79.899 Other long term (current) drug therapy
CPT/HCPCS: 36415; 71045; 71045-26; 80048; 80053; 81003; 83735; 83880; 84100; 84484; 85025; 85379; 85610; 86850; 86900; 86901; 87040; 90686; 93005; 93010; 93306; 94640; 94664; 96365; 99221; 99238; 99283; 99285-25; A9270-GY; G0008; J0456; J0696; J1650; J1940; J7040; J7050; J7620-GY; U0002

== ENCOUNTER 2020-08-18 13:09 | Emergency (ER) | payer OTHER ==
[2020-08-18] MEDS ORDERED: Sodium Chloride 0.9% 1,000 ML IV ONE (13:34)
[2020-08-18] MEDS ORDERED: Sodium Chloride 0.9% 2.5 ML Syringe FLUSH PRN (13:34)
[2020-08-18] MEDS ORDERED: Sodium Chloride 0.9% 10 ML Syringe FLUSH PRN (13:34)
[2020-08-18] MEDS ORDERED: Aspirin 81 MG Tab.Chew PO ONE (13:34)
--- NOTE | 2020-08-18 13:43 | EDM.PDOC ---
ED HPI GENERAL MEDICAL PROBLEM - General Chief Complaint: Gastrointestinal Problem Stated Complaint: POSSIBLE STOMACH VIRUS Time Seen by Provider: 08/18/20 13:21 Source of Information: Reports: Patient History Limitations: Reports: No Limitations - History of Present Illness INITIAL COMMENTS - FREE TEXT/NARRATIVE: HISTORY AND PHYSICAL: History of present illness: Patient is a 55-year-old male who presents to the emergency room with complaints of diarrhea, body aches, and fatigue x 2 days. He states he is using the bathroom 1-2 times per hour. He is concerned that he is dehydrated from all the "pooping I am doing". Approximately 2 to 3 hours prior to arrival he started to develop left anterior chest pain which is not aggravated or alleviated with physical activity/rest. He does have some mild nausea, one episode of vomiting last night. Patient denies any fever, chills, headache, change in vision, syncope or near syncope. Denies any shortness of breath or cough. Denies any abdominal pain, constipation or dysuria. Has not noted any blood in urine or stool. Patient has been eating and drinking appropriately. 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 History of HTN. Has seen Dr Matamoros (cardiology) for routine evaluations. Denies having past VT. Review of systems: As per history of present illness and below otherwise all systems reviewed and negative. Past medical history: As per history of present illness and as reviewed below otherwise noncontributory. Surgical history: As per history of present illness and as reviewed below otherwise noncontributory. Social history: See social history for further information Family history: As per history of present illness and as reviewed below otherwise noncontributory. Physical exam: General: Well developed and well nourished. Alert and orientated x 3. Nontoxic in appearance and in no acute distress. Vital signs are stable and have been reviewed by me. Nursing notes were reviewed. HEENT: Atraumatic, normocephalic, pupils equal and reactive bilaterally, negative for conjunctival pallor or scleral icterus, mucous membranes moist, TMs normal bilaterally, throat clear, neck supple, nontender, trachea midline. No drooling or trismus noted. No meningeal signs. No hot potato voice noted. Lungs: Clear to auscultation, breath sounds equal bilaterally, chest nontender. Normal work of breathing, no accessory muscles used. Heart: S1S2, regular rate and rhythm without overt murmur Abdomen: Soft, nondistended, nontender. Umbilical hernia is noted (has had for 16 years). Negative for masses or hepatosplenomegaly. Negative for costovertebral tenderness. Skin: Intact, warm, dry. No lesions or rashes noted. Hematologic: No petechiae or purpra. Mucosa appropriate color and normal nail bed color and refill. Extremities: Atraumatic, moves all extremities per self without difficulty or deficits, negative for cords or calf pain. Neurovascular unremarkable. Neuro: Awake, alert, oriented. Cranial nerves II through XII unremarkable. Cerebellum unremarkable. Motor and sensory unremarkable throughout. Exam nonfocal. Psychiatric: Mood and affect are appropriate. Normal thought process. Answering questions appropriately. Notes: Chest x-ray overall unchanged right basilar airspace opacity likely representing worsening infiltrate. Patient does have a positive troponin. Aspirin has already been given, his blood pressure is borderline to give any nitro at this time. We will continue to monitor. Patient continues to rate his pain 2/10. We will give him 2 mg of morphine with close observation of his blood pressure. 1500: Did attempt to get placement at [facility] in [place], they are currently on diversion. 1505: [facility], Dr Palafox has accepted this patient. Patient will be transferred via flight as our ground rules are unavailable for an extended period of time. Patient is aware of the need for transfer and agreeable. Currently pain-free. We will continue to monitor. Diagnostics: CBC, CMP, Troponin, EKG, CXR, COVID, Stool studies, UA Therapeutics: IV fluids, ASA, Morphine, Lovenox Impression: Diarrhea NSTEMI Plan: Transfer to [facility] in [facility] Definitive disposition and diagnosis as appropriate pending reevaluation and review of above. chest Pain Score (Numeric/FACES): 6 - Related Data Allergies Allergy/AdvReac Type Severity Reaction Status Date / Time Penicillins Allergy Cannot Verified 08/18/20 13:29 Remember Home Meds: Home Meds Aspirin 81 mg PO DAILY 03/20/17 [History] Furosemide 40 mg PO BID 03/20/17 [History] Lisinopril 10 mg PO BEDTIME 03/20/17 [History] Spironolactone [Aldactone] 25 mg PO DAILY 03/20/17 [History] Tamsulosin [Flomax] 0.4 mg PO DAILY 01/03/20 [History] Albuterol [Ventolin HFA] 1 puff INH ASDIRECTED PRN 07/25/20 [History] Albuterol/Ipratropium [DuoNeb 3.0-0.5 MG/3 ML] 3 ml NEB Q6HRRT PRN 07/25/20 [History] Budesonide/Formoterol Fumarate [Symbicort 160-4.5 Mcg Inhaler] 2 puff INH BID 07/25/20 [History] levoFLOXacin [Levaquin] 750 mg PO DAILY #3 tab 07/26/20 [Rx] metOLazone [Metolazone] 2.5 mg PO Q48H PRN 07/26/20 [History] Past Medical History HEENT History: Reports: Impaired Vision Other HEENT History: wears glasses Cardiovascular History: Reports: CAD, High Cholesterol, Hypertension, Other (See Below) Other Cardiovascular History: rheumatoid fever Respiratory History: Reports: Asthma, Other (See Below) Other Respiratory History: strep throat Gastrointestinal History: Reports: None Other Gastrointestinal History: States he has a haital hernia Genitourinary History: Reports: None Musculoskeletal History: Reports: None Neurological History: Reports: None Psychiatric History: Reports: None Endocrine/Metabolic History: Reports: None Insulin Pump Model and Can Slider: N/A Hematologic History: Reports: None Immunologic History: Reports: None Oncologic (Cancer) History: Reports: None Dermatologic History: Reports: None - Infectious Disease History Infectious Disease History: Reports: Chicken Pox, Measles, MRSA - Past Surgical History Head Surgeries/Procedures: Reports: None GI Surgical History: Reports: Hernia, Inguinal Social & Family History - Family History Family Medical History: Noncontributory - Tobacco Use Tobacco Use Status *Q: Never Tobacco User - Caffeine Use Caffeine Use: Reports: None Caffeine Use Comment: 1 cup daily - Recreational Drug Use Recreational Drug Use: No ED ROS GENERAL - Review of Systems Review Of Systems: Comprehensive ROS is negative, except as noted in HPI. ED EXAM, GI/ABD - Physical Exam Exam: See Below (See dictation) Course - Vital Signs Last Recorded V/S: Last Vital Signs Temp 96.7 F L 08/18/20 13:25 Pulse 103 H 08/18/20 13:25 Resp 18 10/28/20 13:25 BP 94/51 L 08/18/20 13:25 Pulse Ox 96 08/18/20 13:25 - Orders/Labs/Meds Orders: Active Orders 24 hr Category Date Time Status EKG Documentation Completion [RC] STAT Care 08/18/20 13:34 Active CAMPYLOBACTER AG BY IMMUNO [MREF] Stat Lab 08/18/20 13:39 Ordered CORONAVIRUS COVID-19 PCR PHL Stat Lab 08/18/20 14:35 Received OVA & PARASITES BY IMMUNOASSAY [MREF] Stat Lab 08/18/20 13:39 Ordered STOOL CULTURE/SHIGA TOXIN [MREF] Stat Lab 08/18/20 13:39 Ordered Sodium Chloride 0.9% [Saline Flush] Med 08/18/20 13:34 Active 10 ml FLUSH ASDIRECTED PRN Sodium Chloride 0.9% [Saline Flush] Med 08/18/20 13:34 Active 2.5 ml FLUSH ASDIRECTED PRN Saline Lock Insert [OM.PC] Stat Oth 08/18/20 13:34 Ordered Medication Orders Sodium Chloride (Saline Flush) 10 ml FLUSH ASDIRECTED PRN PRN Reason: Keep Vein Open Last Admin: 08/18/20 15:01 Dose: 10 ml Documented by: CARLOS Sodium Chloride (Saline Flush) 2.5 ml FLUSH ASDIRECTED PRN PRN Reason: Keep Vein Open Last Admin: 08/18/20 15:01 Dose: 2.5 ml Documented by: CARLOS Labs: Laboratory Tests 08/18/20 08/18/20 08/18/20 Range/Units 14:02 14:02 14:02 WBC 10.29 (4.0-11.0) K/uL RBC 4.60 (4.50-5.90) M/uL Hgb 13.2 (13.0-17.0) g/dL Hct 40.5 (38.0-50.0) % MCV 88.0 (80.0-98.0) fL MCH 28.7 (27.0-32.0) pg MCHC 32.6 (31.0-37.0) g/dL RDW Std Deviation 40.8 (28.0-62.0) fl RDW Coeff of Lynne 13 (11.0-15.0) % Plt Count 238 (150-400) K/uL MPV 10.10 (7.40-12.00) fL Neut % (Auto) 79.8 (48.0-80.0) % Lymph % (Auto) 11.2 L (16.0-40.0) % [place] % (Auto) 8.4 (0.0-15.0) % Eos % (Auto) 0.4 (0.0-7.0) % Baso % (Auto) 0.2 (0.0-1.5) % Neut # (Auto) 8.2 H (1.4-5.7) K/uL Lymph # (Auto) 1.2 (0.6-2.4) K/uL [place] # (Auto) 0.9 H (0.0-0.8) K/uL Eos # (Auto) 0.0 (0.0-0.7) K/uL Baso # (Auto) 0.0 (0.0-0.1) K/uL Nucleated RBC % 0.0 /100WBC Nucleated RBCs # 0 K/uL INR 1.05 Sodium 132 L (136-148) mmol/L Potassium 3.4 L (3.5-5.1) mmol/L Chloride 95 L (98-107) mmol/L Carbon Dioxide 31.3 (21.0-32.0) mmol/L BUN 32 H (7.0-18.0) mg/dL Creatinine 1.5 H (0.8-1.3) mg/dL Est Cr Clr Drug Dosing 49.03 mL/min Estimated GFR (MDRD) 48.2 ml/min Glucose 113 H (74-106) mg/dL Calcium 9.1 (8.5-10.1) mg/dL Total Bilirubin 0.5 (0.2-1.0) mg/dL AST 20 (15-37) IU/L ALT 36 (14-63) IU/L Alkaline Phosphatase 58 (46-116) U/L Troponin I 0.144 H* (0.000-0.056) ng/mL Total Protein 6.9 (6.4-8.2) g/dL Albumin 3.3 L (3.4-5.0) g/dL Globulin 3.6 (2.6-4.0) g/dL Albumin/Globulin Ratio 0.9 (0.9-1.6) Lipase 229 (73-393) U/L Urine Color Urine Appearance Urine pH (5.0-8.0) Ur Specific [place] (1.001-1.035) Urine Protein (NEGATIVE) mg/dL Urine Glucose (UA) (NEGATIVE) mg/dL Urine Ketones (NEGATIVE) mg/dL Urine Occult Blood (NEGATIVE) Urine Nitrite (NEGATIVE) Urine Bilirubin (NEGATIVE) Urine Urobilinogen (<2.0) EU/dL Ur Leukocyte Esterase (NEGATIVE) U Hyaline Cast (Auto) (0-2/LPF) Urine RBC (0-2/HPF) Urine WBC (0-5/HPF) Ur Epithelial Cells (NONE-FEW) Urine Bacteria (NEGATIVE) SARS CoV-2 RNA Rapid OMEGA (NEGATIVE) 08/18/20 08/18/20 Range/Units 14:11 14:35 WBC (4.0-11.0) K/uL RBC (4.50-5.90) M/uL Hgb (13.0-17.0) g/dL Hct (38.0-50.0) % MCV (80.0-98.0) fL MCH (27.0-32.0) pg MCHC (31.0-37.0) g/dL RDW Std Deviation (28.0-62.0) fl RDW Coeff of Lynne (11.0-15.0) % Plt Count (150-400) K/uL MPV (7.40-12.00) fL Neut % (Auto) (48.0-80.0) % Lymph % (Auto) (16.0-40.0) % [place] % (Auto) (0.0-15.0) % Eos % (Auto) (0.0-7.0) % Baso % (Auto) (0.0-1.5) % Neut # (Auto) (1.4-5.7) K/uL Lymph # (Auto) (0.6-2.4) K/uL [place] # (Auto) (0.0-0.8) K/uL Eos # (Auto) (0.0-0.7) K/uL Baso # (Auto) (0.0-0.1) K/uL Nucleated RBC % /100WBC Nucleated RBCs # K/uL INR Sodium (136-148) mmol/L Potassium (3.5-5.1) mmol/L Chloride (98-107) mmol/L Carbon Dioxide (21.0-32.0) mmol/L BUN (7.0-18.0) mg/dL Creatinine (0.8-1.3) mg/dL Est Cr Clr Drug Dosing mL/min Estimated GFR (MDRD) ml/min Glucose (74-106) mg/dL Calcium (8.5-10.1) mg/dL Total Bilirubin (0.2-1.0) mg/dL AST (15-37) IU/L ALT (14-63) IU/L Alkaline Phosphatase (46-116) U/L Troponin I (0.000-0.056) ng/mL Total Protein (6.4-8.2) g/dL Albumin (3.4-5.0) g/dL Globulin (2.6-4.0) g/dL Albumin/Globulin Ratio (0.9-1.6) Lipase (73-393) U/L Urine Color YELLOW Urine Appearance SLT CLOUDY Urine pH 5.0 (5.0-8.0) Ur Specific [place] 1.025 (1.001-1.035) Urine Protein TRACE H (NEGATIVE) mg/dL Urine Glucose (UA) NEGATIVE (NEGATIVE) mg/dL Urine Ketones TRACE H (NEGATIVE) mg/dL Urine Occult Blood NEGATIVE (NEGATIVE) Urine Nitrite NEGATIVE (NEGATIVE) Urine Bilirubin NEGATIVE (NEGATIVE) Urine Urobilinogen 0.2 (<2.0) EU/dL Ur Leukocyte Esterase NEGATIVE (NEGATIVE) U Hyaline Cast (Auto) 2-5 (0-2/LPF) Urine RBC 0-2 (0-2/HPF) Urine WBC 0-2 (0-5/HPF) Ur Epithelial Cells FEW (NONE-FEW) Urine Bacteria FEW (NEGATIVE) SARS CoV-2 RNA Rapid OEMGA NEGATIVE (NEGATIVE) Meds: Medications Generic Name Dose Route Start Last Admin Trade Name Freq PRN Reason Stop Dose Admin Sodium Chloride 10 ml 08/18/20 13:34 08/18/20 15:01 Saline Flush FLUSH 10 ml ASDIRECTED PRN Administration Keep Vein Open Sodium Chloride 2.5 ml 08/18/20 13:34 08/18/20 15:01 Saline Flush FLUSH 2.5 ml ASDIRECTED PRN Administration Keep Vein Open Discontinued Medications Generic Name Dose Route Start Last Admin Trade Name Freq PRN Reason Stop Dose Admin Aspirin 324 mg 08/18/20 13:34 08/18/20 13:57 Aspirin PO 08/18/20 13:35 324 mg ONETIME ONE Administration Enoxaparin Sodium 100 mg 08/18/20 15:19 08/18/20 15:41 Lovenox SUBCUT 08/18/20 15:20 100 mg ONETIME ONE Administration Sodium Chloride 1,000 mls @ 999 mls/hr 08/18/20 13:34 08/18/20 14:02 Normal Saline IV 08/18/20 14:34 999 mls/hr STAT ONE Administration Morphine Sulfate 2 mg 08/18/20 14:50 08/18/20 15:01 Morphine IVPUSH 08/18/20 14:51 2 mg ONETIME ONE Administration Departure - Departure Time of Disposition: 15:21 Disposition: DC/Tfer to Acute Hospital 02 Clinical Impression: NSTEMI (non-ST elevated myocardial infarction) Diarrhea Qualifiers: Diarrhea type: unspecified type Qualified Code(s): R19.7 - Diarrhea, unspecified - Discharge Information Referrals: Yimi Rodriguez MD [Primary Care Provider] - Forms: ED Department Discharge Sepsis Event Note (ED) - Evaluation Sepsis Screening Result: Possible Sepsis Risk - Focused Exam Vital Signs: Vital Signs Temp Pulse Resp BP Pulse Ox 08/18/20 13:25 96.7 F L 103 H 18 94/51 L 96 - My Orders Last 24 Hours: My Active Orders 08/18/20 13:34 EKG Documentation Completion [RC] STAT Sodium Chloride 0.9% [Saline Flush] 10 ml FLUSH ASDIRECTED PRN Sodium Chloride 0.9% [Saline Flush] 2.5 ml FLUSH ASDIRECTED PRN Saline Lock Insert [OM.PC] Stat 08/18/20 13:39 CAMPYLOBACTER AG BY IMMUNO [MREF] Stat OVA & PARASITES BY IMMUNOASSAY [MREF] Stat STOOL CULTURE/SHIGA TOXIN [MREF] Stat 08/18/20 14:35 CORONAVIRUS COVID-19 PCR PHL Stat - Assessment/Plan Last 24 Hours: My Active Orders 08/18/20 13:34 EKG Documentation Completion [RC] STAT Sodium Chloride 0.9% [Saline Flush] 10 ml FLUSH ASDIRECTED PRN Sodium Chloride 0.9% [Saline Flush] 2.5 ml FLUSH ASDIRECTED PRN Saline Lock Insert [OM.PC] Stat 08/18/20 13:39 CAMPYLOBACTER AG BY IMMUNO [MREF] Stat OVA & PARASITES BY IMMUNOASSAY [MREF] Stat STOOL CULTURE/SHIGA TOXIN [MREF] Stat 08/18/20 14:35 CORONAVIRUS COVID-19 PCR PHL Stat
--- NOTE | 2020-08-18 13:43 | PCM.SN.2 ---
- Free Text/Narrative Note: EKG time 1:31pm Rate 101 Sinus Tachy no ALISSON
--- NOTE | 2020-08-18 14:36 | CR ---
INDICATION: Chest pain TECHNIQUE: Chest 1 views COMPARISON: Single view chest July 24, 2020 FINDINGS: There is persistent airspace opacification of the right lung base which may represent infiltrate. The left hemithorax remains clear. Stable cardiac silhouette enlargement with demonstration of ICD. A pericardial effusion is not excluded. The bony thorax is otherwise intact without evidence of pneumothorax. IMPRESSION: Overall unchanged right basilar airspace opacity likely representing worsening infiltrate. Dictated by Luis Velasco MD @ Aug 18 2020 2:33PM Signed by Dr. Luis Velasco @ Aug 18 2020 2:34PM
[2020-08-18 14:38] LABS: CARBON DIOXIDE,CO2 31.3 mmol/L (21.0-32.0); POTASSIUM,K 3.4 mmol/L (3.5-5.1)
[2020-08-18] MEDS ORDERED: Morphine 2 MG/ML SYRINGE IVPUSH ONE (14:50)
[2020-08-18] MEDS ORDERED: Enoxaparin 100 MG/1 ML Syringe SUBCUT ONE (15:19)
[2020-08-18 17:12] VITALS: BP 109/61; PULSE 97
== END 2020-08-18 16:00 ==
LOC: MW.ED 13:09
DX: I21.4 Non-ST elevation (NSTEMI) myocardial infarction (principal); R19.7 Diarrhea, unspecified; I25.10 Atherosclerotic heart disease of native coronary artery without angina pectoris; I10 Essential (primary) hypertension; J45.909 Unspecified asthma, uncomplicated; Z88.0 Allergy status to penicillin; Z79.82 Long term (current) use of aspirin; Z79.899 Other long term (current) drug therapy; Z20.828 Contact with and (suspected) exposure to other viral communicable diseases
CPT/HCPCS: 36415; 71045; 80053; 81001; 83690; 84484; 85025; 85610; 87635; 93005; 96372; 96374; 99285; A9270; J1650; J2270; J7030; U0002

== ENCOUNTER 2021-01-15 17:19 | Emergency (ER) | payer SELFPAY ==
[2021-01-15] MEDS ORDERED: Albuterol HFA 18 Gm Inhaler INH STA ×2 (17:52→18:16)
[2021-01-15] MEDS ORDERED: Albuterol 8 GM Inhaler INH ONE (17:57)
--- NOTE | 2021-01-15 17:57 | EDM.PDOC ---
ED HPI GENERAL MEDICAL PROBLEM - General Chief Complaint: Respiratory Problem Stated Complaint: CONGESTION Time Seen by Provider: 01/15/21 17:41 - History of Present Illness INITIAL COMMENTS - FREE TEXT/NARRATIVE: 55-year-old male history of asthma and COPD prior history of heart failure but not currently receiving heart failure treatment and was removed from his medications by his doctor who is presenting with nasal congestion. The patient has been taking Mucinex D and says that he feels unusual her off while it is in the system and then 6 hours later when it wears off feels a little bit better. He reports significant nasal congestion very minimal cough denies shortness of breath or chest pain but notes that he had one nebulizer packet left and he took that last night and it seemed to help him significantly. He denies lower extremity pain or swelling denies recent travel no sick contacts patient is status post his first Covid shot around 10 days ago. No radiation or other associated symptoms. - Related Data Allergies Allergy/AdvReac Type Severity Reaction Status Date / Time Penicillins Allergy Cannot Verified 01/15/21 17:48 Remember Home Meds: Home Meds Aspirin 81 mg PO DAILY 03/20/17 [History] Furosemide 40 mg PO BID 03/20/17 [History] Lisinopril 10 mg PO BEDTIME 03/20/17 [History] Spironolactone [Aldactone] 25 mg PO DAILY 03/20/17 [History] Tamsulosin [Flomax] 0.4 mg PO DAILY 01/03/20 [History] Albuterol [Ventolin HFA] 1 puff INH ASDIRECTED PRN 07/25/20 [History] Albuterol/Ipratropium [DuoNeb 3.0-0.5 MG/3 ML] 3 ml NEB Q6HRRT PRN 07/25/20 [History] Budesonide/Formoterol Fumarate [Symbicort 160-4.5 Mcg Inhaler] 2 puff INH BID 07/25/20 [History] Albuterol [Proventil] 2.5 mg INH QIDRT PRN 5 Days #20 neb 01/15/21 [Rx] Azithromycin 500 mg PO ASDIRECTED #3 tablet 01/15/21 [Rx] Cefpodoxime [Vantin] 200 mg PO BID #10 tab 01/15/21 [Rx] Past Medical History HEENT History: Reports: Impaired Vision Other HEENT History: wears glasses Cardiovascular History: Reports: CAD, High Cholesterol, Hypertension, Other (See Below) Other Cardiovascular History: rheumatoid fever Respiratory History: Reports: Asthma, Other (See Below) Other Respiratory History: strep throat Gastrointestinal History: Reports: None Other Gastrointestinal History: States he has a haital hernia Genitourinary History: Reports: None Musculoskeletal History: Reports: None Neurological History: Reports: None Psychiatric History: Reports: None Endocrine/Metabolic History: Reports: None 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 Hematologic History: Reports: None Immunologic History: Reports: None Oncologic (Cancer) History: Reports: None Dermatologic History: Reports: None - Infectious Disease History Infectious Disease History: Reports: Chicken Pox, Measles, MRSA - Past Surgical History Head Surgeries/Procedures: Reports: None HEENT Surgical History: Reports: None Cardiovascular Surgical History: Reports: Other (See Below) Other Cardiovascular Surgeries/Procedures: with implanted defibrilator Respiratory Surgical History: Reports: None GI Surgical History: Reports: Hernia, Inguinal Other Male Surgeries/Procedures: Enlarged Prostate Social & Family History - Family History Family Medical History: No Pertinent Family History - Tobacco Use Tobacco Use Status *Q: Never Tobacco User - Caffeine Use Caffeine Use: Reports: Soda Caffeine Use Comment: 1 cup daily - Recreational Drug Use Recreational Drug Use: No ED ROS GENERAL - Review of Systems Review Of Systems: See Below Free Text/Narrative/Comment: General: No fever. Skin: No rash. Eyes: No vision problems. ENT: No sore throat. Neck: No neck stiffness. Respiratory: Per HPI Cardiac: No chest pain. Gastrointestinal: No nausea, vomiting or abdominal pain. Urinary: No dysuria. Musculoskeletal: No myalgias/arthralgias. Neurologic: No headache. ED EXAM, GENERAL - Physical Exam Exam: See Below Free Text/Narrative:: General Appearance: No acute distress, appears comfortable Skin: No rash HEENT: Normocephalic/atraumatic, sclera anicteric, mucous membranes moist Neck: Normal range of motion Chest and Lungs: Bilateral breath sounds, clear to auscultation Cardiovascular: Regular rate and rhythm, no murmur Abdomen: Soft, non-tender Back: Normal Musculoskeletal: No edema or tenderness Neurologic: Awake, alert, no obvious deficits, moving all extremities Psychiatric: Appropriate, cooperative Course - Vital Signs Last Recorded V/S: Last Vital Signs Temp 96.2 F L 03/27/21 17:46 Pulse 112 H 01/15/21 17:46 Resp 20 01/15/21 17:46 BP 136/74 01/15/21 17:46 Pulse Ox 94 L 01/15/21 17:46 - Orders/Labs/Meds Orders: Active Orders 24 hr Category Date Time Status RT Post Treatment Assessment [RC] Click to Edit Care 01/15/21 17:53 Active RT Post Treatment Assessment [RC] Click to Edit Care 01/15/21 18:16 Active RT Pre-Treatment Assessment [RC] Click to Edit Care 01/15/21 17:53 Active RT Pre-Treatment Assessment [RC] Click to Edit Care 01/15/21 18:16 Active Meds: Medications Discontinued Medications Generic Name Dose Route Start Last Admin Trade Name Freq PRN Reason Stop Dose Admin Albuterol 2 gm 01/15/21 17:52 01/15/21 18:15 Albuterol Hfa 18 Gm Inhaler INH 01/15/21 17:53 Not Given NOW STA Albuterol Confirm 01/15/21 17:57 01/15/21 18:15 Albuterol 8 Gm Inhaler Administered 01/15/21 17:58 Not Given Dose 8 gm INH .STK-MED ONE Albuterol 8 gm 01/15/21 18:16 01/15/21 18:17 Albuterol Hfa 18 Gm Inhaler INH 01/15/21 18:17 2 inhalation NOW STA Administration Departure - Departure Time of Disposition: 18:33 Disposition: Home, Self-Care 01 Condition: Good Clinical Impression: Pneumonia Qualifiers: Pneumonia type: due to unspecified organism Laterality: right Lung location: lower lobe of lung Qualified Code(s): J18.9 - Pneumonia, unspecified organism - Discharge Information *PRESCRIPTION DRUG MONITORING PROGRAM REVIEWED*: Not Applicable *COPY OF PRESCRIPTION DRUG MONITORING REPORT IN PATIENT NADEGE: Not Applicable Prescriptions: Azithromycin 500 mg PO ASDIRECTED #3 tablet Albuterol [Proventil] 2.5 mg INH QIDRT PRN 5 Days #20 neb PRN Reason: Shortness Of Breath Cefpodoxime [Vantin] 200 mg PO BID #10 tab Referrals: Yimi Rodriguez MD [Primary Care Provider] - Forms: ED Department Discharge Additional Instructions: Please be sure to follow-up with your primary care doctor. Your chest x-ray showed likely early pneumonia and for this reason you were started on 2 different antibiotics. Please do not take any combination medicines or decongestants please only take standard Mucinex or its generic equivalent. The following information is given to patients seen in the emergency department who are being discharged to home. This information is to outline your options for follow-up care. We provide all patients seen in our emergency department with a follow-up referral. The need for follow-up, as well as the timing and circumstances, are variable depending upon the specifics of your emergency department visit. If you don't have a primary care physician on staff, we will provide you with a referral. We always advise you to contact your personal physician following an emergency department visit to inform them of the circumstance of the visit and for follow-up with them and/or the need for any referrals to a consulting specialist. The emergency department will also refer you to a specialist when appropriate. This referral assures that you have the opportunity for follow-up care with a specialist. All of these measure are taken in an effort to provide you with optimal care, which includes your follow-up. Under all circumstances we always encourage you to contact your private physician who remains a resource for coordinating your care. When calling for follow-up care, please make the office aware that this follow-up is from your recent emergency room visit. If for any reason you are refused follow-up, please contact the [facility] Emergency Department at and asked to speak to the emergency department charge nurse. Sepsis Event Note (ED) - Evaluation Sepsis Screening Result: No Definite Risk - Focused Exam Vital Signs: Vital Signs Temp Pulse Resp BP Pulse Ox 01/15/21 17:46 96.2 F L 112 H 20 136/74 94 L - My Orders Last 24 Hours: My Active Orders 01/15/21 17:53 RT Post Treatment Assessment [RC] Click to Edit RT Pre-Treatment Assessment [RC] Click to Edit 01/15/21 18:16 RT Post Treatment Assessment [RC] Click to Edit RT Pre-Treatment Assessment [RC] Click to Edit - Assessment/Plan Last 24 Hours: My Active Orders 01/15/21 17:53 RT Post Treatment Assessment [RC] Click to Edit RT Pre-Treatment Assessment [RC] Click to Edit 01/15/21 18:16 RT Post Treatment Assessment [RC] Click to Edit RT Pre-Treatment Assessment [RC] Click to Edit Assessment:: 55-year-old male presenting with signs and symptoms that are most consistent with a viral URI with discussed avoiding any decongestant-containing medications as I think this is likely why is having poor response to the Mucinex D. Patient given 2 puffs of albuterol here for symptomatic treatment but no significant wheezing on initial exam. Normal work of breathing. Given his past history is history of lung disease chest x-ray to exclude community-acquired pneumonia. Regardless patient's vital signs are good and if he does have pneumonia he would likely be a candidate for outpatient treatment. He has no myalgias he has no headache he has no fever he has nothing to suggest Covid. 1830: Chest x-ray with early pneumonia. Given his history of asthma and his penicillin allergy will cover with Cefpodoxime and azithromycin. Pt continues to look and feel well. Pt discharged with f/u.
--- NOTE | 2021-01-15 18:20 | CR ---
INDICATION: Cough and congestion for 1 day. Patient gets pneumonia frequently. COMPARISON: Chest single view from 08/18/2020 and chest two views from 01/02/2020 FINDINGS: PA and lateral views of the chest were obtained. The previously seen small patchy right lower lung infiltrate has resolved. There is new minimal linear patchy infiltrate in the right infrahilar lung which could be an early right middle lobe pneumonia. I do not see a definite infiltrate in the posterior lower chest on the lateral view to suggest that this is a right lower lobe pneumonia. The rest of the chest is clear. The heart has decreased in size and is now normal in size. Again seen is the left-sided defibrillator generator implanted in the left lateral lower chest wall with the electrode tip in the presternal region just to the right of midline. The mediastinum is normal in appearance. The osseous structures are normal in appearance for the patient`s age. IMPRESSION: Resolution of previously seen moderate patchy right lower lung infiltrate. New minimal linear right infrahilar infiltrate is possibly an early right middle lobe pneumonia. Decrease in heart size, now normal. Dictated by Scotty Argueta MD @ Jan 15 2021 6:15PM Signed by Dr. Scotty Argueta @ Jan 15 2021 6:19PM
[2021-01-15 18:53] VITALS: BP 127/72; PULSE 100
== END 2021-01-15 18:53 | disposition home or self-care (01) ==
LOC: MW.ED 17:19
DX: J18.9 Pneumonia, unspecified organism (principal); I25.10 Atherosclerotic heart disease of native coronary artery without angina pectoris; I10 Essential (primary) hypertension; J45.909 Unspecified asthma, uncomplicated; Z88.0 Allergy status to penicillin; Z79.82 Long term (current) use of aspirin; Z79.899 Other long term (current) drug therapy
CPT/HCPCS: 71046; 99283; A9270; J3535-GY

== ENCOUNTER 2021-02-08 17:38 | Emergency (ER) | payer SELFPAY ==
[2021-02-08] MEDS ORDERED: Sodium Chloride 0.9% 2.5 ML Syringe FLUSH PRN (19:06)
[2021-02-08] MEDS ORDERED: Sodium Chloride 0.9% 10 ML Syringe FLUSH PRN (19:06)
--- NOTE | 2021-02-08 19:11 | EDM.PDOC ---
ED HPI GENERAL MEDICAL PROBLEM - General Chief Complaint: Respiratory Problem Stated Complaint: POSSIBLE PNEUMONIA, LUNG PAIN Time Seen by Provider: 02/08/21 19:01 - History of Present Illness INITIAL COMMENTS - FREE TEXT/NARRATIVE: History of present illness: []The patient complains of shortness of rbeath. It is worsening over 24 hours Since it got worse after exposure to cold auir on errands yesterday he thinks it's pneumonia. He is short of breah, diaphoretic, and has abnterior chest soreness. It is all worse with exertiona nd dyspnea significantly worse with suine position. He has made less ruine the last 24 hours and is constipated. He takes furosemide for CHF and an inhaler for COPD. He thinks his ankle are more swollen than usual. Review of systems: As per history of present illness and below otherwise all systems reviewed and negative. Past medical history: As per history of present illness and as reviewed below otherwise noncontributory. Surgical history: As per history of present illness and as reviewed below otherwise noncontributory. Social history: No reported history of drug or alcohol abuse. Family history: As per history of present illness and as reviewed below otherwise noncontrib utory. Physical exam: Constitutional - well developed, well-nourished and in no acute distress HEENT - normocephalic, no evidence of trauma - external nose and mouth normal - no mass in neck and no JVD - mucosae moist EYES - full EOM, PERRL, no icterus - no evidence of inflammation, injection, or drainage Respiratory - no respiratory distress, equal bilateral expansion, lungs clear to auscultation but somewhat diminished throughout.s Cardiovascular - Regular Rhythm with S1 and S2 appreciated and no murmur, gallop or rub. GI - abdomen soft without distension or organomegaly - normal bowel sounds - no guard or rebound Musculoskeletal no gross deformity of long bones or joints - no tenderness but 2+ pitting edema BLE. Neurologic - Alert and oriented times four - CN II-XII grossly intact - motor sensory and coordination symmetrically normal Psychiatric - appropriate mood and affect with normal thought content Hematologic - No petechiae or purpura - mucosa appropriate color and sclera not pale - normal nail bed color and refill Integument - no rash or evidence of trauma - normal turgor Diagnostics: [] Therapeutics: [] Impression: [] Plan: [] Definitive disposition and diagnosis as appropriate pending reevaluation and review of above. Chest Pain Score (Numeric/FACES): 4 - Related Data Allergies Allergy/AdvReac Type Severity Reaction Status Date / Time Penicillins Allergy Cannot Verified 02/08/21 18:29 Remember Home Meds: Home Meds Aspirin 81 mg PO DAILY 03/20/17 [History] Furosemide 40 mg PO BID 03/20/17 [History] Lisinopril 10 mg PO BEDTIME 03/20/17 [History] Spironolactone [Aldactone] 25 mg PO DAILY 03/20/17 [History] Tamsulosin [Flomax] 0.4 mg PO DAILY 01/03/20 [History] Albuterol [Ventolin HFA] 1 puff INH ASDIRECTED PRN 07/25/20 [History] Albuterol/Ipratropium [DuoNeb 3.0-0.5 MG/3 ML] 3 ml NEB Q6HRRT PRN 07/25/20 [History] Budesonide/Formoterol Fumarate [Symbicort 160-4.5 Mcg Inhaler] 2 puff INH BID 07/25/20 [History] Albuterol [Proventil] 2.5 mg INH QIDRT PRN 5 Days #20 neb 01/15/21 [Rx] Azithromycin 500 mg PO ASDIRECTED #3 tablet 01/15/21 [Rx] Cefpodoxime [Vantin] 200 mg PO BID #10 tab 01/15/21 [Rx] Past Medical History HEENT History: Reports: Impaired Vision Other HEENT History: wears glasses Cardiovascular History: Reports: CAD, High Cholesterol, Hypertension, Other (See Below) Other Cardiovascular History: rheumatoid fever Respiratory History: Reports: Asthma, Other (See Below) Other Respiratory History: strep throat Gastrointestinal History: Reports: None Other Gastrointestinal History: States he has a haital hernia Genitourinary History: Reports: None Musculoskeletal History: Reports: None Neurological History: Reports: None Psychiatric History: Reports: None Endocrine/Metabolic History: Reports: None 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 Hematologic History: Reports: None Immunologic History: Reports: None Oncologic (Cancer) History: Reports: None Dermatologic History: Reports: None - Infectious Disease History Infectious Disease History: Reports: Chicken Pox, Measles, MRSA - Past Surgical History Head Surgeries/Procedures: Reports: None HEENT Surgical History: Reports: None Cardiovascular Surgical History: Reports: Other (See Below) Other Cardiovascular Surgeries/Procedures: with implanted defibrilator Respiratory Surgical History: Reports: None GI Surgical History: Reports: Hernia, Inguinal Other Male Surgeries/Procedures: Enlarged Prostate Social & Family History - Family History Family Medical History: No Pertinent Family History - Tobacco Use Tobacco Use Status *Q: Never Tobacco User - Caffeine Use Caffeine Use: Reports: None Caffeine Use Comment: 1 cup daily - Recreational Drug Use Recreational Drug Use: No ED ROS GENERAL - Review of Systems Review Of Systems: Comprehensive ROS is negative, except as noted in HPI. ED EXAM, GENERAL - Physical Exam Exam: See Below Free Text/Narrative:: My physical exam is in the HPI section #1 Interpretation EKG Date: 02/08/21 Time: 18:36 Rhythm: NSR Rate (Beats/Min): 99 [place]: Normal P-Wave: Present QRS: Other (Q in III) QT: Prolonged Comparison: Change From Previous EKG (Compared to 08/18/20 the minimal R in lead III is not visible and the QT is slightly longer) EKG Interpretation Comments: Impression - no acute injury Course - Vital Signs Text/Narrative:: 2001 hrs. chest x-ray reveals reaccumulation of some density in the right base as well as heart size enlargement. This is compared to 08/18/2020 when it was declarative worsening infiltrate and it is not nearly as discrete are well- defined. The diaphragmatic shadow is much better seen on the right side as is the costophrenic angle. Weaver's much more obvious than on the resolution film done 15 January 2021 in which it was declared that the infiltrate on the right- sided disappeared. It appears now and has CHF. 2024 hrs. the patient's troponin is 0.294. 2309 troponin I up to 0.312. This may not be significant but he certainly seems like he had an acute myocardial event 2 days ago and resultant CHF. Discussed with Dr. Villalobos and Viet and he accepted the patient in transfer for cardiology evaluation. Lovenox was administered and his ideal body weight would be 64 kg adjusted body weight per med Calc is 87 kg. Last Recorded V/S: Last Vital Signs Temp 36.1 C 02/08/21 18:31 Pulse 101 H 02/08/21 21:11 Resp 18 02/08/21 21:11 BP 135/75 02/08/21 21:11 Pulse Ox 95 02/08/21 21:11 - Orders/Labs/Meds Orders: Active Orders 24 hr Category Date Time Status Cardiac Monitoring [RC] . DIRECTED Care 02/08/21 19:06 Active EKG Documentation Completion [RC] AM Care 02/08/21 19:06 Active Sodium Chloride 0.9% [Saline Flush] Med 02/08/21 19:06 Active 10 ml FLUSH ASDIRECTED PRN Sodium Chloride 0.9% [Saline Flush] Med 02/08/21 19:06 Active 2.5 ml FLUSH ASDIRECTED PRN Saline Lock Insert [OM.PC] Stat Oth 02/08/21 19:06 Ordered Medication Orders Sodium Chloride (Sodium Chloride 0.9% 10 Ml Syringe) 10 ml FLUSH ASDIRECTED PRN PRN Reason: Keep Vein Open Last Admin: 02/08/21 19:48 Dose: 10 ml Documented by: [id number] Sodium Chloride (Sodium Chloride 0.9% 2.5 Ml Syringe) 2.5 ml FLUSH ASDIRECTED PRN PRN Reason: Keep Vein Open Last Admin: 02/08/21 19:48 Dose: 2.5 ml Documented by: [email or web address] Labs: Laboratory Tests 02/08/21 02/08/21 02/08/21 Range/Units 19:30 19:30 19:30 WBC 9.51 (4.0-11.0) K/uL RBC 4.58 (4.50-5.90) M/uL Hgb 13.9 (13.0-17.0) g/dL Hct 41.5 (38.0-50.0) % MCV 90.6 (80.0-98.0) fL MCH 30.3 (27.0-32.0) pg MCHC 33.5 (31.0-37.0) g/dL RDW Std Deviation 47.9 (28.0-62.0) fl RDW Coeff of Lynne 15 (11.0-15.0) % Plt Count 276 (150-400) K/uL MPV 10.10 (7.40-12.00) fL Neut % (Auto) 78.2 (48.0-80.0) % Lymph % (Auto) 14.6 L (16.0-40.0) % [place] % (Auto) 5.7 (0.0-15.0) % Eos % (Auto) 1.2 (0.0-7.0) % Baso % (Auto) 0.3 (0.0-1.5) % Neut # (Auto) 7.4 H (1.4-5.7) K/uL Lymph # (Auto) 1.4 (0.6-2.4) K/uL [place] # (Auto) 0.5 (0.0-0.8) K/uL Eos # (Auto) 0.1 (0.0-0.7) K/uL Baso # (Auto) 0.0 (0.0-0.1) K/uL Nucleated RBC % 0.0 /100WBC Nucleated RBCs # 0 K/uL Sodium 134 L (136-148) mmol/L Potassium 3.2 L (3.5-5.1) mmol/L Chloride 100 (98-107) mmol/L Carbon Dioxide 27.0 (21.0-32.0) mmol/L BUN 11 (7.0-18.0) mg/dL Creatinine 0.9 (0.8-1.3) mg/dL Est Cr Clr Drug Dosing 81.72 mL/min Estimated GFR (MDRD) > 60.0 ml/min Glucose 108 H (74-106) mg/dL Calcium 8.6 (8.5-10.1) mg/dL Total Bilirubin 0.6 (0.2-1.0) mg/dL AST 29 (15-37) IU/L ALT 40 (14-63) IU/L Alkaline Phosphatase 75 (46-116) U/L Troponin I 0.294 H* (0.000-0.056) ng/mL B-Natriuretic Peptide 54 (<100) PG/ML Total Protein 7.5 (6.4-8.2) g/dL Albumin 3.5 (3.4-5.0) g/dL Globulin 4.0 (2.6-4.0) g/dL Albumin/Globulin Ratio 0.9 (0.9-1.6) SARS-CoV-2 RNA (OMEGA) (NEGATIVE) 02/08/21 02/08/21 Range/Units 21:05 22:27 WBC (4.0-11.0) K/uL RBC (4.50-5.90) M/uL Hgb (13.0-17.0) g/dL Hct (38.0-50.0) % MCV (80.0-98.0) fL MCH (27.0-32.0) pg MCHC (31.0-37.0) g/dL RDW Std Deviation (28.0-62.0) fl RDW Coeff of Lynne (11.0-15.0) % Plt Count (150-400) K/uL MPV (7.40-12.00) fL Neut % (Auto) (48.0-80.0) % Lymph % (Auto) (16.0-40.0) % [place] % (Auto) (0.0-15.0) % Eos % (Auto) (0.0-7.0) % Baso % (Auto) (0.0-1.5) % Neut # (Auto) (1.4-5.7) K/uL Lymph # (Auto) (0.6-2.4) K/uL [place] # (Auto) (0.0-0.8) K/uL Eos # (Auto) (0.0-0.7) K/uL Baso # (Auto) (0.0-0.1) K/uL Nucleated RBC % /100WBC Nucleated RBCs # K/uL Sodium (136-148) mmol/L Potassium (3.5-5.1) mmol/L Chloride (98-107) mmol/L Carbon Dioxide (21.0-32.0) mmol/L BUN (7.0-18.0) mg/dL Creatinine (0.8-1.3) mg/dL Est Cr Clr Drug Dosing mL/min Estimated GFR (MDRD) ml/min Glucose (74-106) mg/dL Calcium (8.5-10.1) mg/dL Total Bilirubin (0.2-1.0) mg/dL AST (15-37) IU/L ALT (14-63) IU/L Alkaline Phosphatase (46-116) U/L Troponin I 0.312 H* (0.000-0.056) ng/mL B-Natriuretic Peptide (<100) PG/ML Total Protein (6.4-8.2) g/dL Albumin (3.4-5.0) g/dL Globulin (2.6-4.0) g/dL Albumin/Globulin Ratio (0.9-1.6) SARS-CoV-2 RNA (OMEGA) NEGATIVE (NEGATIVE) Meds: Medications Generic Name Dose Route Start Last Admin Trade Name Freq PRN Reason Stop Dose Admin Sodium Chloride 10 ml 02/08/21 19:06 02/08/21 19:48 Sodium Chloride 0.9% 10 Ml Syringe FLUSH 10 ml ASDIRECTED PRN Administration Keep Vein Open Sodium Chloride 2.5 ml 02/08/21 19:06 02/08/21 19:48 Sodium Chloride 0.9% 2.5 Ml Syringe FLUSH 2.5 ml ASDIRECTED PRN Administration Keep Vein Open Discontinued Medications Generic Name Dose Route Start Last Admin Trade Name Freq PRN Reason Stop Dose Admin Aspirin 324 mg 02/08/21 21:04 02/08/21 21:11 Aspirin 81 Mg Tab.Chew PO 02/08/21 21:05 324 mg ONETIME ONE Administration Enoxaparin Sodium 100 mg 02/08/21 23:06 02/08/21 23:12 Enoxaparin 100 Mg/1 Ml Syringe SUBCUT 02/08/21 23:07 100 mg ONETIME ONE Administration Enoxaparin Sodium 100 mg 02/08/21 23:07 Enoxaparin 100 Mg/1 Ml Syringe SUBCUT 02/08/21 23:08 ONETIME ONE Departure - Departure Time of Disposition: 23:43 Disposition: DC/Tfer to Acute Hospital 02 Condition: Good Clinical Impression: Chest pain, CHF (congestive heart failure), Elevated troponin - Discharge Information Referrals: Yimi Rodriguez MD [Primary Care Provider] - Forms: ED Department Discharge Sepsis Event Note (ED) - Evaluation Sepsis Screening Result: No Definite Risk - Focused Exam Vital Signs: Vital Signs Temp Pulse Resp BP Pulse Ox 02/08/21 21:11 101 H 18 135/75 95 02/08/21 20:33 104 H 18 127/80 96 02/08/21 18:31 36.1 C 102 H 18 134/41 L 95 - My Orders Last 24 Hours: My Active Orders 02/08/21 19:06 Cardiac Monitoring [RC] . DIRECTED EKG Documentation Completion [RC] AM Sodium Chloride 0.9% [Saline Flush] 10 ml FLUSH ASDIRECTED PRN Sodium Chloride 0.9% [Saline Flush] 2.5 ml FLUSH ASDIRECTED PRN Saline Lock Insert [OM.PC] Stat - Assessment/Plan Last 24 Hours: My Active Orders 02/08/21 19:06 Cardiac Monitoring [RC] . DIRECTED EKG Documentation Completion [RC] AM Sodium Chloride 0.9% [Saline Flush] 10 ml FLUSH ASDIRECTED PRN Sodium Chloride 0.9% [Saline Flush] 2.5 ml FLUSH ASDIRECTED PRN Saline Lock Insert [OM.PC] Stat
--- NOTE | 2021-02-08 19:33 | CR ---
INDICATION: Dyspnea. TECHNIQUE: Single AP upright portable view. COMPARISON: 01/15/2021. FINDINGS: The heart is stable and is upper normal in size. No new mediastinal widening. There is no sign of pneumothorax. Pulmonary vessels are slightly enlarged, appearing larger since the previous exam. Slight interstitial prominence. Developing interstitial edema is not excluded. Stable stimulator device overlies the left lower chest with single lead extending across midline and overlying the right mediastinum, tip is in right peritracheal area and as seen on for lateral view from prior exam, this appears to for the superficial to the sternum. IMPRESSION: Mild pulmonary vascular enlargement and interstitial prominence. This could represent developing CHF, clinical correlation recommended. Dictated by Joshua Lazo MD @ Feb 08 2021 7:28PM Signed by Dr. Joshua Lazo @ Feb 08 2021 7:32PM
--- NOTE | 2021-02-08 20:09 | PCM.EKG ---
#1 Interpretation EKG Date: 02/08/21 Time: 18:36 Rhythm: NSR Rate (Beats/Min): 99 [place]: Normal P-Wave: Present QRS: Normal (Q wave lead III) ST-T: Normal (T wave inversions I,aVL.) QT: Normal Comparison: No Change (08/18/20) EKG Interpretation Comments: Sinus Rhythm with unchanged anterior T wave inversion
[2021-02-08 20:19] LABS: BLOOD UREA NITROGEN,BUN 11 mg/dL (7.0-18.0); CHLORIDE,CL 100 mmol/L (98-107); GLUCOSE RANDOM 108 mg/dL (74-106); POTASSIUM,K 3.2 mmol/L (3.5-5.1); SODIUM,NA 134 mmol/L (136-148)
[2021-02-08] MEDS ORDERED: Aspirin 81 MG Tab.Chew PO ONE (21:04)
[2021-02-08 21:13] VITALS: BP 135/75; PULSE 101
[2021-02-08] MEDS ORDERED: Enoxaparin 100 MG/1 ML Syringe SUBCUT ONE ×2 (23:06→23:07)
== END 2021-02-08 23:43 ==
LOC: MW.ED 17:38
DX: I11.0 Hypertensive heart disease with heart failure (principal); I50.9 Heart failure, unspecified; R79.89 Other specified abnormal findings of blood chemistry; I25.10 Atherosclerotic heart disease of native coronary artery without angina pectoris; I10 Essential (primary) hypertension; J45.909 Unspecified asthma, uncomplicated; Z88.0 Allergy status to penicillin; Z79.82 Long term (current) use of aspirin; Z79.899 Other long term (current) drug therapy; Z20.822 Contact with and (suspected) exposure to COVID-19
CPT/HCPCS: 36415; 71045; 80053; 83880; 84484; 85025; 87635; 93005; 96372; 99285; A9270; J1650; 93010; U0002

== ENCOUNTER 2021-03-11 17:42 | Emergency (ER) | payer OTHER ==
--- NOTE | 2021-03-11 18:14 | EDM.PDOC ---
ED HPI GENERAL MEDICAL PROBLEM - General Chief Complaint: Abdominal Pain Stated Complaint: CRAMPING IN INTESTINES Time Seen by Provider: 03/11/21 18:14 Source of Information: Reports: Patient History Limitations: Reports: No Limitations - History of Present Illness INITIAL COMMENTS - FREE TEXT/NARRATIVE: HISTORY AND PHYSICAL: History of present illness: The patient is a 56-year-old male who presents to the emergency department with complaints of "intestine" pain for 3 days. Patient states he has been dealing with this situation for several months now and has been seeing his primary care but has gotten nowhere. He states that he has mild nausea today but no vomiting. The patient states that sometimes his legs will go numb. But denies today his legs are numb. Earlier today his left thumb went numb but not at this present time. He states that sometimes he gets charley horses in his back. He states that he was trying to get a colonoscopy he went to his doctor and his new insurance will not agree for the procedure to be done for several weeks. They gave the patient a topical cream Diclofenac and omeprazole. The patient states he cannot reach his back to put the cream on and does not have heartburn. He does state that he has had constipation for months and has been taking laxative after laxative. He states that he has had regular stools all day today though. He states the last 2 days he has been drinking liquids because his sister told him he needed to clean out his system. Patient denies any fever, chills, headache, change in vision, syncope or near syncope. Denies any chest pain, shortness of breath or cough. Denies diarrhea or dysuria. Has not noted any blood in urine or stool. Review of systems: As per history of present illness and below otherwise all systems reviewed and negative. Past medical history: As per history of present illness and as reviewed below otherwise noncontributory. Surgical history: As per history of present illness and as reviewed below otherwise noncontributory. Social history: See social history for further information Family history: As per history of present illness and as reviewed below otherwise noncontributory. Physical exam: General: Well developed and well nourished. Alert and orientated x 3. Nontoxic in appearance and in no acute distress. Vital signs are stable and have been reviewed by me. Nursing notes were reviewed. HEENT: Atraumatic, normocephalic, pupils equal and reactive bilaterally, negative for conjunctival pallor or scleral icterus, mucous membranes moist, TMs normal bilaterally, throat clear, neck supple, nontender, trachea midline. No drooling or trismus noted. No meningeal signs. No hot potato voice noted. Lungs: Clear to auscultation bilaterally. No wheezes, rales, or rhonchi. Chest nontender. Normal work of breathing, no accessory muscles used. Heart: S1S2, sinus tach without overt murmur, gallops, or rubs. No JVD. Right lower extremity with 2+ edema and left lower extremity with 1+ edema. Abdomen: Soft, nondistended, nontender. Normoactive bowel sounds. Noted large umbilical hernia. No costovertebral tenderness. Skin: Intact, warm, dry. No lesions or rashes noted. Hematologic: No petechiae or purpra. Mucosa appropriate color and normal nail bed color and refill. Extremities: Atraumatic, moves all extremities per self without difficulty or deficits, negative for cords or calf pain. Neurovascular unremarkable. Neuro: Awake, alert, oriented. Cranial nerves II through XII unremarkable. Cerebellum unremarkable. Motor and sensory unremarkable throughout. Exam nonfocal. Psychiatric: Mood and affect are appropriate. Normal thought process. Answering questions appropriately. Notes: *This patient was seen and evaluated during the 2019 SARS-CoV-2 novel coronavirus pandemic period. Community viral transmission is ongoing at time of this encounter and the emergency department is operating under pandemic response procedures. Stated above the patient has been having trouble with his bowels for several months. He has been working with his primary care but is frustrated with the slowness of getting a colonoscopy. The patient stated after talking to his sister he thought maybe he had some kind of bowel infection. I discussed the limits of the emergency department with the patient's in testing and he was agreeable to blood work, EKG due to tachycardia, and a CT. I will give the patient IV fluids and Zofran for his nausea. The CBC: WBC 11.42. CMP: Sodium 129, potassium 3.0, chloride 91, BUN 25, glucose 125, calcium 8.4, AST 54. Radiology reading of abdomen pelvis CT: IMPRESSION: 1. Ventral abdominal wall hernia in the umbilical region which contains nonobstructed small bowel and fat. 2. Colonic diverticulosis without diverticulitis. 3. Prior cholecystectomy. Biliary system is within normal limits for postcholecystectomy state. I will treat the patient's hypokalemia with 40 mEq of potassium. I have discussed the patient's test results with him and his need for follow-up. Patient states he is unsure of how much potassium he is supposed to be taking. Instructed him to follow-up with his primary care on Sunday regarding his corrected dose. I offered the patient a furl with a tugboat captain and he declined. Stating that he would follow-up with his primary care provider. I have spoken with the patient regarding discharge and he is agreeable to the plan. I have talked with the patient about today's findings, in addition to providing specific details for plan of care. Reassessment at the time of disposition demonstrates that the patient is in no acute distress. The patient is stable for discharge, counseling was provided and we discussed in great detail signs and symptoms that would prompt them to return to the Emergency Department. Medication, follow up and supportive care measures were reviewed and discussed. Voices understanding and is agreeable to plan of care. Denies any further questions or concerns at this time. Diagnostics: CBC, CMP, EKG, CT ABD/PELVIS Therapeutics: IV fluids, Zofran, potassium 40 mEq Impression: Abdominal pain Plan: 1. You were evaluated today on an emergent basis. Your abdominal pain was evaluated with blood work, EKG, and a CT of your abdomen and pelvis. Your potassium is low and I have treated this with 40 mEq of potassium orally. You need to follow-up with your primary care regarding how much potassium you are taking and how much Lasix you are taking. Your CAT scan showed your hernia, that you have diverticulosis and that you had a prior gallbladder removal. There is no acute process that I can see. You need to follow-up with your primary care. I offered you a GI follow-up and you declined. For constipation use something mild such as MiraLAX. 2. You can alternate Tylenol and ibuprofen as needed for pain and fever management. 3. We encourage you to follow up with your primary care provider and/or recommended specialist in the next few days for re-evaluation and further care/management. 4. If your symptoms should worsen, new symptoms develop or any of the signs and symptoms we discussed should arise please return to the emergency room or call 911 (if needed). Definitive disposition and diagnosis as appropriate pending reevaluation and review of above. Middle Abdomen Pain Score (Numeric/FACES): 7 - Related Data Allergies Allergy/AdvReac Type Severity Reaction Status Date / Time Penicillins Allergy Cannot Verified 03/11/21 18:13 Remember Home Meds: Home Meds Aspirin 81 mg PO DAILY 03/20/17 [History] Furosemide 40 mg PO BID 03/20/17 [History] Lisinopril 10 mg PO BEDTIME 03/20/17 [History] Spironolactone [Aldactone] 25 mg PO DAILY 03/20/17 [History] Tamsulosin [Flomax] 0.4 mg PO DAILY 01/03/20 [History] Albuterol [Ventolin HFA] 1 puff INH ASDIRECTED PRN 07/25/20 [History] Albuterol/Ipratropium [DuoNeb 3.0-0.5 MG/3 ML] 3 ml NEB Q6HRRT PRN 07/25/20 [History] Budesonide/Formoterol Fumarate [Symbicort 160-4.5 Mcg Inhaler] 2 puff INH BID 07/25/20 [History] Albuterol [Proventil] 2.5 mg INH QIDRT PRN 5 Days #20 neb 01/15/21 [Rx] Azithromycin 500 mg PO ASDIRECTED #3 tablet 01/15/21 [Rx] Cefpodoxime [Vantin] 200 mg PO BID #10 tab 01/15/21 [Rx] Past Medical History HEENT History: Reports: Impaired Vision Other HEENT History: wears glasses Cardiovascular History: Reports: CAD, High Cholesterol, Hypertension, Other (See Below) Other Cardiovascular History: rheumatoid fever Respiratory History: Reports: Asthma, Other (See Below) Other Respiratory History: strep throat Gastrointestinal History: Reports: None Other Gastrointestinal History: States he has a haital hernia Genitourinary History: Reports: None Musculoskeletal History: Reports: None Neurological History: Reports: None Psychiatric History: Reports: None Endocrine/Metabolic History: Reports: None Insulin Pump Model and Roller Bearing Inspector: N/A Hematologic History: Reports: None Immunologic History: Reports: None Oncologic (Cancer) History: Reports: None Dermatologic History: Reports: None - Infectious Disease History Infectious Disease History: Reports: Chicken Pox, Measles, MRSA - Past Surgical History Head Surgeries/Procedures: Reports: None HEENT Surgical History: Reports: None Cardiovascular Surgical History: Reports: Other (See Below) Other Cardiovascular Surgeries/Procedures: with implanted defibrilator Respiratory Surgical History: Reports: None GI Surgical History: Reports: Hernia, Inguinal Other Male Surgeries/Procedures: Enlarged Prostate Social & Family History - Family History Family Medical History: No Pertinent Family History - Caffeine Use Caffeine Use: Reports: None Caffeine Use Comment: 1 cup daily ED ROS GENERAL - Review of Systems Review Of Systems: Comprehensive ROS is negative, except as noted in HPI. ED EXAM, GI/ABD - Physical Exam Exam: See Below (See dictation) Course - Vital Signs Last Recorded V/S: Last Vital Signs Temp 97.3 F 03/11/21 18:13 Pulse 103 H 03/11/21 18:13 Resp 18 03/11/21 18:13 BP 116/66 03/11/21 18:13 Pulse Ox 95 03/11/21 18:13 - Orders/Labs/Meds Orders: Active Orders 24 hr Category Date Time Status EKG Documentation Completion [RC] STAT Care 03/11/21 18:26 Active UA W/CECELIA RFLX IF INDICATED [URIN] Stat Lab 03/11/21 18:26 Ordered Sodium Chloride 0.9% [Saline Flush] Med 03/11/21 18:26 Active 10 ml FLUSH ASDIRECTED PRN Sodium Chloride 0.9% [Saline Flush] Med 03/11/21 18:26 Active 2.5 ml FLUSH ASDIRECTED PRN Saline Lock Insert [OM.PC] Stat Oth 03/11/21 18:26 Ordered Medication Orders Sodium Chloride (Sodium Chloride 0.9% 10 Ml Syringe) 10 ml FLUSH ASDIRECTED PRN PRN Reason: Keep Vein Open Last Admin: 03/11/21 18:45 Dose: 10 ml Documented by: CATRACHITO Sodium Chloride (Sodium Chloride 0.9% 2.5 Ml Syringe) 2.5 ml FLUSH ASDIRECTED PRN PRN Reason: Keep Vein Open Last Admin: 03/11/21 18:45 Dose: 2.5 ml Documented by: CATRACHITO Labs: Laboratory Tests 03/11/21 03/11/21 Range/Units 19:00 19:00 WBC 11.42 H (4.0-11.0) K/uL RBC 4.69 (4.50-5.90) M/uL Hgb 14.8 (13.0-17.0) g/dL Hct 42.4 (38.0-50.0) % MCV 90.4 (80.0-98.0) fL MCH 31.6 (27.0-32.0) pg MCHC 34.9 (31.0-37.0) g/dL RDW Std Deviation 42.8 (28.0-62.0) fl RDW Coeff of Lynne 13 (11.0-15.0) % Plt Count 313 (150-400) K/uL MPV 10.00 (7.40-12.00) fL Neut % (Auto) 80.5 H (48.0-80.0) % Lymph % (Auto) 12.4 L (16.0-40.0) % [place] % (Auto) 6.0 (0.0-15.0) % Eos % (Auto) 0.7 (0.0-7.0) % Baso % (Auto) 0.4 (0.0-1.5) % Neut # (Auto) 9.2 H (1.4-5.7) K/uL Lymph # (Auto) 1.4 (0.6-2.4) K/uL Swift # (Auto) 0.7 (0.0-0.8) K/uL Eos # (Auto) 0.1 (0.0-0.7) K/uL Baso # (Auto) 0.1 (0.0-0.1) K/uL Nucleated RBC % 0.0 /100WBC Nucleated RBCs # 0 K/uL Sodium 129 L (136-148) mmol/L Potassium 3.0 L (3.5-5.1) mmol/L Chloride 91 L (98-107) mmol/L Carbon Dioxide 31.0 (21.0-32.0) mmol/L BUN 25 H (7.0-18.0) mg/dL Creatinine 1.1 (0.8-1.3) mg/dL Est Cr Clr Drug Dosing 68.44 mL/min Estimated GFR (MDRD) > 60.0 ml/min Glucose 125 H (74-106) mg/dL Calcium 8.4 L (8.5-10.1) mg/dL Total Bilirubin 1.1 H (0.2-1.0) mg/dL AST 54 H (15-37) IU/L ALT 62 (14-63) IU/L Alkaline Phosphatase 77 (46-116) U/L Total Protein 8.3 H (6.4-8.2) g/dL Albumin 3.9 (3.4-5.0) g/dL Globulin 4.4 H (2.6-4.0) g/dL Albumin/Globulin Ratio 0.9 (0.9-1.6) Meds: Medications Generic Name Dose Route Start Last Admin Trade Name Freq PRN Reason Stop Dose Admin Sodium Chloride 10 ml 03/11/21 18:26 03/11/21 18:45 Sodium Chloride 0.9% 10 Ml Syringe FLUSH 10 ml ASDIRECTED PRN Administration Keep Vein Open Sodium Chloride 2.5 ml 03/11/21 18:26 03/11/21 18:45 Sodium Chloride 0.9% 2.5 Ml Syringe FLUSH 2.5 ml ASDIRECTED PRN Administration Keep Vein Open Discontinued Medications Generic Name Dose Route Start Last Admin Trade Name Freq PRN Reason Stop Dose Admin Sodium Chloride 1,000 mls @ 999 mls/hr 03/11/21 18:27 03/11/21 18:44 Normal Saline IV 03/11/21 19:27 999 mls/hr .BOLUS ONE Administration Iopamidol 100 ml 03/11/21 19:56 03/11/21 19:57 Iopamidol 755 Mg/Ml 500 Ml Multipack Bottle IVPUSH 03/11/21 19:57 100 ml ONETIME STA Administration Ondansetron HCl 4 mg 03/11/21 18:27 03/11/21 18:44 Ondansetron 4 Mg/2 Ml Sdv IVPUSH 03/11/21 18:28 4 mg ONETIME ONE Administration Potassium Chloride 40 meq 03/11/21 20:46 03/11/21 20:50 Potassium Chloride 10% 20 Meq/15 Ml Soln 30 Ml Ud Cup PO 03/11/21 20:47 40 meq ONETIME ONE Administration Departure - Departure Time of Disposition: 20:58 Disposition: Home, Self-Care 01 Condition: Good Clinical Impression: Abdominal pain Qualifiers: Abdominal location: generalized Qualified Code(s): R10.84 - Generalized abdominal pain - Discharge Information *PRESCRIPTION DRUG MONITORING PROGRAM REVIEWED*: Not Applicable *COPY OF PRESCRIPTION DRUG MONITORING REPORT IN PATIENT NADEGE: Not Applicable Instructions: Abdominal Pain, Adult, [id number] Referrals: Yimi Rodriguez MD [Primary Care Provider] - Forms: ED Department Discharge Additional Instructions: The following information is given to patients seen in the emergency department who are being discharged to home. This information is to outline your options for follow-up care. We provide all patients seen in our emergency department with a follow-up referral. The need for follow-up, as well as the timing and circumstances, are variable depending upon the specifics of your emergency department visit. If you don't have a primary care physician on staff, we will provide you with a referral. We always advise you to contact your personal physician following an emergency department visit to inform them of the circumstance of the visit and for follow-up with them and/or the need for any referrals to a consulting specialist. The emergency department will also refer you to a specialist when appropriate. This referral assures that you have the opportunity for follow-up care with a specialist. All of these measure are taken in an effort to provide you with optimal care, which includes your follow-up. Under all circumstances we always encourage you to contact your private physician who remains a resource for coordinating your care. When calling for follow-up care, please make the office aware that this follow-up is from your recent emergency room visit. If for any reason you are refused follow-up, please contact the [facility] Emergency Department at and asked to speak to the emergency department charge nurse. [facility] - Primary Care [address] [place] [address] [id number] [facility] [address] [place] [id number] Plan: 1. You were evaluated today on an emergent basis. Your abdominal pain was evaluated with blood work, EKG, and a CT of your abdomen and pelvis. Your potassium is low and I have treated this with 40 mEq of potassium orally. You need to follow-up with your primary care regarding how much potassium you are taking and how much Lasix you are taking. Your CAT scan showed your hernia, that you have diverticulosis and that you had a prior gallbladder removal. There is no acute process that I can see. You need to follow-up with your primary care. I offered you a GI follow-up and you declined. For constipation use something mild such as MiraLAX. 2. You can alternate Tylenol and ibuprofen as needed for pain and fever management. 3. We encourage you to follow up with your primary care provider and/or recommended specialist in the next few days for re-evaluation and further care/management. 4. If your symptoms should worsen, new symptoms develop or any of the signs and symptoms we discussed should arise please return to the emergency room or call 911 (if needed). Sepsis Event Note (ED) - Focused Exam Vital Signs: Vital Signs Temp Pulse Resp BP Pulse Ox 03/11/21 18:13 97.3 F 103 H 18 116/66 95 - My Orders Last 24 Hours: My Active Orders 03/11/21 18:26 EKG Documentation Completion [RC] STAT UA W/CECELIA RFLX IF INDICATED [URIN] Stat Sodium Chloride 0.9% [Saline Flush] 10 ml FLUSH ASDIRECTED PRN Sodium Chloride 0.9% [Saline Flush] 2.5 ml FLUSH ASDIRECTED PRN Saline Lock Insert [OM.PC] Stat - Assessment/Plan Last 24 Hours: My Active Orders 03/11/21 18:26 EKG Documentation Completion [RC] STAT UA W/CECELIA RFLX IF INDICATED [URIN] Stat Sodium Chloride 0.9% [Saline Flush] 10 ml FLUSH ASDIRECTED PRN Sodium Chloride 0.9% [Saline Flush] 2.5 ml FLUSH ASDIRECTED PRN Saline Lock Insert [OM.PC] Stat
[2021-03-11] MEDS ORDERED: Sodium Chloride 0.9% 10 ML Syringe FLUSH PRN (18:26)
[2021-03-11] MEDS ORDERED: Sodium Chloride 0.9% 2.5 ML Syringe FLUSH PRN (18:26)
[2021-03-11] MEDS ORDERED: Ondansetron 4 MG/2 ML SDV IVPUSH ONE (18:27)
[2021-03-11] MEDS ORDERED: Sodium Chloride 0.9% 1,000 ML IV ONE (18:27)
--- NOTE | 2021-03-11 18:42 | PCM.SN.2 ---
- Free Text/Narrative Note: EKG sinus tachycardia heart rate 108 TN 157 axis 31 there are atrial premature complexes. The T wave is slightly abnormal in the lateral limb leads. Compared to 02/08/2021 no significant change in the morphology of the QRS ST or T. Impression no obvious injury
[2021-03-11 19:23] LABS: BLOOD UREA NITROGEN,BUN 25 mg/dL (7.0-18.0); CHLORIDE,CL 91 mmol/L (98-107); GLUCOSE RANDOM 125 mg/dL (74-106); SODIUM,NA 129 mmol/L (136-148)
[2021-03-11] MEDS ORDERED: predniSONE 10 MG Tab PO STA (19:40)
[2021-03-11] MEDS ORDERED: Iopamidol 755 MG/ML 500 ML Multipack Bottle IVPUSH STA (19:56)
--- NOTE | 2021-03-11 20:24 | CT ---
HISTORY: Abdominal pain. TECHNIQUE: Intravenous contrast enhanced CT of the abdomen and pelvis. 100 mL of Isovue-370 intravenous contrast administered. COMPARISON: No prior. FINDINGS: There is no liver mass. Patient is status postcholecystectomy. Biliary system is within normal limits for postcholecystectomy state. Spleen size within normal limits. Adrenal glands are normal. No focal pancreatic abnormality. Symmetric nephrograms. No renal mass or hydronephrosis. No obstructive urinary calculus. Urinary bladder is not overly distended. Prostate is prominent in size. There are prostatic calcifications which may be postinflammatory. - No small bowel obstruction. No appendicitis. Colonic diverticulosis without diverticulitis. There is a umbilical region hernia which contains nonobstructed small bowel and fat. The orifice of the hernia measures approximately 3.3 cm craniocaudad by 4.5 cm in right/left dimension. No fluid collection or free intraperitoneal air. No abdominal aortic aneurysm. - No consolidation within the lung bases nor pleural effusion. - Degenerative changes of the spine. No acute fractures. ICD. IMPRESSION: 1. Ventral abdominal wall hernia in the umbilical region which contains nonobstructed small bowel and fat. 2. Colonic diverticulosis without diverticulitis. 3. Prior cholecystectomy. Biliary system is within normal limits for postcholecystectomy state. Please note that all CT scans at this facility use dose modulation, iterative reconstruction, and/or weight-based dosing when appropriate to reduce radiation dose to as low as reasonably achievable. Dictated by Ulises Dumont MD @ 03/11/2021 8:23:[address] Ulises Dumont @ Mar 11 2021 8:23PM
[2021-03-11] MEDS ORDERED: Potassium Chloride 10% 20 MEQ/15 ML Soln 30 ML UD Cup PO ONE (20:46)
[2021-03-11 21:13] VITALS: BP 134/75; PULSE 76
== END 2021-03-11 21:13 | disposition home or self-care (01) ==
LOC: MW.ED 17:42
DX: R10.84 Generalized abdominal pain (principal); I25.10 Atherosclerotic heart disease of native coronary artery without angina pectoris; E78.00 Pure hypercholesterolemia, unspecified; I10 Essential (primary) hypertension; J45.909 Unspecified asthma, uncomplicated; Z88.0 Allergy status to penicillin; Z79.82 Long term (current) use of aspirin
CPT/HCPCS: 36415; 74177; 80053; 85025; 93005; 96374; 99284; A9270; J2405; J7030; Q9967; 93010

== ENCOUNTER 2021-08-16 19:36 | Emergency (ER) | payer OTHER ==
[2021-08-16] MEDS ORDERED: Morphine 4 MG/ML Syringe IVPUSH ONE (21:27)
[2021-08-16] MEDS ORDERED: Morphine 4 MG/ML VIAL ONE ×2 (21:29→21:34)
[2021-08-16 21:40] LABS: BLOOD UREA NITROGEN,BUN 39 mg/dL (7.0-18.0); CARBON DIOXIDE,CO2 30.2 mmol/L (21.0-32.0); CHLORIDE,CL 89 mmol/L (98-107); GLUCOSE RANDOM 113 mg/dL (74-106); POTASSIUM,K 3.3 mmol/L (3.5-5.1); SODIUM,NA 128 mmol/L (136-148)
[2021-08-16] MEDS ORDERED: Iopamidol 755 MG/ML 500 ML Multipack Bottle IVPUSH STA (22:35)
--- NOTE | 2021-08-17 00:04 | CT ---
INDICATION: Hernia pain. COMPARISON: CT of the abdomen and pelvis without contrast from 03/11/2021. TECHNIQUE: CT examination of the abdomen and pelvis was performed with the uneventful intravenous administration of 100 cc of Isovue 370 while 3 mm thick axial sections were obtained from the lung bases through the pubic symphysis. Oral contrast was not administered. Please note that all CT scans at this facility use dose modulation, iterative reconstruction, and/or weight-based dosing when appropriate to reduce radiation dose to as low as reasonably achievable. FINDINGS: There is new partial small bowel obstruction produced by the moderate-sized periumbilical hernia with prominent dilatation of the mid small bowel extending to the hernia. There does not appear to be projection of the loop of small bowel into the hernia sac, but the obstruction occurs immediately adjacent to the neck of the hernia. There is new moderate inflammatory stranding and a small amount of fluid within the hernia sac, suggesting infarction or ischemia of the fat within the hernia sac. There hernia neck measures 3.8 centimeters in diameter, similar to the previous study. The hernia sac measures 10.7 x 6.1 x 11.1 centimeters, also similar to the previous study. In the abdomen, the liver, spleen, pancreas, and adrenals are normal in appearance. The kidneys are normal in appearance. Clips are again seen in the gall bladder fossa from cholecystectomy. There is no sign of biliary ductal dilatation. The abdominal aorta is normal in caliber with no sign of dilatation. There is no sign of retroperitoneal mass or adenopathy. The stomach, loops of small bowel, and colon in the abdomen are normal in appearance. In the pelvis, the appendix is normal in appearance with no sign of inflammatory process. The loops of small bowel and colon in the pelvis are normal in appearance. The prostate is normal in appearance. The urinary bladder is normal in appearance. There is no sign of pelvic or inguinal mass or adenopathy. There is no sign of free air or free fluid in the abdomen or pelvis. The lung bases are clear. The osseous structures are normal in appearance for the patient`s age. IMPRESSION: New partial small bowel obstruction with point of transition immediately adjacent to the neck of the moderate sized periumbilical hernia. There has been reduction of the previously seen loop of small bowel protruding into the hernia sac, with new infarction or ischemia of the fat within the hernia sac. CT of the abdomen shows changes of cholecystectomy with no sign of biliary ductal dilatation. CT of the pelvis shows no additional abnormality. Please note that all CT scans at this facility use dose modulation, iterative reconstruction, and/or weight-based dosing when appropriate to reduce radiation dose to as low as reasonably achievable. Dictated by Scotty Argueta MD @ 08/17/2021 12:02:32 AM (Electronically Signed)
[2021-08-17 00:20] VITALS: BP 92/57; PULSE 78
[2021-08-17] MEDS ORDERED: Acetaminophen/HYDROcodone 325-5 MG Tab PO ONE (00:35)
--- NOTE | 2021-08-17 00:41 | EDM.PDOC ---
ED HPI GENERAL MEDICAL PROBLEM - General Chief Complaint: Abdominal Pain Stated Complaint: HERNIA PAIN Time Seen by Provider: 08/16/21 21:09 - History of Present Illness INITIAL COMMENTS - FREE TEXT/NARRATIVE: CHIEF COMPLAINT(S): "I have got a couple of hernias." HISTORY OF PRESENT ILLNESS: This is a 56-year-old man and with a past medical history of hernia, hypertension, COPD/asthma who comes to the emergency department with a chief complaint of "I have got a couple of hernias." The patient states that he has a couple of hernias and they have been flaring up for the last 3 days.. He states that initially it was intermittent pain located throughout his abdomen and near where his periumbilical hernia is. He states that he has now constant pain rated 8 out of 10 with radiation to his back. He states this is located around his periumbilical area. He denies any vomiting but states that he does have some nausea and some loose stools. He denies any melena or hematochezia. He states that he has not yet taken anything for the pain. He denies any chest pain, shortness of breath or fever. He denies any skin changes. He states that he was seen by his primary care physician 2 days ago and did get a referral for general surgery in [place] to have these hernias repaired. He denies any other symptoms. REVIEW OF SYSTEMS: Constitutional: Denies fever, chills. Eyes: Denies eye pain Ears, Nose, Mouth, & Throat: Denies earache Cardiovascular: Denies chest pain Respiratory: Denies shortness of breath Gastrointestinal: Positive for abdominal pain, nausea, diarrhea. Denies vomiting, hematochezia, hematemesis, bilious emesis, melena genitourinary: Denies hematuria Skin:Denies a rash MSK: Denies joint pain Neurological: Denies blurred vision Psychiatric: Denies depression PAST MEDICAL HISTORY: As per history of present illness and as reviewed below otherwise noncontributory. SURGICAL HISTORY: As per history of present illness and as reviewed below otherwise noncontributory. SOCIAL HISTORY: As per history of present illness and as reviewed below otherwise noncontributory. FAMILY HISTORY: As per history of present illness and as reviewed below otherwise noncontributory. EXAMINATION OF ORGAN SYSTEMS/BODY AREAS: Constitutional: Blood pressure was 94/60, heart rate 84, respiratory rate 20 with an oxygen saturation 95% on room air. Temperature 35.3 General: Well-appearing man who is in no acute distress Psychiatric: Appropriate mood and affect. Eyes: No scleral icterus or conjunctival erythema ENMT: Moist mucous membranes. No pharyngeal erythema Cardiovascular: Regular, rate, and rhythm. No gallops, murmurs, or rubs. Bilateral upper extremity pulses symmetric and intact. No peripheral edema. No JVD. Respiratory: Lungs clear to auscultation bilaterally. No wheezes, rales, or rho nchi. Gastrointestinal: Soft, nondistended, tenderness to palpation throughout the abdomen. No rebound or guarding. There is a periumbilical hernia which is easily reducible. No overlying skin changes. Mildly hyperactive bowel sounds. Genitourinary: No suprapubic tenderness Musculoskeletal: Normal range of motion. Skin: No lesions or abrasions. Neurological: Alert, GCS 15 MEDICAL DECISION MAKING AND COURSE IN THE ED WITH INTERPRETATION/REVIEW OF DIAGNOSTIC STUDIES: This is a 56-year-old man with a past medical history of periumbilical hernia, hypertension who comes to the emergency department with 3 days of abdominal pain with an easily reducible periumbilical hernia with no overlying skin changes. Given the hyperactive bowel sounds bowel obstruction is a consideration. Will obtain a CT abdomen pelvis which will further evaluate for any strangulation of the hernia. We will provide the patient with 4 mg of IV morphine for pain relief and will also obtain CBC CMP and a Covid swab. Patient was amenable to this plan. Laboratory: CBC reveals a leukocytosis of 12.11 with neutrophilic predominance without any left shift. CMP reveals hyponatremia 128, hypokalemia at 3.3, hy pochloremia 89, elevated BUN at 39, hyperglycemia 113 otherwise unremarkable. This is unchanged from prior. Covid is negative. The radiological images were viewed by myself along with reading the report from the radiologist. CT abdomen pelvis with contrast reveals new partial small bowel obstruction with point transition immediately adjacent to the neck of the moderately sized periumbilical hernia. There has been reduction of the previously seen loop of small bowel with a new infarction or ischemia of the fat within that hernia sac. Otherwise no acute intra-abdominal process. After imaging I did contact Dr. Orozco who recommended bowel rest with fluid hydration, pain management. At this time we do not have any observation beds and given that the patient is able to tolerate p.o. home monitoring at this time is appropriate. I do agree with this plan. I did discuss this with the patient he was amenable to discharge at this time and had no further questions. He is to contact general surgery to schedule a follow-up appointment within the next 1 to 2 days here in [place]. DISPOSITION: The patient was discharged home in stable condition. The patient will follow up with general surgery within the next 1 to 2 days CONDITION: Fair PROCEDURES: None FINAL IMPRESSION(S)/DIAGNOSES: 1. Acute partial small bowel obstruction Brain Dodd M.D. Abdomen Pain Score (Numeric/FACES): 4 - Related Data Allergies Allergy/AdvReac Type Severity Reaction Status Date / Time Penicillins Allergy Cannot Verified 08/16/21 20:00 Remember Home Meds: Home Meds Aspirin 81 mg PO DAILY 03/20/17 [History] Furosemide 40 mg PO BID 03/20/17 [History] Lisinopril 10 mg PO BEDTIME 03/20/17 [History] Spironolactone [Aldactone] 25 mg PO DAILY 03/20/17 [History] Tamsulosin [Flomax] 0.4 mg PO DAILY 01/03/20 [History] Albuterol [Ventolin HFA] 1 puff INH ASDIRECTED PRN 07/25/20 [History] Albuterol/Ipratropium [DuoNeb 3.0-0.5 MG/3 ML] 3 ml NEB Q6HRRT PRN 07/25/20 [History] Budesonide/Formoterol Fumarate [Symbicort 160-4.5 Mcg Inhaler] 2 puff INH BID 07/25/20 [History] Albuterol [Proventil] 2.5 mg INH QIDRT PRN 5 Days #20 neb 01/15/21 [Rx] Cefpodoxime [Vantin] 200 mg PO BID #10 tab 01/15/21 [Rx] Hydrocodone/Acetaminophen [HYDROcodone-Acetaminophen 5-325 MG] 1 each PO Q6H PRN #10 tab 08/17/21 [Rx] Past Medical History HEENT History: Reports: Impaired Vision Other HEENT History: wears glasses Cardiovascular History: Reports: CAD, High Cholesterol, Hypertension, Other (See Below) Other Cardiovascular History: rheumatoid fever Respiratory History: Reports: Asthma, Other (See Below) Other Respiratory History: strep throat Gastrointestinal History: Reports: None Other Gastrointestinal History: States he has a haital hernia Genitourinary History: Reports: None Musculoskeletal History: Reports: None Neurological History: Reports: None Psychiatric History: Reports: None Endocrine/Metabolic History: Reports: None Insulin Pump Model and Nutritional Chemist: N/A Hematologic History: Reports: None Immunologic History: Reports: None Oncologic (Cancer) History: Reports: None Dermatologic History: Reports: None - Infectious Disease History Infectious Disease History: Reports: Chicken Pox, Measles, MRSA - Past Surgical History Head Surgeries/Procedures: Reports: None HEENT Surgical History: Reports: None Cardiovascular Surgical History: Reports: Other (See Below) Other Cardiovascular Surgeries/Procedures: with implanted defibrilator Respiratory Surgical History: Reports: None GI Surgical History: Reports: Hernia, Inguinal Other Male Surgeries/Procedures: Enlarged Prostate Social & Family History - Family History Family Medical History: No Pertinent Family History - Tobacco Use Second Hand Smoke Exposure: No - Caffeine Use Caffeine Use: Reports: None Caffeine Use Comment: 1 cup daily - Recreational Drug Use Recreational Drug Use: No ED ROS GENERAL - Review of Systems Review Of Systems: See Below ED EXAM, GENERAL - Physical Exam Exam: See Below Course - Vital Signs Last Recorded V/S: Last Vital Signs Temp 36.1 C 08/17/21 00:15 Pulse 78 08/17/21 00:15 Resp 18 08/17/21 00:15 BP 92/57 L 08/17/21 00:15 Pulse Ox 97 08/17/21 00:15 - Orders/Labs/Meds Labs: Laboratory Tests 08/16/21 08/16/21 08/16/21 Range/Units 21:10 21:10 21:20 WBC 12.11 H (4.0-11.0) K/uL RBC 4.98 (4.50-5.90) M/uL Hgb 15.0 (13.0-17.0) g/dL Hct 42.8 (38.0-50.0) % MCV 85.9 (80.0-98.0) fL MCH 30.1 (27.0-32.0) pg MCHC 35.0 (31.0-37.0) g/dL RDW Std Deviation 41.3 (28.0-62.0) fl RDW Coeff of Lynne 13 (11.0-15.0) % Plt Count 325 (150-400) K/uL MPV 10.00 (7.40-12.00) fL Neut % (Auto) 81.1 H (48.0-80.0) % Lymph % (Auto) 10.1 L (16.0-40.0) % Alcorn % (Auto) 7.9 (0.0-15.0) % Eos % (Auto) 0.7 (0.0-7.0) % Baso % (Auto) 0.2 (0.0-1.5) % Neut # (Auto) 9.8 H (1.4-5.7) K/uL Lymph # (Auto) 1.2 (0.6-2.4) K/uL Alcorn # (Auto) 1.0 H (0.0-0.8) K/uL Eos # (Auto) 0.1 (0.0-0.7) K/uL Baso # (Auto) 0.0 (0.0-0.1) K/uL Nucleated RBC % 0.0 /100WBC Nucleated RBCs # 0 K/uL Sodium 128 L (136-148) mmol/L Potassium 3.3 L (3.5-5.1) mmol/L Chloride 89 L (98-107) mmol/L Carbon Dioxide 30.2 (21.0-32.0) mmol/L BUN 39 H (7.0-18.0) mg/dL Creatinine 1.1 (0.8-1.3) mg/dL Est Cr Clr Drug Dosing 66.06 mL/min Estimated GFR (MDRD) > 60.0 ml/min Glucose 113 H (74-106) mg/dL Calcium 9.0 (8.5-10.1) mg/dL Total Bilirubin 0.7 (0.2-1.0) mg/dL AST 31 (15-37) IU/L ALT 31 (14-63) IU/L Alkaline Phosphatase 75 (46-116) U/L Total Protein 7.9 (6.4-8.2) g/dL Albumin 3.4 (3.4-5.0) g/dL Globulin 4.5 H (2.6-4.0) g/dL Albumin/Globulin Ratio 0.8 L (0.9-1.6) SARS-CoV-2 RNA (OMEGA) NEGATIVE (NEGATIVE) Meds: Medications Discontinued Medications Generic Name Dose Route Start Last Admin Trade Name Rico PRN Reason Stop Dose Admin Hydrocodone Bitart/Acetaminophen 1 tab 08/17/21 00:35 08/17/21 00:49 Acetaminophen/Hydrocodone 325-5 Mg Tab PO 08/17/21 00:36 1 tab ONETIME ONE Administration Iopamidol 100 ml 08/16/21 22:35 08/16/21 22:36 Iopamidol 755 Mg/Ml 500 Ml Multipack Bottle IVPUSH 08/16/21 22:36 100 ml ONETIME STA Administration Morphine Sulfate 4 mg 08/16/21 21:27 08/16/21 21:34 Morphine 4 Mg/Ml Syringe IVPUSH 08/16/21 21:28 4 mg ONETIME ONE Administration Morphine Sulfate Confirm 08/16/21 21:29 08/16/21 21:50 Morphine 4 Mg/Ml Vial Administered 08/16/21 21:30 Not Given Dose 4 mg .ROUTE .STK-MED ONE Morphine Sulfate Confirm 08/16/21 21:34 08/16/21 21:51 Morphine 4 Mg/Ml Vial Administered 08/16/21 21:35 Not Given Dose 4 mg .ROUTE .STK-MED ONE Departure - Departure Time of Disposition: 00:39 Disposition: Home, Self-Care 01 Condition: Fair Clinical Impression: Partial small bowel obstruction - Discharge Information *PRESCRIPTION DRUG MONITORING PROGRAM REVIEWED*: No *COPY OF PRESCRIPTION DRUG MONITORING REPORT IN PATIENT NADEGE: No Prescriptions: Hydrocodone/Acetaminophen [HYDROcodone-Acetaminophen 5-325 MG] 1 each PO Q6H PRN #10 tab PRN Reason: Abdominal Pain Instructions: Hernia, Adult, Bowel Obstruction, [id number], Abdominal Pain, Adult, [id number] Referrals: Yimi Rodriguez MD [Primary Care Provider] - Forms: ED Department Discharge Additional Instructions: You were evaluated today on an emergent basis. At this time your CT did show evidence of the hernia without any bowel in the hernia area. There was evidence of a partial bowel obstruction. As discussed we do not have any observation beds however in discussion with the surgeon we recommend fluid hydration by mouth and pain control. Please use the Sophia as needed for pain and follow-up with surgery within 1 to 2 days. Please contact the number below for an appointment. If you have any worsening abdominal pain, vomiting, blood in your stool or vomit I would like you to return to the emergency department. In addition if the area of your hernia the skin changes color I would like you to also return to the emergency department. [facility] - General Surgery Professional Building [address] [place] [address], [address] [place] [address] The patient is informed of any results of their evaluation and diagnostic workup and all questions are answered. They are given discharge instructions and return precautions. The patient is stable for discharge. The patient states they understand and agree with the plan and that they will return if their symptoms get worse or if they have any new concerns. The following information is given to patients seen in the emergency department who are being discharged to home. This information is to outline your options for follow-up care. We provide all patients seen in our emergency department with a follow-up referral. The need for follow-up, as well as the timing and circumstances, are variable depending upon the specifics of your emergency department visit. If you don't have a primary care physician on staff, we will provide you with a referral. We always advise you to contact your personal physician following an emergency department visit to inform them of the circumstance of the visit and f or follow-up with them and/or the need for any referrals to a consulting specialist. The emergency department will also refer you to a specialist when appropriate. This referral assures that you have the opportunity for follow-up care with a specialist. All of these measure are taken in an effort to provide you with optimal care, which includes your follow-up. Under all circumstances we always encourage you to contact your private physician who remains a resource for coordinating your care. When calling for follow-up care, please make the office aware that this follow-up is from your recent emergency room visit. If for any reason you are refused follow-up, please contact the [facility] Emergency Department at and asked to speak to the emergency department charge nurse. Sepsis Event Note (ED) - Evaluation Sepsis Screening Result: No Definite Risk - Focused Exam Vital Signs: Vital Signs Temp Pulse Resp BP Pulse Ox 08/17/21 00:15 36.1 C 78 18 92/57 L 97 10/26/21 19:53 35.3 C L 84 20 94/60 95
== END 2021-08-17 00:50 | disposition home or self-care (01) ==
LOC: MW.ED 19:36
DX: K56.600 Partial intestinal obstruction, unspecified as to cause (principal); I25.10 Atherosclerotic heart disease of native coronary artery without angina pectoris; I10 Essential (primary) hypertension; J45.909 Unspecified asthma, uncomplicated; Z88.0 Allergy status to penicillin; Z79.82 Long term (current) use of aspirin; Z79.899 Other long term (current) drug therapy; Z20.822 Contact with and (suspected) exposure to COVID-19
CPT/HCPCS: 36415; 74177; 80053; 85025; 87635; 96374; 99284; A9270; J2270; Q9967; U0002

== ENCOUNTER 2021-11-02 10:20 | Emergency (ER) | payer BC ==
[2021-11-02] MEDS ORDERED: Sodium Chloride 0.9% 10 ML Syringe FLUSH PRN (10:26)
[2021-11-02] MEDS ORDERED: Sodium Chloride 0.9% 2.5 ML Syringe FLUSH PRN (10:26)
[2021-11-02] MEDS ORDERED: Furosemide 40 MG/4 ML VIAL IVPUSH ONE (10:28)
[2021-11-02 11:24] LABS: BLOOD UREA NITROGEN,BUN 14 mg/dL (7.0-18.0); CARBON DIOXIDE,CO2 26.4 mmol/L (21.0-32.0); CHLORIDE,CL 98 mmol/L (98-107); GLUCOSE RANDOM 116 mg/dL (74-106); POTASSIUM,K 3.6 mmol/L (3.5-5.1); SODIUM,NA 136 mmol/L (136-148)
[2021-11-02 12:02] LABS: CORONAVIRUS COVID-19 NAA NEGATIVE (NEGATIVE); INFLUENZA A NAA POSITIVE (NEGATIVE); INFLUENZA B NAA NEGATIVE (NEGATIVE)
[2021-11-02 12:40] VITALS: BP 100/58
[2021-11-02 13:23] VITALS: PULSE 70
== END 2021-11-02 13:27 | disposition home or self-care (01) ==
LOC: MW.ED 10:20
DX: J10.1 Influenza due to other identified influenza virus with other respiratory manifestations (principal); I11.0 Hypertensive heart disease with heart failure; I50.9 Heart failure, unspecified; I25.10 Atherosclerotic heart disease of native coronary artery without angina pectoris; J45.909 Unspecified asthma, uncomplicated; Z88.0 Allergy status to penicillin; Z79.899 Other long term (current) drug therapy; Z20.822 Contact with and (suspected) exposure to COVID-19
CPT/HCPCS: 0240U; 36415; 80053; 81001; 83735; 83880; 84484; 85025; 93005; 96374; 99285; J1940

== ENCOUNTER 2022-02-09 14:03 | Emergency (ER) | payer BC ==
[2022-02-09] MEDS ORDERED: Sodium Chloride 0.9% 2.5 ML Syringe FLUSH PRN (14:18)
[2022-02-09] MEDS ORDERED: Sodium Chloride 0.9% 10 ML Syringe FLUSH PRN (14:18)
[2022-02-09] MEDS ORDERED: Ondansetron 4 MG/2 ML SDV IVPUSH ONE (14:30)
[2022-02-09 15:19] LABS: BLOOD UREA NITROGEN,BUN 17 mg/dL (7.0-18.0); CARBON DIOXIDE,CO2 27.7 mmol/L (21.0-32.0); CHLORIDE,CL 90 mmol/L (98-107); GLUCOSE RANDOM 115 mg/dL (74-106); LIPASE 181 U/L (73-393); POTASSIUM,K 3.9 mmol/L (3.5-5.1); SODIUM,NA 127 mmol/L (136-148)
[2022-02-09] MEDS ORDERED: Iopamidol 755 MG/ML 500 ML Multipack Bottle IVPUSH STA (16:35)
[2022-02-09] MEDS ORDERED: Furosemide 20 MG/2 ML VIAL IVPUSH STA (17:23)
[2022-02-09 17:55] VITALS: BP 107/76; PULSE 96
[2022-02-09 18:02] LABS: CORONAVIRUS COVID-19 NAA NEGATIVE (NEGATIVE); INFLUENZA A NAA NEGATIVE (NEGATIVE); INFLUENZA B NAA NEGATIVE (NEGATIVE)
== END 2022-02-09 19:11 | disposition home or self-care (01) ==
LOC: MW.ED 14:03
DX: I11.0 Hypertensive heart disease with heart failure (principal); I50.9 Heart failure, unspecified; R74.8 Abnormal levels of other serum enzymes; R60.0 Localized edema; I25.10 Atherosclerotic heart disease of native coronary artery without angina pectoris; J45.909 Unspecified asthma, uncomplicated; Z88.0 Allergy status to penicillin; Z20.822 Contact with and (suspected) exposure to COVID-19; Z79.899 Other long term (current) drug therapy
CPT/HCPCS: 0240U; 36415; 71045; 71275; 80053; 83690; 83880; 84484; 85025; 85379; 85610; 93005; 96374; 96375; 99285; J1940; J2405; J3490; Q9967; 99284

== ENCOUNTER 2023-07-25 16:01 | Emergency (ER) | payer BC ==
[2023-07-25 16:37] VITALS: BP 98/58; PULSE 98
== END 2023-07-25 18:25 | disposition home or self-care (01) ==
LOC: MW.ED 16:01
DX: L03.115 Cellulitis of right lower limb (principal); I25.10 Atherosclerotic heart disease of native coronary artery without angina pectoris; I10 Essential (primary) hypertension; J45.909 Unspecified asthma, uncomplicated; Z88.0 Allergy status to penicillin; Z79.899 Other long term (current) drug therapy
CPT/HCPCS: 93970; 93970-26; 99283

== ENCOUNTER 2023-09-07 09:00 | Observation (INO) | payer BC ==
[2023-09-07] MEDS ORDERED: Sodium Chloride 0.9% 2.5 ML Syringe FLUSH PRN (09:52)
[2023-09-07] MEDS ORDERED: Sodium Chloride 0.9% 10 ML Syringe FLUSH PRN (09:52)
[2023-09-07 12:12] LABS: BASOPHILS ABSOLUTE AUTO 0.06 K/uL (0.00-0.20); BASOPHILS PERCENT AUTO 0.7 % (0.0-1.0); EOSINOPHILS ABSOLUTE AUTO 0.13 K/uL (0.00-0.45); EOSINOPHILS PERCENT AUTO 1.5 % (0.0-6.0); HEMATOCRIT 40.3 % (42.0-52.0); HEMOGLOBIN 13.7 g/dL (14.0-18.0); IMMATURE GRAN ABSOLUTE AUTO 0.08 K/uL (0.00-0.05); IMMATURE GRAN PERCENT AUTO 0.9 % (0.0-0.4); LYMPHOCYTES ABSOLUTE AUTO 0.64 K/uL (1.00-4.80); LYMPHOCYTES PERCENT AUTO 7.2 % (24.0-44.0); MEAN CORPUSCULAR HEMOGLOBIN 29.1 pg (28.0-32.0); MEAN CORPUSCULAR VOLUME 85.7 fL (83.0-99.0); MEAN PLATELET VOLUME 9.2 fL (9.4-12.4); MONOCYTES ABSOLUTE AUTO 0.51 K/uL (0.00-0.80); MONOCYTES PERCENT AUTO 5.8 % (0.0-8.0); NEUTROPHILS ABSOLUTE AUTO 7.43 K/uL (1.80-7.70); NEUTROPHILS PERCENT AUTO 83.9 % (41.0-71.0); PLATELET COUNT,PLT 223 K/uL (150-400); WHITE BLOOD CELL COUNT,WBC 8.85 K/uL (3.9-11.3)
[2023-09-07 12:44] LABS: A/G RATIO 0.8 (0.9-1.6); ALBUMIN 3.6 g/dL (3.4-5.0); BILIRUBIN TOTAL 0.7 mg/dL (0.2-1.0); CALCIUM 9.1 mg/dL (8.5-10.1); CARBON DIOXIDE,CO2 26.8 mmol/L (21.0-32.0); CREATININE 0.9 mg/dL (0.8-1.3); EST CRCL DRUG DOSING (CG) 78.77 mL/min; MAGNESIUM 2.3 mg/dL (1.8-2.4); POTASSIUM,K 4.1 mmol/L (3.5-5.1); PROTEIN TOTAL,TP 8.3 g/dL (6.4-8.2)
[2023-09-07] MEDS ORDERED: Furosemide 40 MG/4 ML VIAL IVPUSH ONE (13:16)
[2023-09-07] MEDS: Furosemide 40 MG/4 ML VIAL IVPUSH SCH ×2 (15:54→21:59)
[2023-09-07] MEDS: Enoxaparin 40 MG/0.4 ML Syringe SUBCUT SCH (16:02)
[2023-09-07] MEDS: Sodium Chloride 1 GM Tab PO SCH (16:05)
[2023-09-07] MEDS ORDERED: Furosemide 40 MG/4 ML VIAL IVPUSH SCH (17:00)
[2023-09-07] MEDS: Docusate Sodium 100 MG Cap PO SCH (21:59)
[2023-09-07] MEDS: Tamsulosin 0.4 MG Cap.ER PO SCH (21:59)
[2023-09-08] MEDS: Albuterol 8 GM Inhaler INH PRN (03:39)
[2023-09-08] MEDS: Furosemide 40 MG/4 ML VIAL IVPUSH SCH ×3 (05:32→21:02)
[2023-09-08 05:46] LABS: BASOPHILS ABSOLUTE AUTO 0.04 K/uL (0.00-0.20); BASOPHILS PERCENT AUTO 0.6 % (0.0-1.0); EOSINOPHILS ABSOLUTE AUTO 0.11 K/uL (0.00-0.45); EOSINOPHILS PERCENT AUTO 1.6 % (0.0-6.0); HEMATOCRIT 36.6 % (42.0-52.0); IMMATURE GRAN ABSOLUTE AUTO 0.06 K/uL (0.00-0.05); IMMATURE GRAN PERCENT AUTO 0.9 % (0.0-0.4); LYMPHOCYTES PERCENT AUTO 8.8 % (24.0-44.0); MEAN CORPUSCULAR HEMOGLOBIN 28.2 pg (28.0-32.0); MEAN CORPUSCULAR HGB CONC 32.8 g/dL (32.0-36.0); MEAN CORPUSCULAR VOLUME 86.1 fL (83.0-99.0); MEAN PLATELET VOLUME 9.3 fL (9.4-12.4); MONOCYTES ABSOLUTE AUTO 0.49 K/uL (0.00-0.80); MONOCYTES PERCENT AUTO 7.2 % (0.0-8.0); NEUTROPHILS ABSOLUTE AUTO 5.54 K/uL (1.80-7.70); NEUTROPHILS PERCENT AUTO 80.9 % (41.0-71.0); PLATELET COUNT,PLT 210 K/uL (150-400); RED BLOOD CELL COUNT 4.25 M/uL (4.52-5.90); WHITE BLOOD CELL COUNT,WBC 6.84 K/uL (3.9-11.3)
[2023-09-08 06:19] LABS: A/G RATIO 0.8 (0.9-1.6); ALBUMIN 3.3 g/dL (3.4-5.0); BILIRUBIN TOTAL 0.9 mg/dL (0.2-1.0); CALCIUM 8.9 mg/dL (8.5-10.1); CARBON DIOXIDE,CO2 29.6 mmol/L (21.0-32.0); CREATININE 0.9 mg/dL (0.8-1.3); EST CRCL DRUG DOSING (CG) 78.77 mL/min; MAGNESIUM 2.1 mg/dL (1.8-2.4); POTASSIUM,K 4.2 mmol/L (3.5-5.1); PROTEIN TOTAL,TP 7.4 g/dL (6.4-8.2)
[2023-09-08] MEDS: Docusate Sodium 100 MG Cap PO SCH ×2 (08:40→21:03)
[2023-09-08] MEDS: Aspirin 81 MG Tab.Chew PO SCH (08:40)
[2023-09-08] MEDS: Sodium Chloride 1 GM Tab PO SCH (08:40)
[2023-09-08] MEDS: Enoxaparin 40 MG/0.4 ML Syringe SUBCUT SCH (15:57)
[2023-09-08] MEDS: Tamsulosin 0.4 MG Cap.ER PO SCH (21:02)
[2023-09-09] MEDS: Albuterol 8 GM Inhaler INH PRN (02:32)
[2023-09-09] MEDS: Furosemide 40 MG/4 ML VIAL IVPUSH SCH (05:21)
[2023-09-09 05:56] LABS: BASOPHILS ABSOLUTE AUTO 0.05 K/uL (0.00-0.20); BASOPHILS PERCENT AUTO 0.8 % (0.0-1.0); EOSINOPHILS ABSOLUTE AUTO 0.11 K/uL (0.00-0.45); EOSINOPHILS PERCENT AUTO 1.7 % (0.0-6.0); HEMATOCRIT 36.3 % (42.0-52.0); HEMOGLOBIN 12.1 g/dL (14.0-18.0); IMMATURE GRAN ABSOLUTE AUTO 0.07 K/uL (0.00-0.05); IMMATURE GRAN PERCENT AUTO 1.1 % (0.0-0.4); LYMPHOCYTES ABSOLUTE AUTO 0.55 K/uL (1.00-4.80); LYMPHOCYTES PERCENT AUTO 8.3 % (24.0-44.0); MEAN CORPUSCULAR HEMOGLOBIN 28.7 pg (28.0-32.0); MEAN CORPUSCULAR HGB CONC 33.3 g/dL (32.0-36.0); MEAN CORPUSCULAR VOLUME 86.2 fL (83.0-99.0); MEAN PLATELET VOLUME 9.4 fL (9.4-12.4); MONOCYTES ABSOLUTE AUTO 0.45 K/uL (0.00-0.80); MONOCYTES PERCENT AUTO 6.8 % (0.0-8.0); NEUTROPHILS ABSOLUTE AUTO 5.39 K/uL (1.80-7.70); NEUTROPHILS PERCENT AUTO 81.3 % (41.0-71.0); PLATELET COUNT,PLT 226 K/uL (150-400); RED BLOOD CELL COUNT 4.21 M/uL (4.52-5.90); WHITE BLOOD CELL COUNT,WBC 6.62 K/uL (3.9-11.3)
[2023-09-09 06:25] LABS: CALCIUM 8.9 mg/dL (8.5-10.1); CARBON DIOXIDE,CO2 30.3 mmol/L (21.0-32.0); CREATININE 0.9 mg/dL (0.8-1.3); EST CRCL DRUG DOSING (CG) 78.77 mL/min; POTASSIUM,K 3.5 mmol/L (3.5-5.1)
[2023-09-09] MEDS: Aspirin 81 MG Tab.Chew PO SCH (09:02)
[2023-09-09] MEDS: Docusate Sodium 100 MG Cap PO SCH (09:02)
[2023-09-09] MEDS: Sodium Chloride 1 GM Tab PO SCH (09:02)
[2023-09-09] MEDS ORDERED: Potassium Chloride 20 MEQ Tab.ER PO ONE ×2 (09:30→10:15)
[2023-09-09 15:06] VITALS: BP 102/58; PULSE 83
== END 2023-09-09 13:27 | disposition home or self-care (01) ==
LOC: MW.ED 09:00 → MW.MS 13:15
PROVIDERS: ADMIT Internal Medicine; ATTEND Internal Medicine
DX: E87.1 Hypo-osmolality and hyponatremia (principal); I21.A1 Myocardial infarction type 2; I11.0 Hypertensive heart disease with heart failure; I50.23 Acute on chronic systolic (congestive) heart failure; J44.9 Chronic obstructive pulmonary disease, unspecified; I25.10 Atherosclerotic heart disease of native coronary artery without angina pectoris; E78.00 Pure hypercholesterolemia, unspecified; F32.A Depression, unspecified; Z79.82 Long term (current) use of aspirin; Z79.899 Other long term (current) drug therapy; Z88.8 Allergy status to other drugs, medicaments and biological substances
CPT/HCPCS: 36415; 71045; 80048; 80053; 83735; 83880; 84484; 85025; 93005; 96372; 96374; 96376; 97162; 99285; A9270; G0378; J1650; J1940; J3490

== ENCOUNTER 2023-09-17 17:10 | Inpatient (IN) | payer BC ==
[2023-09-17 18:13] LABS: BASOPHILS ABSOLUTE AUTO 0.05 K/uL (0.00-0.20); BASOPHILS PERCENT AUTO 0.8 % (0.0-1.0); EOSINOPHILS ABSOLUTE AUTO 0.08 K/uL (0.00-0.45); EOSINOPHILS PERCENT AUTO 1.2 % (0.0-6.0); HEMATOCRIT 37.9 % (42.0-52.0); HEMOGLOBIN 12.4 g/dL (14.0-18.0); IMMATURE GRAN ABSOLUTE AUTO 0.06 K/uL (0.00-0.05); IMMATURE GRAN PERCENT AUTO 0.9 % (0.0-0.4); LYMPHOCYTES ABSOLUTE AUTO 0.58 K/uL (1.00-4.80); LYMPHOCYTES PERCENT AUTO 8.8 % (24.0-44.0); MEAN CORPUSCULAR HEMOGLOBIN 28.4 pg (28.0-32.0); MEAN CORPUSCULAR HGB CONC 32.7 g/dL (32.0-36.0); MEAN CORPUSCULAR VOLUME 86.9 fL (83.0-99.0); MEAN PLATELET VOLUME 10.4 fL (9.4-12.4); MONOCYTES ABSOLUTE AUTO 0.43 K/uL (0.00-0.80); MONOCYTES PERCENT AUTO 6.5 % (0.0-8.0); NEUTROPHILS ABSOLUTE AUTO 5.37 K/uL (1.80-7.70); NEUTROPHILS PERCENT AUTO 81.8 % (41.0-71.0); PLATELET COUNT,PLT 253 K/uL (150-400); RED BLOOD CELL COUNT 4.36 M/uL (4.52-5.90); WHITE BLOOD CELL COUNT,WBC 6.57 K/uL (3.9-11.3)
[2023-09-17 18:37] LABS: A/G RATIO 0.6 (0.9-1.6); ALBUMIN 3.1 g/dL (3.4-5.0); BILIRUBIN TOTAL 1.3 mg/dL (0.2-1.0); CALCIUM 8.8 mg/dL (8.5-10.1); CARBON DIOXIDE,CO2 25.7 mmol/L (21.0-32.0); CREATININE 0.8 mg/dL (0.8-1.3); EST CRCL DRUG DOSING (CG) 82.22 mL/min; MAGNESIUM 2.2 mg/dL (1.8-2.4); POTASSIUM,K 6.1 mmol/L (3.5-5.1)
[2023-09-17 19:21] LABS: CALCIUM 9.2 mg/dL (8.5-10.1); CARBON DIOXIDE,CO2 26.9 mmol/L (21.0-32.0); CREATININE 0.9 mg/dL (0.8-1.3); EST CRCL DRUG DOSING (CG) 73.09 mL/min; POTASSIUM,K 4.2 mmol/L (3.5-5.1)
[2023-09-17] MEDS ORDERED: Furosemide 40 MG/4 ML VIAL IVPUSH ONE (19:47)
[2023-09-17] MEDS ORDERED: Sodium Chloride 0.9% 20 ML SDV IV PRN (20:43)
[2023-09-17] MEDS ORDERED: Ondansetron 4 MG/2 ML SDV IVPUSH PRN (20:43)
[2023-09-17] MEDS ORDERED: Polyethylene Glycol 3350 Powder 17 GM Packet PO PRN (20:43)
[2023-09-17] MEDS ORDERED: Sodium Chloride 0.9% 10 ML Syringe FLUSH PRN (20:43)
[2023-09-17] MEDS ORDERED: Sodium Chloride 0.9% 2.5 ML Syringe FLUSH PRN (20:43)
[2023-09-17] MEDS: Potassium Chloride 20 MEQ Tab.ER PO SCH (21:45)
[2023-09-17] MEDS: Enoxaparin 40 MG/0.4 ML Syringe SUBCUT SCH (21:45)
[2023-09-17] MEDS: Pantoprazole 40 MG in Sodium Chloride 0.9% 10 ML IVPUSH SCH (21:45)
[2023-09-18 06:25] LABS: BASOPHILS ABSOLUTE AUTO 0.05 K/uL (0.00-0.20); BASOPHILS PERCENT AUTO 0.8 % (0.0-1.0); EOSINOPHILS ABSOLUTE AUTO 0.09 K/uL (0.00-0.45); EOSINOPHILS PERCENT AUTO 1.4 % (0.0-6.0); HEMATOCRIT 36.6 % (42.0-52.0); IMMATURE GRAN ABSOLUTE AUTO 0.05 K/uL (0.00-0.05); IMMATURE GRAN PERCENT AUTO 0.8 % (0.0-0.4); LYMPHOCYTES ABSOLUTE AUTO 0.61 K/uL (1.00-4.80); LYMPHOCYTES PERCENT AUTO 9.3 % (24.0-44.0); MEAN CORPUSCULAR HEMOGLOBIN 28.1 pg (28.0-32.0); MEAN CORPUSCULAR HGB CONC 32.8 g/dL (32.0-36.0); MEAN CORPUSCULAR VOLUME 85.7 fL (83.0-99.0); MONOCYTES ABSOLUTE AUTO 0.53 K/uL (0.00-0.80); MONOCYTES PERCENT AUTO 8.1 % (0.0-8.0); NEUTROPHILS ABSOLUTE AUTO 5.21 K/uL (1.80-7.70); NEUTROPHILS PERCENT AUTO 79.6 % (41.0-71.0); PLATELET COUNT,PLT 286 K/uL (150-400); RED BLOOD CELL COUNT 4.27 M/uL (4.52-5.90); WHITE BLOOD CELL COUNT,WBC 6.54 K/uL (3.9-11.3)
[2023-09-18 06:50] LABS: A/G RATIO 0.7 (0.9-1.6); ALBUMIN 3.1 g/dL (3.4-5.0); BILIRUBIN TOTAL 1.1 mg/dL (0.2-1.0); CARBON DIOXIDE,CO2 27.2 mmol/L (21.0-32.0); CREATININE 0.9 mg/dL (0.8-1.3); EST CRCL DRUG DOSING (CG) 78.77 mL/min; MAGNESIUM 2.3 mg/dL (1.8-2.4); POTASSIUM,K 3.8 mmol/L (3.5-5.1); PROTEIN TOTAL,TP 7.4 g/dL (6.4-8.2)
[2023-09-18] MEDS: Spironolactone 25 MG Tab PO SCH (08:57)
[2023-09-18] MEDS: Aspirin 81 MG Tab.Chew PO SCH (08:59)
[2023-09-18] MEDS ORDERED: Furosemide 40 MG/4 ML VIAL IVPUSH SCH (09:00)
[2023-09-18] MEDS: Empagliflozin 10 MG Tab PO SCH (09:00)
[2023-09-18] MEDS ORDERED: Aspirin 81 MG Tab.Chew PO SCH (09:00)
[2023-09-18] MEDS: Metoprolol Succinate 50 MG Tab.ER PO SCH (09:01)
[2023-09-18] MEDS: Sodium Chloride 1 GM Tab PO SCH (09:03)
[2023-09-18] MEDS: Potassium Chloride 20 MEQ Tab.ER PO SCH ×2 (09:04→20:57)
[2023-09-18] MEDS: Furosemide 40 MG/4 ML VIAL IVPUSH SCH ×3 (14:40→21:05)
[2023-09-18] MEDS: Albuterol 8 GM Inhaler INH PRN ×2 (14:40→18:50)
[2023-09-18] MEDS: Midodrine 5 MG Tab PO SCH ×2 (15:48→20:56)
[2023-09-18] MEDS: Pantoprazole 40 MG in Sodium Chloride 0.9% 10 ML IVPUSH SCH (20:58)
[2023-09-18] MEDS: Enoxaparin 40 MG/0.4 ML Syringe SUBCUT SCH (20:58)
[2023-09-18] MEDS: Albuterol/Ipratropium 3.0-0.5 MG/3 ML Neb Soln NEB PRN (23:20)
[2023-09-19] MEDS: Furosemide 40 MG/4 ML VIAL IVPUSH SCH ×3 (05:19→21:58)
[2023-09-19 06:16] LABS: BASOPHILS ABSOLUTE AUTO 0.06 K/uL (0.00-0.20); BASOPHILS PERCENT AUTO 0.8 % (0.0-1.0); EOSINOPHILS ABSOLUTE AUTO 0.11 K/uL (0.00-0.45); EOSINOPHILS PERCENT AUTO 1.6 % (0.0-6.0); HEMATOCRIT 38.6 % (42.0-52.0); HEMOGLOBIN 12.9 g/dL (14.0-18.0); IMMATURE GRAN ABSOLUTE AUTO 0.07 K/uL (0.00-0.05); LYMPHOCYTES ABSOLUTE AUTO 0.84 K/uL (1.00-4.80); LYMPHOCYTES PERCENT AUTO 11.9 % (24.0-44.0); MEAN CORPUSCULAR HEMOGLOBIN 28.7 pg (28.0-32.0); MEAN CORPUSCULAR HGB CONC 33.4 g/dL (32.0-36.0); MEAN PLATELET VOLUME 10.3 fL (9.4-12.4); MONOCYTES ABSOLUTE AUTO 0.65 K/uL (0.00-0.80); MONOCYTES PERCENT AUTO 9.2 % (0.0-8.0); NEUTROPHILS ABSOLUTE AUTO 5.35 K/uL (1.80-7.70); NEUTROPHILS PERCENT AUTO 75.5 % (41.0-71.0); PLATELET COUNT,PLT 321 K/uL (150-400); RED BLOOD CELL COUNT 4.49 M/uL (4.52-5.90); WHITE BLOOD CELL COUNT,WBC 7.08 K/uL (3.9-11.3)
[2023-09-19 06:31] LABS: A/G RATIO 0.8 (0.9-1.6); ALBUMIN 3.4 g/dL (3.4-5.0); BILIRUBIN TOTAL 1.5 mg/dL (0.2-1.0); CALCIUM 9.3 mg/dL (8.5-10.1); CARBON DIOXIDE,CO2 23.5 mmol/L (21.0-32.0); CREATININE 1.2 mg/dL (0.8-1.3); EST CRCL DRUG DOSING (CG) 59.07 mL/min; POTASSIUM,K 5.1 mmol/L (3.5-5.1); PROTEIN TOTAL,TP 7.7 g/dL (6.4-8.2)
[2023-09-19] MEDS: Midodrine 5 MG Tab PO SCH ×3 (09:52→21:58)
[2023-09-19] MEDS: Empagliflozin 10 MG Tab PO SCH (09:52)
[2023-09-19] MEDS: Potassium Chloride 20 MEQ Tab.ER PO SCH ×2 (09:52→20:04)
[2023-09-19] MEDS: Tamsulosin 0.4 MG Cap.ER PO SCH (09:52)
[2023-09-19] MEDS: Metoprolol Succinate 50 MG Tab.ER PO SCH (09:54)
[2023-09-19] MEDS: Aspirin 81 MG Tab.Chew PO SCH (09:55)
[2023-09-19] MEDS: Sodium Chloride 1 GM Tab PO SCH ×3 (09:55→21:58)
[2023-09-19] MEDS: Spironolactone 25 MG Tab PO SCH (09:58)
[2023-09-19] MEDS: Acetaminophen 325 MG Tab PO PRN ×2 (14:04→21:58)
[2023-09-19] MEDS: Albuterol/Ipratropium 3.0-0.5 MG/3 ML Neb Soln NEB PRN ×2 (18:17→23:45)
[2023-09-19] MEDS ORDERED: Metolazone 5 MG Tab PO ONE (18:18)
[2023-09-19] MEDS ORDERED: Midodrine 5 MG Tab PO ONE (18:45)
[2023-09-19] MEDS: Pantoprazole 40 MG in Sodium Chloride 0.9% 10 ML IVPUSH SCH (20:04)
[2023-09-19] MEDS: Enoxaparin 40 MG/0.4 ML Syringe SUBCUT SCH (20:05)
[2023-09-19] MEDS ORDERED: Midodrine 5 MG Tab PO SCH (21:00)
[2023-09-20] MEDS: Furosemide 40 MG/4 ML VIAL IVPUSH SCH ×3 (05:22→22:15)
[2023-09-20] MEDS: Midodrine 5 MG Tab PO SCH ×3 (05:23→22:15)
[2023-09-20] MEDS: Sodium Chloride 1 GM Tab PO SCH ×3 (05:23→22:15)
[2023-09-20 06:34] LABS: BASOPHILS PERCENT AUTO 1.3 % (0.0-1.0); EOSINOPHILS PERCENT AUTO 1.3 % (0.0-6.0); HEMATOCRIT 38.7 % (42.0-52.0); IMMATURE GRAN ABSOLUTE AUTO 0.11 K/uL (0.00-0.05); IMMATURE GRAN PERCENT AUTO 1.5 % (0.0-0.4); LYMPHOCYTES ABSOLUTE AUTO 0.84 K/uL (1.00-4.80); LYMPHOCYTES PERCENT AUTO 11.3 % (24.0-44.0); MEAN CORPUSCULAR HEMOGLOBIN 28.4 pg (28.0-32.0); MEAN CORPUSCULAR HGB CONC 33.6 g/dL (32.0-36.0); MEAN CORPUSCULAR VOLUME 84.7 fL (83.0-99.0); MEAN PLATELET VOLUME 10.2 fL (9.4-12.4); MONOCYTES ABSOLUTE AUTO 0.63 K/uL (0.00-0.80); MONOCYTES PERCENT AUTO 8.5 % (0.0-8.0); NEUTROPHILS ABSOLUTE AUTO 5.65 K/uL (1.80-7.70); NEUTROPHILS PERCENT AUTO 76.1 % (41.0-71.0); PLATELET COUNT,PLT 348 K/uL (150-400); RED BLOOD CELL COUNT 4.57 M/uL (4.52-5.90); WHITE BLOOD CELL COUNT,WBC 7.43 K/uL (3.9-11.3)
[2023-09-20 07:11] LABS: A/G RATIO 0.8 (0.9-1.6); ALBUMIN 3.5 g/dL (3.4-5.0); CARBON DIOXIDE,CO2 25.3 mmol/L (21.0-32.0); CREATININE 1.3 mg/dL (0.8-1.3); EST CRCL DRUG DOSING (CG) 54.53 mL/min; POTASSIUM,K 4.1 mmol/L (3.5-5.1); PROTEIN TOTAL,TP 7.9 g/dL (6.4-8.2)
[2023-09-20] MEDS: Metoprolol Succinate 50 MG Tab.ER PO SCH (08:37)
[2023-09-20] MEDS: Aspirin 81 MG Tab.Chew PO SCH (08:37)
[2023-09-20] MEDS: Tamsulosin 0.4 MG Cap.ER PO SCH (08:37)
[2023-09-20] MEDS: Empagliflozin 10 MG Tab PO SCH (08:40)
[2023-09-20] MEDS: Spironolactone 25 MG Tab PO SCH (08:40)
[2023-09-20] MEDS: Potassium Chloride 20 MEQ Tab.ER PO SCH ×2 (08:40→20:09)
[2023-09-20] MEDS: Nystatin Topical Powder 15 GM Bottle TOP SCH ×2 (13:39→20:08)
[2023-09-20] MEDS ORDERED: Sodium Chloride 0.9% 500 ML IV SCH (15:00)
[2023-09-20] MEDS: Pantoprazole 40 MG in Sodium Chloride 0.9% 10 ML IVPUSH SCH (20:09)
[2023-09-20] MEDS: Enoxaparin 40 MG/0.4 ML Syringe SUBCUT SCH (20:09)
[2023-09-20] MEDS: Acetaminophen 325 MG Tab PO PRN (20:28)
[2023-09-21] MEDS: Nystatin Topical Powder 15 GM Bottle TOP SCH ×4 (04:20→20:10)
[2023-09-21 06:31] LABS: BASOPHILS ABSOLUTE AUTO 0.04 K/uL (0.00-0.20); BASOPHILS PERCENT AUTO 0.3 % (0.0-1.0); EOSINOPHILS ABSOLUTE AUTO 0.05 K/uL (0.00-0.45); EOSINOPHILS PERCENT AUTO 0.4 % (0.0-6.0); HEMATOCRIT 40.1 % (42.0-52.0); HEMOGLOBIN 13.6 g/dL (14.0-18.0); IMMATURE GRAN ABSOLUTE AUTO 0.08 K/uL (0.00-0.05); IMMATURE GRAN PERCENT AUTO 0.6 % (0.0-0.4); LYMPHOCYTES ABSOLUTE AUTO 0.28 K/uL (1.00-4.80); MEAN CORPUSCULAR HEMOGLOBIN 28.8 pg (28.0-32.0); MEAN CORPUSCULAR HGB CONC 33.9 g/dL (32.0-36.0); MEAN CORPUSCULAR VOLUME 84.8 fL (83.0-99.0); MEAN PLATELET VOLUME 9.5 fL (9.4-12.4); MONOCYTES ABSOLUTE AUTO 0.67 K/uL (0.00-0.80); MONOCYTES PERCENT AUTO 4.9 % (0.0-8.0); NEUTROPHILS ABSOLUTE AUTO 12.56 K/uL (1.80-7.70); NEUTROPHILS PERCENT AUTO 91.8 % (41.0-71.0); PLATELET COUNT,PLT 336 K/uL (150-400); RED BLOOD CELL COUNT 4.73 M/uL (4.52-5.90); WHITE BLOOD CELL COUNT,WBC 13.68 K/uL (3.9-11.3)
[2023-09-21] MEDS: Acetaminophen 325 MG Tab PO PRN ×2 (06:55→21:23)
[2023-09-21 06:56] LABS: CALCIUM 9.1 mg/dL (8.5-10.1); CARBON DIOXIDE,CO2 25.9 mmol/L (21.0-32.0); CREATININE 1.3 mg/dL (0.8-1.3); EST CRCL DRUG DOSING (CG) 54.53 mL/min; POTASSIUM,K 4.7 mmol/L (3.5-5.1)
[2023-09-21] MEDS: Furosemide 40 MG/4 ML VIAL IVPUSH SCH ×3 (06:56→22:43)
[2023-09-21] MEDS: Midodrine 5 MG Tab PO SCH ×3 (06:56→21:17)
[2023-09-21] MEDS: Sodium Chloride 1 GM Tab PO SCH ×3 (06:56→21:17)
[2023-09-21] MEDS: Potassium Chloride 20 MEQ Tab.ER PO SCH ×2 (10:27→21:17)
[2023-09-21] MEDS: Spironolactone 25 MG Tab PO SCH (10:28)
[2023-09-21] MEDS: Metoprolol Succinate 50 MG Tab.ER PO SCH (10:28)
[2023-09-21] MEDS: Aspirin 81 MG Tab.Chew PO SCH (10:29)
[2023-09-21] MEDS: Enoxaparin 40 MG/0.4 ML Syringe SUBCUT SCH (21:16)
[2023-09-21] MEDS: Pantoprazole 40 MG in Sodium Chloride 0.9% 10 ML IVPUSH SCH (21:19)
[2023-09-21] MEDS: Tamsulosin 0.4 MG Cap.ER PO SCH (21:55)
[2023-09-22] MEDS: Nystatin Topical Powder 15 GM Bottle TOP SCH ×4 (01:18→18:23)
[2023-09-22] MEDS: Midodrine 5 MG Tab PO SCH ×3 (06:17→21:25)
[2023-09-22] MEDS: Sodium Chloride 1 GM Tab PO SCH ×3 (06:18→21:25)
[2023-09-22 06:39] LABS: BASOPHILS ABSOLUTE AUTO 0.03 K/uL (0.00-0.20); BASOPHILS PERCENT AUTO 0.4 % (0.0-1.0); EOSINOPHILS ABSOLUTE AUTO 0.07 K/uL (0.00-0.45); EOSINOPHILS PERCENT AUTO 0.8 % (0.0-6.0); HEMATOCRIT 36.7 % (42.0-52.0); HEMOGLOBIN 12.4 g/dL (14.0-18.0); IMMATURE GRAN ABSOLUTE AUTO 0.13 K/uL (0.00-0.05); IMMATURE GRAN PERCENT AUTO 1.5 % (0.0-0.4); LYMPHOCYTES PERCENT AUTO 8.2 % (24.0-44.0); MEAN CORPUSCULAR HEMOGLOBIN 28.8 pg (28.0-32.0); MEAN CORPUSCULAR HGB CONC 33.8 g/dL (32.0-36.0); MEAN CORPUSCULAR VOLUME 85.2 fL (83.0-99.0); MEAN PLATELET VOLUME 10.2 fL (9.4-12.4); MONOCYTES ABSOLUTE AUTO 0.81 K/uL (0.00-0.80); MONOCYTES PERCENT AUTO 9.5 % (0.0-8.0); NEUTROPHILS ABSOLUTE AUTO 6.75 K/uL (1.80-7.70); NEUTROPHILS PERCENT AUTO 79.6 % (41.0-71.0); PLATELET COUNT,PLT 321 K/uL (150-400); RED BLOOD CELL COUNT 4.31 M/uL (4.52-5.90); WHITE BLOOD CELL COUNT,WBC 8.49 K/uL (3.9-11.3)
[2023-09-22 06:57] LABS: CALCIUM 9.2 mg/dL (8.5-10.1); CARBON DIOXIDE,CO2 26.3 mmol/L (21.0-32.0); CREATININE 1.3 mg/dL (0.8-1.3); EST CRCL DRUG DOSING (CG) 54.53 mL/min; POTASSIUM,K 3.8 mmol/L (3.5-5.1)
[2023-09-22] MEDS: Furosemide 40 MG/4 ML VIAL IVPUSH SCH ×3 (07:14→22:52)
[2023-09-22] MEDS: Aspirin 81 MG Tab.Chew PO SCH (10:14)
[2023-09-22] MEDS: Spironolactone 25 MG Tab PO SCH (10:14)
[2023-09-22] MEDS: Tamsulosin 0.4 MG Cap.ER PO SCH (10:14)
[2023-09-22] MEDS: Potassium Chloride 20 MEQ Tab.ER PO SCH ×2 (10:15→19:59)
[2023-09-22] MEDS: Metoprolol Succinate 50 MG Tab.ER PO SCH (10:18)
[2023-09-22] MEDS: Pantoprazole 40 MG in Sodium Chloride 0.9% 10 ML IVPUSH SCH (19:59)
[2023-09-22] MEDS: Enoxaparin 40 MG/0.4 ML Syringe SUBCUT SCH (19:59)
[2023-09-23] MEDS: Nystatin Topical Powder 15 GM Bottle TOP SCH ×3 (00:01→14:39)
[2023-09-23] MEDS: Sodium Chloride 1 GM Tab PO SCH (05:23)
[2023-09-23] MEDS: Midodrine 5 MG Tab PO SCH (05:23)
[2023-09-23] MEDS: Furosemide 40 MG/4 ML VIAL IVPUSH SCH (06:00)
[2023-09-23 06:49] LABS: BASOPHILS ABSOLUTE AUTO 0.07 K/uL (0.00-0.20); BASOPHILS PERCENT AUTO 0.9 % (0.0-1.0); EOSINOPHILS ABSOLUTE AUTO 0.06 K/uL (0.00-0.45); EOSINOPHILS PERCENT AUTO 0.8 % (0.0-6.0); HEMATOCRIT 38.9 % (42.0-52.0); HEMOGLOBIN 12.9 g/dL (14.0-18.0); IMMATURE GRAN ABSOLUTE AUTO 0.18 K/uL (0.00-0.05); IMMATURE GRAN PERCENT AUTO 2.4 % (0.0-0.4); LYMPHOCYTES ABSOLUTE AUTO 0.64 K/uL (1.00-4.80); LYMPHOCYTES PERCENT AUTO 8.6 % (24.0-44.0); MEAN CORPUSCULAR HEMOGLOBIN 28.1 pg (28.0-32.0); MEAN CORPUSCULAR HGB CONC 33.2 g/dL (32.0-36.0); MEAN CORPUSCULAR VOLUME 84.7 fL (83.0-99.0); MEAN PLATELET VOLUME 10.8 fL (9.4-12.4); MONOCYTES ABSOLUTE AUTO 0.73 K/uL (0.00-0.80); MONOCYTES PERCENT AUTO 9.8 % (0.0-8.0); NEUTROPHILS ABSOLUTE AUTO 5.74 K/uL (1.80-7.70); NEUTROPHILS PERCENT AUTO 77.5 % (41.0-71.0); PLATELET COUNT,PLT 296 K/uL (150-400); RED BLOOD CELL COUNT 4.59 M/uL (4.52-5.90); WHITE BLOOD CELL COUNT,WBC 7.42 K/uL (3.9-11.3)
[2023-09-23 07:30] LABS: CALCIUM 8.9 mg/dL (8.5-10.1); CARBON DIOXIDE,CO2 31.3 mmol/L (21.0-32.0); CREATININE 1.2 mg/dL (0.8-1.3); EST CRCL DRUG DOSING (CG) 59.07 mL/min; POTASSIUM,K 4.4 mmol/L (3.5-5.1)
[2023-09-23] MEDS: Aspirin 81 MG Tab.Chew PO SCH (09:31)
[2023-09-23] MEDS: Spironolactone 25 MG Tab PO SCH (09:35)
[2023-09-23] MEDS: Tamsulosin 0.4 MG Cap.ER PO SCH (09:36)
[2023-09-23] MEDS: Potassium Chloride 20 MEQ Tab.ER PO SCH (09:36)
[2023-09-23] MEDS: Metoprolol Succinate 50 MG Tab.ER PO SCH (09:55)
[2023-09-23 14:55] VITALS: BP 97/60; PULSE 86
== END 2023-09-23 14:30 | disposition home or self-care (01) | DRG 194 ==
LOC: MW.ED 17:10 → MW.MS 19:59 → OBSVTOIN 09-18 09:26 → MW.MS 09-18 14:53
PROVIDERS: ADMIT Family Medicine; ATTEND Internal Medicine
DX: I11.0 Hypertensive heart disease with heart failure (principal); I50.23 Acute on chronic systolic (congestive) heart failure; Z79.82 Long term (current) use of aspirin; J81.1 Chronic pulmonary edema; E87.1 Hypo-osmolality and hyponatremia; I42.9 Cardiomyopathy, unspecified; I95.9 Hypotension, unspecified; I48.91 Unspecified atrial fibrillation; L03.116 Cellulitis of left lower limb; L03.115 Cellulitis of right lower limb; Z86.14 Personal history of Methicillin resistant Staphylococcus aureus infection; Z95.810 Presence of automatic (implantable) cardiac defibrillator
CPT/HCPCS: 36415; 71045; 71045-26; 76700; 76700-26; 80048; 80053; 83735; 83880; 84484; 85025; 93005; 93010; 96372; 96374; 96375; 96376; 99222; 99231; 99232; 99239; 99284; 99285-25; A9270-GY; C9113; G0378; J1650; J1940; J2405; J3490; J7620-GY

== ENCOUNTER 2023-12-05 09:47 | Inpatient (IN) | payer BC ==
[2023-12-05] MEDS: Sodium Chloride 0.9% 1,000 ML IV STA (11:05)
[2023-12-05] MEDS: Sodium Chloride 0.9% 2.5 ML Syringe FLUSH PRN (11:08)
[2023-12-05] MEDS: Sodium Chloride 0.9% 10 ML Syringe FLUSH PRN (11:08)
[2023-12-05 11:10] LABS: BASOPHILS ABSOLUTE AUTO 0.04 K/uL (0.00-0.20); BASOPHILS PERCENT AUTO 0.4 % (0.0-1.0); EOSINOPHILS ABSOLUTE AUTO 0.01 K/uL (0.00-0.45); EOSINOPHILS PERCENT AUTO 0.1 % (0.0-6.0); HEMATOCRIT 40.9 % (42.0-52.0); HEMOGLOBIN 13.6 g/dL (14.0-18.0); IMMATURE GRAN ABSOLUTE AUTO 0.08 K/uL (0.00-0.05); IMMATURE GRAN PERCENT AUTO 0.9 % (0.0-0.4); LYMPHOCYTES PERCENT AUTO 4.4 % (24.0-44.0); MEAN CORPUSCULAR HGB CONC 33.3 g/dL (32.0-36.0); MEAN CORPUSCULAR VOLUME 81.3 fL (83.0-99.0); MEAN PLATELET VOLUME 9.2 fL (9.4-12.4); MONOCYTES PERCENT AUTO 6.6 % (0.0-8.0); NEUTROPHILS ABSOLUTE AUTO 7.93 K/uL (1.80-7.70); NEUTROPHILS PERCENT AUTO 87.6 % (41.0-71.0); PLATELET COUNT,PLT 300 K/uL (150-400); RED BLOOD CELL COUNT 5.03 M/uL (4.52-5.90); WHITE BLOOD CELL COUNT,WBC 9.06 K/uL (3.9-11.3)
[2023-12-05 11:23] LABS: INR 1.28 (0.86-1.11)
[2023-12-05 11:39] LABS: A/G RATIO 0.6 (0.9-1.6); ALBUMIN 3.2 g/dL (3.4-5.0); BILIRUBIN TOTAL 2.3 mg/dL (0.2-1.0); CALCIUM 9.3 mg/dL (8.5-10.1); CARBON DIOXIDE,CO2 24.6 mmol/L (21.0-32.0); CREATININE 1.2 mg/dL (0.8-1.3); EST CRCL DRUG DOSING (CG) 59.07 mL/min; POTASSIUM,K 4.1 mmol/L (3.5-5.1); PROTEIN TOTAL,TP 8.3 g/dL (6.4-8.2)
[2023-12-05 11:58] LABS: LACTIC ACID 1.9 mmol/L (0.4-2.0)
[2023-12-05 12:05] LABS: MAGNESIUM 2.5 mg/dL (1.8-2.4)
[2023-12-05] MEDS: VANCOmycin 2 GM/400 ML 2 GM in Premix Bag 1 BAG IV ONE (12:22)
[2023-12-05] MEDS: Midodrine 5 MG Tab PO STA ×2 (12:41→17:15)
[2023-12-05] MEDS ORDERED: Sodium Chloride 0.9% 10 ML Syringe FLUSH PRN (15:41)
[2023-12-05] MEDS ORDERED: Sodium Chloride 0.9% 2.5 ML Syringe FLUSH PRN (15:41)
[2023-12-05] MEDS ORDERED: Ondansetron 4 MG/2 ML SDV IVPUSH PRN (15:41)
[2023-12-05] MEDS: cefTRIAXone 1 GM in Sodium Chloride 0.9% 50 ML IV SCH (18:03)
[2023-12-05] MEDS: Heparin Sodium 5,000 Units/ML Vial SUBCUT SCH (18:09)
[2023-12-05] MEDS: Furosemide 20 MG/2 ML VIAL IVPUSH ONE (18:12)
[2023-12-05 19:22] LABS: APPEARANCE,URINE CLEAR; BILIRUBIN,URINE NEGATIVE (NEGATIVE); COLOR,URINE YELLOW; GLUCOSE,URINE NEGATIVE (NEGATIVE); KETONES,URINE NEGATIVE (NEGATIVE); LEUKOCYTE ESTERASE,URINE NEGATIVE (NEGATIVE); NITRITE,URINE NEGATIVE (NEGATIVE); OCCULT BLOOD,URINE NEGATIVE (NEGATIVE); PH,URINE 5.5 (5.0-8.0); PROTEIN,URINE NEGATIVE (NEGATIVE); UROBILINOGEN,URINE 0.2 EU/dL (<2.0)
[2023-12-05] MEDS: Furosemide 40 MG/4 ML VIAL IVPUSH SCH (22:07)
[2023-12-05] MEDS: Midodrine 5 MG Tab PO SCH (22:07)
[2023-12-05] MEDS: Tamsulosin 0.4 MG Cap.ER PO SCH (22:07)
[2023-12-05] MEDS: Nystatin Topical Powder 15 GM Bottle TOP SCH (22:11)
[2023-12-06] MEDS: Pantoprazole 40 MG Tab.CR PO SCH (06:19)
[2023-12-06 06:21] LABS: BASOPHILS ABSOLUTE AUTO 0.05 K/uL (0.00-0.20); BASOPHILS PERCENT AUTO 0.6 % (0.0-1.0); EOSINOPHILS ABSOLUTE AUTO 0.07 K/uL (0.00-0.45); EOSINOPHILS PERCENT AUTO 0.9 % (0.0-6.0); HEMATOCRIT 38.7 % (42.0-52.0); HEMOGLOBIN 12.6 g/dL (14.0-18.0); IMMATURE GRAN ABSOLUTE AUTO 0.09 K/uL (0.00-0.05); IMMATURE GRAN PERCENT AUTO 1.1 % (0.0-0.4); LYMPHOCYTES ABSOLUTE AUTO 0.64 K/uL (1.00-4.80); LYMPHOCYTES PERCENT AUTO 7.8 % (24.0-44.0); MEAN CORPUSCULAR HEMOGLOBIN 26.9 pg (28.0-32.0); MEAN CORPUSCULAR HGB CONC 32.6 g/dL (32.0-36.0); MEAN CORPUSCULAR VOLUME 82.5 fL (83.0-99.0); MONOCYTES ABSOLUTE AUTO 0.62 K/uL (0.00-0.80); MONOCYTES PERCENT AUTO 7.6 % (0.0-8.0); NEUTROPHILS ABSOLUTE AUTO 6.74 K/uL (1.80-7.70); PLATELET COUNT,PLT 298 K/uL (150-400); RED BLOOD CELL COUNT 4.69 M/uL (4.52-5.90); WHITE BLOOD CELL COUNT,WBC 8.21 K/uL (3.9-11.3)
[2023-12-06 06:45] LABS: A/G RATIO 0.6 (0.9-1.6); ALBUMIN 2.7 g/dL (3.4-5.0); BILIRUBIN TOTAL 1.3 mg/dL (0.2-1.0); CALCIUM 8.6 mg/dL (8.5-10.1); CARBON DIOXIDE,CO2 27.9 mmol/L (21.0-32.0); CREATININE 0.9 mg/dL (0.8-1.3); EST CRCL DRUG DOSING (CG) 80.19 mL/min; MAGNESIUM 2.2 mg/dL (1.8-2.4); POTASSIUM,K 3.5 mmol/L (3.5-5.1); PROTEIN TOTAL,TP 7.3 g/dL (6.4-8.2)
[2023-12-06] MEDS: Aspirin 81 MG Tab.EC PO SCH (09:16)
[2023-12-06] MEDS: Spironolactone 25 MG Tab PO SCH (09:16)
[2023-12-06] MEDS: Docusate Sodium 100 MG Cap PO PRN (09:17)
[2023-12-06] MEDS: Acetaminophen 325 MG Tab PO PRN (11:54)
[2023-12-07 06:16] LABS: BASOPHILS ABSOLUTE AUTO 0.07 K/uL (0.00-0.20); BASOPHILS PERCENT AUTO 0.9 % (0.0-1.0); EOSINOPHILS ABSOLUTE AUTO 0.16 K/uL (0.00-0.45); HEMATOCRIT 41.8 % (42.0-52.0); HEMOGLOBIN 13.4 g/dL (14.0-18.0); IMMATURE GRAN ABSOLUTE AUTO 0.13 K/uL (0.00-0.05); IMMATURE GRAN PERCENT AUTO 1.6 % (0.0-0.4); LYMPHOCYTES ABSOLUTE AUTO 0.62 K/uL (1.00-4.80); LYMPHOCYTES PERCENT AUTO 7.8 % (24.0-44.0); MEAN CORPUSCULAR HEMOGLOBIN 27.1 pg (28.0-32.0); MEAN CORPUSCULAR HGB CONC 32.1 g/dL (32.0-36.0); MEAN CORPUSCULAR VOLUME 84.6 fL (83.0-99.0); MEAN PLATELET VOLUME 9.8 fL (9.4-12.4); MONOCYTES ABSOLUTE AUTO 0.59 K/uL (0.00-0.80); MONOCYTES PERCENT AUTO 7.4 % (0.0-8.0); NEUTROPHILS ABSOLUTE AUTO 6.38 K/uL (1.80-7.70); NEUTROPHILS PERCENT AUTO 80.3 % (41.0-71.0); PLATELET COUNT,PLT 257 K/uL (150-400); RED BLOOD CELL COUNT 4.94 M/uL (4.52-5.90); WHITE BLOOD CELL COUNT,WBC 7.95 K/uL (3.9-11.3)
[2023-12-07 06:47] LABS: A/G RATIO 0.6 (0.9-1.6); ALBUMIN 2.8 g/dL (3.4-5.0); BILIRUBIN TOTAL 0.8 mg/dL (0.2-1.0); CARBON DIOXIDE,CO2 27.2 mmol/L (21.0-32.0); EST CRCL DRUG DOSING (CG) 72.17 mL/min; MAGNESIUM 2.3 mg/dL (1.8-2.4); POTASSIUM,K 4.2 mmol/L (3.5-5.1); PROTEIN TOTAL,TP 7.7 g/dL (6.4-8.2)
[2023-12-07] MEDS: VANCOmycin 1.5 GM/300 ML 1.5 GM in Premix Bag 1 BAG IV SCH (23:20)
[2023-12-08 05:55] LABS: BASOPHILS ABSOLUTE AUTO 0.07 K/uL (0.00-0.20); EOSINOPHILS ABSOLUTE AUTO 0.09 K/uL (0.00-0.45); EOSINOPHILS PERCENT AUTO 1.3 % (0.0-6.0); HEMATOCRIT 41.4 % (42.0-52.0); IMMATURE GRAN ABSOLUTE AUTO 0.14 K/uL (0.00-0.05); IMMATURE GRAN PERCENT AUTO 2.1 % (0.0-0.4); LYMPHOCYTES ABSOLUTE AUTO 0.61 K/uL (1.00-4.80); LYMPHOCYTES PERCENT AUTO 9.1 % (24.0-44.0); MEAN CORPUSCULAR HEMOGLOBIN 26.6 pg (28.0-32.0); MEAN CORPUSCULAR HGB CONC 31.4 g/dL (32.0-36.0); MEAN CORPUSCULAR VOLUME 84.8 fL (83.0-99.0); MEAN PLATELET VOLUME 9.4 fL (9.4-12.4); MONOCYTES ABSOLUTE AUTO 0.57 K/uL (0.00-0.80); MONOCYTES PERCENT AUTO 8.5 % (0.0-8.0); NEUTROPHILS ABSOLUTE AUTO 5.24 K/uL (1.80-7.70); PLATELET COUNT,PLT 249 K/uL (150-400); RED BLOOD CELL COUNT 4.88 M/uL (4.52-5.90); WHITE BLOOD CELL COUNT,WBC 6.72 K/uL (3.9-11.3)
[2023-12-08 06:19] LABS: CALCIUM 8.9 mg/dL (8.5-10.1); CARBON DIOXIDE,CO2 31.1 mmol/L (21.0-32.0); EST CRCL DRUG DOSING (CG) 72.17 mL/min; MAGNESIUM 2.1 mg/dL (1.8-2.4); POTASSIUM,K 4.2 mmol/L (3.5-5.1)
[2023-12-08] MEDS: Albuterol/Ipratropium 3.0-0.5 MG/3 ML Neb Soln NEB PRN (16:36)
[2023-12-08] MEDS: Gabapentin 100 MG Cap PO SCH (21:32)
[2023-12-09 06:34] LABS: BASOPHILS ABSOLUTE AUTO 0.06 K/uL (0.00-0.20); BASOPHILS PERCENT AUTO 0.8 % (0.0-1.0); EOSINOPHILS PERCENT AUTO 1.4 % (0.0-6.0); HEMOGLOBIN 13.1 g/dL (14.0-18.0); IMMATURE GRAN ABSOLUTE AUTO 0.14 K/uL (0.00-0.05); LYMPHOCYTES ABSOLUTE AUTO 0.62 K/uL (1.00-4.80); LYMPHOCYTES PERCENT AUTO 8.7 % (24.0-44.0); MEAN CORPUSCULAR HEMOGLOBIN 26.8 pg (28.0-32.0); MONOCYTES ABSOLUTE AUTO 0.47 K/uL (0.00-0.80); MONOCYTES PERCENT AUTO 6.6 % (0.0-8.0); NEUTROPHILS ABSOLUTE AUTO 5.75 K/uL (1.80-7.70); NEUTROPHILS PERCENT AUTO 80.5 % (41.0-71.0); PLATELET COUNT,PLT 280 K/uL (150-400); RED BLOOD CELL COUNT 4.88 M/uL (4.52-5.90); WHITE BLOOD CELL COUNT,WBC 7.14 K/uL (3.9-11.3)
[2023-12-09 06:55] LABS: A/G RATIO 0.6 (0.9-1.6); ALBUMIN 2.9 g/dL (3.4-5.0); BILIRUBIN TOTAL 0.9 mg/dL (0.2-1.0); CARBON DIOXIDE,CO2 31.3 mmol/L (21.0-32.0); CREATININE 0.9 mg/dL (0.8-1.3); EST CRCL DRUG DOSING (CG) 80.19 mL/min; POTASSIUM,K 3.8 mmol/L (3.5-5.1); PROTEIN TOTAL,TP 7.7 g/dL (6.4-8.2)
[2023-12-09] MEDS: Gabapentin 100 MG Cap PO PRN (11:15)
[2023-12-10] MEDS: VANCOmycin 1.5 GM/300 ML 1.5 GM in Premix Bag 1 BAG IV SCH (00:21)
[2023-12-10 07:22] LABS: BASOPHILS ABSOLUTE AUTO 0.07 K/uL (0.00-0.20); EOSINOPHILS ABSOLUTE AUTO 0.14 K/uL (0.00-0.45); EOSINOPHILS PERCENT AUTO 1.9 % (0.0-6.0); HEMOGLOBIN 13.2 g/dL (14.0-18.0); IMMATURE GRAN ABSOLUTE AUTO 0.11 K/uL (0.00-0.05); IMMATURE GRAN PERCENT AUTO 1.5 % (0.0-0.4); LYMPHOCYTES ABSOLUTE AUTO 0.69 K/uL (1.00-4.80); LYMPHOCYTES PERCENT AUTO 9.5 % (24.0-44.0); MEAN CORPUSCULAR HEMOGLOBIN 26.5 pg (28.0-32.0); MEAN CORPUSCULAR HGB CONC 31.4 g/dL (32.0-36.0); MEAN CORPUSCULAR VOLUME 84.2 fL (83.0-99.0); MONOCYTES ABSOLUTE AUTO 0.62 K/uL (0.00-0.80); MONOCYTES PERCENT AUTO 8.5 % (0.0-8.0); NEUTROPHILS ABSOLUTE AUTO 5.64 K/uL (1.80-7.70); NEUTROPHILS PERCENT AUTO 77.6 % (41.0-71.0); PLATELET COUNT,PLT 296 K/uL (150-400); RED BLOOD CELL COUNT 4.99 M/uL (4.52-5.90); WHITE BLOOD CELL COUNT,WBC 7.27 K/uL (3.9-11.3)
[2023-12-10 07:57] LABS: A/G RATIO 0.6 (0.9-1.6); ALBUMIN 2.9 g/dL (3.4-5.0); BILIRUBIN TOTAL 0.9 mg/dL (0.2-1.0); CALCIUM 9.1 mg/dL (8.5-10.1); CARBON DIOXIDE,CO2 28.2 mmol/L (21.0-32.0); CREATININE 0.9 mg/dL (0.8-1.3); EST CRCL DRUG DOSING (CG) 80.19 mL/min; POTASSIUM,K 3.9 mmol/L (3.5-5.1); PROTEIN TOTAL,TP 7.9 g/dL (6.4-8.2)
[2023-12-10] MEDS: Fluconazole 150 MG Tab PO ONE (13:26)
[2023-12-11 06:08] LABS: BASOPHILS ABSOLUTE AUTO 0.07 K/uL (0.00-0.20); BASOPHILS PERCENT AUTO 0.9 % (0.0-1.0); EOSINOPHILS ABSOLUTE AUTO 0.12 K/uL (0.00-0.45); EOSINOPHILS PERCENT AUTO 1.5 % (0.0-6.0); HEMATOCRIT 39.6 % (42.0-52.0); HEMOGLOBIN 12.5 g/dL (14.0-18.0); IMMATURE GRAN ABSOLUTE AUTO 0.16 K/uL (0.00-0.05); LYMPHOCYTES ABSOLUTE AUTO 0.71 K/uL (1.00-4.80); LYMPHOCYTES PERCENT AUTO 8.9 % (24.0-44.0); MEAN CORPUSCULAR HEMOGLOBIN 26.4 pg (28.0-32.0); MEAN CORPUSCULAR HGB CONC 31.6 g/dL (32.0-36.0); MEAN CORPUSCULAR VOLUME 83.5 fL (83.0-99.0); MEAN PLATELET VOLUME 9.2 fL (9.4-12.4); MONOCYTES ABSOLUTE AUTO 0.51 K/uL (0.00-0.80); MONOCYTES PERCENT AUTO 6.4 % (0.0-8.0); NEUTROPHILS PERCENT AUTO 80.3 % (41.0-71.0); PLATELET COUNT,PLT 270 K/uL (150-400); RED BLOOD CELL COUNT 4.74 M/uL (4.52-5.90); WHITE BLOOD CELL COUNT,WBC 7.97 K/uL (3.9-11.3)
[2023-12-11 06:28] LABS: CALCIUM 9.1 mg/dL (8.5-10.1); CREATININE 0.9 mg/dL (0.8-1.3); EST CRCL DRUG DOSING (CG) 80.19 mL/min; POTASSIUM,K 3.8 mmol/L (3.5-5.1)
[2023-12-11] MEDS: Spironolactone 25 MG Tab PO SCH (10:10)
[2023-12-11] MEDS: Furosemide 40 MG/4 ML VIAL IVPUSH SCH (15:34)
[2023-12-12 05:34] LABS: BASOPHILS ABSOLUTE AUTO 0.07 K/uL (0.00-0.20); EOSINOPHILS ABSOLUTE AUTO 0.12 K/uL (0.00-0.45); EOSINOPHILS PERCENT AUTO 1.8 % (0.0-6.0); HEMATOCRIT 40.4 % (42.0-52.0); HEMOGLOBIN 12.9 g/dL (14.0-18.0); IMMATURE GRAN ABSOLUTE AUTO 0.15 K/uL (0.00-0.05); IMMATURE GRAN PERCENT AUTO 2.2 % (0.0-0.4); LYMPHOCYTES ABSOLUTE AUTO 0.52 K/uL (1.00-4.80); LYMPHOCYTES PERCENT AUTO 7.7 % (24.0-44.0); MEAN CORPUSCULAR HEMOGLOBIN 26.8 pg (28.0-32.0); MEAN CORPUSCULAR HGB CONC 31.9 g/dL (32.0-36.0); MEAN PLATELET VOLUME 9.6 fL (9.4-12.4); MONOCYTES ABSOLUTE AUTO 0.38 K/uL (0.00-0.80); MONOCYTES PERCENT AUTO 5.7 % (0.0-8.0); NEUTROPHILS ABSOLUTE AUTO 5.48 K/uL (1.80-7.70); NEUTROPHILS PERCENT AUTO 81.6 % (41.0-71.0); PLATELET COUNT,PLT 257 K/uL (150-400); RED BLOOD CELL COUNT 4.81 M/uL (4.52-5.90); WHITE BLOOD CELL COUNT,WBC 6.72 K/uL (3.9-11.3)
[2023-12-12 05:53] LABS: CARBON DIOXIDE,CO2 30.7 mmol/L (21.0-32.0); CREATININE 0.9 mg/dL (0.8-1.3); EST CRCL DRUG DOSING (CG) 80.19 mL/min; POTASSIUM,K 4.2 mmol/L (3.5-5.1)
[2023-12-12] MEDS: traMADol 50 MG Tab PO PRN (10:32)
[2023-12-12] MEDS: Iopamidol 755 MG/ML 500 ML Multipack Bottle IVPUSH STA (13:44)
[2023-12-13 05:25] LABS: BASOPHILS ABSOLUTE AUTO 0.05 K/uL (0.00-0.20); BASOPHILS PERCENT AUTO 0.7 % (0.0-1.0); EOSINOPHILS ABSOLUTE AUTO 0.12 K/uL (0.00-0.45); EOSINOPHILS PERCENT AUTO 1.7 % (0.0-6.0); HEMATOCRIT 39.6 % (42.0-52.0); HEMOGLOBIN 12.5 g/dL (14.0-18.0); IMMATURE GRAN ABSOLUTE AUTO 0.18 K/uL (0.00-0.05); IMMATURE GRAN PERCENT AUTO 2.5 % (0.0-0.4); LYMPHOCYTES PERCENT AUTO 8.4 % (24.0-44.0); MEAN CORPUSCULAR HEMOGLOBIN 26.4 pg (28.0-32.0); MEAN CORPUSCULAR HGB CONC 31.6 g/dL (32.0-36.0); MEAN CORPUSCULAR VOLUME 83.5 fL (83.0-99.0); MEAN PLATELET VOLUME 9.7 fL (9.4-12.4); MONOCYTES ABSOLUTE AUTO 0.55 K/uL (0.00-0.80); MONOCYTES PERCENT AUTO 7.7 % (0.0-8.0); NEUTROPHILS ABSOLUTE AUTO 5.61 K/uL (1.80-7.70); PLATELET COUNT,PLT 265 K/uL (150-400); RED BLOOD CELL COUNT 4.74 M/uL (4.52-5.90); WHITE BLOOD CELL COUNT,WBC 7.11 K/uL (3.9-11.3)
[2023-12-13 05:47] LABS: CALCIUM 9.2 mg/dL (8.5-10.1); CARBON DIOXIDE,CO2 32.9 mmol/L (21.0-32.0); CREATININE 0.9 mg/dL (0.8-1.3); EST CRCL DRUG DOSING (CG) 80.19 mL/min; POTASSIUM,K 4.5 mmol/L (3.5-5.1)
[2023-12-14 05:40] LABS: BASOPHILS ABSOLUTE AUTO 0.08 K/uL (0.00-0.20); EOSINOPHILS ABSOLUTE AUTO 0.15 K/uL (0.00-0.45); HEMATOCRIT 39.2 % (42.0-52.0); HEMOGLOBIN 12.3 g/dL (14.0-18.0); IMMATURE GRAN PERCENT AUTO 2.6 % (0.0-0.4); LYMPHOCYTES ABSOLUTE AUTO 0.66 K/uL (1.00-4.80); LYMPHOCYTES PERCENT AUTO 8.7 % (24.0-44.0); MEAN CORPUSCULAR HEMOGLOBIN 26.4 pg (28.0-32.0); MEAN CORPUSCULAR HGB CONC 31.4 g/dL (32.0-36.0); MEAN CORPUSCULAR VOLUME 84.1 fL (83.0-99.0); MEAN PLATELET VOLUME 9.8 fL (9.4-12.4); MONOCYTES ABSOLUTE AUTO 0.53 K/uL (0.00-0.80); MONOCYTES PERCENT AUTO 6.9 % (0.0-8.0); NEUTROPHILS ABSOLUTE AUTO 6.01 K/uL (1.80-7.70); NEUTROPHILS PERCENT AUTO 78.8 % (41.0-71.0); PLATELET COUNT,PLT 274 K/uL (150-400); RED BLOOD CELL COUNT 4.66 M/uL (4.52-5.90); WHITE BLOOD CELL COUNT,WBC 7.63 K/uL (3.9-11.3)
[2023-12-14 06:03] LABS: CALCIUM 9.2 mg/dL (8.5-10.1); CARBON DIOXIDE,CO2 30.1 mmol/L (21.0-32.0); CREATININE 0.9 mg/dL (0.8-1.3); EST CRCL DRUG DOSING (CG) 80.19 mL/min; POTASSIUM,K 4.7 mmol/L (3.5-5.1)
[2023-12-14] MEDS: Metolazone 5 MG Tab PO ONE (13:06)
[2023-12-15 05:25] LABS: BASOPHILS ABSOLUTE AUTO 0.07 K/uL (0.00-0.20); BASOPHILS PERCENT AUTO 0.9 % (0.0-1.0); EOSINOPHILS ABSOLUTE AUTO 0.17 K/uL (0.00-0.45); EOSINOPHILS PERCENT AUTO 2.1 % (0.0-6.0); HEMATOCRIT 40.3 % (42.0-52.0); HEMOGLOBIN 12.8 g/dL (14.0-18.0); IMMATURE GRAN ABSOLUTE AUTO 0.19 K/uL (0.00-0.05); IMMATURE GRAN PERCENT AUTO 2.4 % (0.0-0.4); LYMPHOCYTES ABSOLUTE AUTO 0.55 K/uL (1.00-4.80); LYMPHOCYTES PERCENT AUTO 6.8 % (24.0-44.0); MEAN CORPUSCULAR HEMOGLOBIN 26.5 pg (28.0-32.0); MEAN CORPUSCULAR HGB CONC 31.8 g/dL (32.0-36.0); MEAN CORPUSCULAR VOLUME 83.4 fL (83.0-99.0); MEAN PLATELET VOLUME 9.8 fL (9.4-12.4); MONOCYTES ABSOLUTE AUTO 0.52 K/uL (0.00-0.80); MONOCYTES PERCENT AUTO 6.5 % (0.0-8.0); NEUTROPHILS ABSOLUTE AUTO 6.54 K/uL (1.80-7.70); NEUTROPHILS PERCENT AUTO 81.3 % (41.0-71.0); PLATELET COUNT,PLT 234 K/uL (150-400); RED BLOOD CELL COUNT 4.83 M/uL (4.52-5.90); WHITE BLOOD CELL COUNT,WBC 8.04 K/uL (3.9-11.3)
[2023-12-15 05:45] LABS: CALCIUM 9.3 mg/dL (8.5-10.1); CARBON DIOXIDE,CO2 31.3 mmol/L (21.0-32.0); EST CRCL DRUG DOSING (CG) 72.17 mL/min; POTASSIUM,K 4.7 mmol/L (3.5-5.1)
[2023-12-15] MEDS: Metolazone 5 MG Tab PO ONE (22:15)
[2023-12-16 11:29] LABS: BASOPHILS ABSOLUTE AUTO 0.06 K/uL (0.00-0.20); BASOPHILS PERCENT AUTO 0.8 % (0.0-1.0); EOSINOPHILS ABSOLUTE AUTO 0.19 K/uL (0.00-0.45); EOSINOPHILS PERCENT AUTO 2.6 % (0.0-6.0); HEMATOCRIT 41.9 % (42.0-52.0); HEMOGLOBIN 13.2 g/dL (14.0-18.0); IMMATURE GRAN ABSOLUTE AUTO 0.18 K/uL (0.00-0.05); IMMATURE GRAN PERCENT AUTO 2.4 % (0.0-0.4); LYMPHOCYTES ABSOLUTE AUTO 0.48 K/uL (1.00-4.80); LYMPHOCYTES PERCENT AUTO 6.5 % (24.0-44.0); MEAN CORPUSCULAR HEMOGLOBIN 26.4 pg (28.0-32.0); MEAN CORPUSCULAR HGB CONC 31.5 g/dL (32.0-36.0); MEAN CORPUSCULAR VOLUME 83.8 fL (83.0-99.0); MEAN PLATELET VOLUME 9.8 fL (9.4-12.4); MONOCYTES ABSOLUTE AUTO 0.64 K/uL (0.00-0.80); MONOCYTES PERCENT AUTO 8.6 % (0.0-8.0); NEUTROPHILS ABSOLUTE AUTO 5.85 K/uL (1.80-7.70); NEUTROPHILS PERCENT AUTO 79.1 % (41.0-71.0); PLATELET COUNT,PLT 272 K/uL (150-400)
[2023-12-16 11:53] LABS: CALCIUM 9.6 mg/dL (8.5-10.1); CARBON DIOXIDE,CO2 34.7 mmol/L (21.0-32.0); EST CRCL DRUG DOSING (CG) 72.17 mL/min
[2023-12-16] MEDS: Polyethylene Glycol 3350 Powder 17 GM Packet PO PRN (18:24)
[2023-12-17 06:11] LABS: BASOPHILS ABSOLUTE AUTO 0.06 K/uL (0.00-0.20); BASOPHILS PERCENT AUTO 0.9 % (0.0-1.0); EOSINOPHILS ABSOLUTE AUTO 0.15 K/uL (0.00-0.45); EOSINOPHILS PERCENT AUTO 2.2 % (0.0-6.0); HEMATOCRIT 41.4 % (42.0-52.0); HEMOGLOBIN 13.1 g/dL (14.0-18.0); IMMATURE GRAN ABSOLUTE AUTO 0.14 K/uL (0.00-0.05); IMMATURE GRAN PERCENT AUTO 2.1 % (0.0-0.4); LYMPHOCYTES ABSOLUTE AUTO 0.45 K/uL (1.00-4.80); LYMPHOCYTES PERCENT AUTO 6.7 % (24.0-44.0); MEAN CORPUSCULAR HEMOGLOBIN 26.5 pg (28.0-32.0); MEAN CORPUSCULAR HGB CONC 31.6 g/dL (32.0-36.0); MEAN CORPUSCULAR VOLUME 83.6 fL (83.0-99.0); MEAN PLATELET VOLUME 9.8 fL (9.4-12.4); MONOCYTES ABSOLUTE AUTO 0.58 K/uL (0.00-0.80); MONOCYTES PERCENT AUTO 8.6 % (0.0-8.0); NEUTROPHILS ABSOLUTE AUTO 5.35 K/uL (1.80-7.70); NEUTROPHILS PERCENT AUTO 79.5 % (41.0-71.0); PLATELET COUNT,PLT 264 K/uL (150-400); RED BLOOD CELL COUNT 4.95 M/uL (4.52-5.90); WHITE BLOOD CELL COUNT,WBC 6.73 K/uL (3.9-11.3)
[2023-12-17 06:29] LABS: CALCIUM 9.4 mg/dL (8.5-10.1); CARBON DIOXIDE,CO2 34.3 mmol/L (21.0-32.0); CREATININE 1.1 mg/dL (0.8-1.3); EST CRCL DRUG DOSING (CG) 65.61 mL/min
[2023-12-17] MEDS: Sodium Chloride 1 GM Tab PO SCH (11:55)
[2023-12-18 06:08] LABS: CALCIUM 9.5 mg/dL (8.5-10.1); CARBON DIOXIDE,CO2 31.2 mmol/L (21.0-32.0); CREATININE 1.1 mg/dL (0.8-1.3); EST CRCL DRUG DOSING (CG) 64.44 mL/min; MAGNESIUM 2.2 mg/dL (1.8-2.4); POTASSIUM,K 4.4 mmol/L (3.5-5.1)
[2023-12-18] MEDS: Lisinopril 5 MG Tab PO SCH (11:58)
[2023-12-19 05:32] LABS: BASOPHILS ABSOLUTE AUTO 0.05 K/uL (0.00-0.20); BASOPHILS PERCENT AUTO 0.6 % (0.0-1.0); EOSINOPHILS ABSOLUTE AUTO 0.25 K/uL (0.00-0.45); EOSINOPHILS PERCENT AUTO 3.2 % (0.0-6.0); HEMATOCRIT 40.1 % (42.0-52.0); HEMOGLOBIN 13.3 g/dL (14.0-18.0); IMMATURE GRAN ABSOLUTE AUTO 0.16 K/uL (0.00-0.05); IMMATURE GRAN PERCENT AUTO 2.1 % (0.0-0.4); LYMPHOCYTES ABSOLUTE AUTO 0.79 K/uL (1.00-4.80); LYMPHOCYTES PERCENT AUTO 10.2 % (24.0-44.0); MEAN CORPUSCULAR HEMOGLOBIN 26.8 pg (28.0-32.0); MEAN CORPUSCULAR HGB CONC 33.2 g/dL (32.0-36.0); MEAN CORPUSCULAR VOLUME 80.8 fL (83.0-99.0); MEAN PLATELET VOLUME 10.3 fL (9.4-12.4); MONOCYTES ABSOLUTE AUTO 0.61 K/uL (0.00-0.80); MONOCYTES PERCENT AUTO 7.9 % (0.0-8.0); NEUTROPHILS ABSOLUTE AUTO 5.85 K/uL (1.80-7.70); PLATELET COUNT,PLT 249 K/uL (150-400); RED BLOOD CELL COUNT 4.96 M/uL (4.52-5.90); WHITE BLOOD CELL COUNT,WBC 7.71 K/uL (3.9-11.3)
[2023-12-19 05:53] LABS: CALCIUM 9.7 mg/dL (8.5-10.1); CARBON DIOXIDE,CO2 30.2 mmol/L (21.0-32.0); CREATININE 1.1 mg/dL (0.8-1.3); EST CRCL DRUG DOSING (CG) 64.44 mL/min; POTASSIUM,K 4.6 mmol/L (3.5-5.1)
[2023-12-19] MEDS ORDERED: BENADRYL CREAM TOP PRN (11:31)
[2023-12-19] MEDS: BENADRYL CREAM TOP PRN (12:13)
[2023-12-19] MEDS: Furosemide 100 MG/10 ML SDV IVPUSH ONE (14:29)
[2023-12-20] MEDS: Sodium Chloride 0.9% 500 ML IV SCH (00:56)
[2023-12-20 06:47] LABS: CARBON DIOXIDE,CO2 30.5 mmol/L (21.0-32.0); CREATININE 1.5 mg/dL (0.8-1.3); EST CRCL DRUG DOSING (CG) 47.26 mL/min; MAGNESIUM 2.4 mg/dL (1.8-2.4); POTASSIUM,K 4.6 mmol/L (3.5-5.1)
[2023-12-20 07:24] VITALS: PULSE 77
[2023-12-20] MEDS: Morphine 2 MG/ML SYRINGE IVPUSH ONE (09:55)
[2023-12-20] MEDS: DOPamine/Dextrose 5%-Water 400 MG/250 ML BAG IV SCH (10:27)
[2023-12-20] MEDS ORDERED: Lidocaine 2% 5 ML SDV ONE (10:45)
[2023-12-20 14:32] VITALS: BP 113/54
== END 2023-12-20 14:00 | DRG 383 ==
LOC: MW.ED 09:47 → MW.MS 15:35 → MW.ICU 12-20 09:44
PROVIDERS: ADMIT Internal Medicine; ATTEND Internal Medicine
PROC: 03HY32Z Insertion of Monitoring Device into Upper Artery, Percutaneous Approach (ICD-10-PCS; principal; 2023-12-20)
PROC: 4A133B1 Monitoring of Arterial Pressure, Peripheral, Percutaneous Approach (ICD-10-PCS; 2023-12-20)
PROC: 4A133J1 Monitoring of Arterial Pulse, Peripheral, Percutaneous Approach (ICD-10-PCS; 2023-12-20)
PROC: 02HV33Z Insertion of Infusion Device into Superior Vena Cava, Percutaneous Approach (ICD-10-PCS; 2023-12-20)
DX: L03.116 Cellulitis of left lower limb (principal); I50.23 Acute on chronic systolic (congestive) heart failure; I42.8 Other cardiomyopathies; I25.10 Atherosclerotic heart disease of native coronary artery without angina pectoris; I11.0 Hypertensive heart disease with heart failure; J44.9 Chronic obstructive pulmonary disease, unspecified; W19.XXXA Unspecified fall, initial encounter; E78.00 Pure hypercholesterolemia, unspecified; I95.9 Hypotension, unspecified; B37.9 Candidiasis, unspecified; E87.1 Hypo-osmolality and hyponatremia; L03.115 Cellulitis of right lower limb; R77.8 Other specified abnormalities of plasma proteins; E78.2 Mixed hyperlipidemia; Z91.148 Patient's other noncompliance with medication regimen for other reason; Z95.810 Presence of automatic (implantable) cardiac defibrillator; Z79.82 Long term (current) use of aspirin; Z79.899 Other long term (current) drug therapy; Z98.890 Other specified postprocedural states
CPT/HCPCS: 36415; 51702; 70450; 70450-26; 71046; 71046-26; 72125; 72125-26; 74176; 74176-26; 75635; 75635-26; 76705; 76705-26; 77001; 77001-26; 80048; 80053; 80202; 81003; 82140; 83605; 83690; 83735; 83880; 84100; 84295; 84484; 85025; 85610; 87040; 87070; 87077; 87186; 87205; 93010; 93306; 94640; 96361; 96365; 96366; 97110-GP; 97162-GP; 97530-GP; 99285; 99285-25; A9270-GY; J0696; J1265; J1644; J1940; J2270; J3370; J3490; J7030; J7040; J7050; J7620-GY; Q9967

== ENCOUNTER 2024-01-11 20:22 | Emergency (ER) | payer BC ==
[2024-01-11] MEDS ORDERED: Sodium Chloride 0.9% 2.5 ML Syringe FLUSH PRN (20:27)
[2024-01-11] MEDS ORDERED: Sodium Chloride 0.9% 10 ML Syringe FLUSH PRN (20:27)
[2024-01-11] MEDS: Sodium Chloride 0.9% 250 ML IV STA (20:51)
[2024-01-11] MEDS: Sodium Chloride 0.9% 1,000 ML IV STA (20:52)
[2024-01-11] MEDS: Ondansetron 4 MG/2 ML SDV IVPUSH ONE (20:54)
[2024-01-11 21:09] LABS: BASOPHILS ABSOLUTE AUTO 0.06 K/uL (0.00-0.20); BASOPHILS PERCENT AUTO 0.7 % (0.0-1.0); EOSINOPHILS ABSOLUTE AUTO 0.13 K/uL (0.00-0.45); EOSINOPHILS PERCENT AUTO 1.4 % (0.0-6.0); HEMATOCRIT 41.9 % (42.0-52.0); HEMOGLOBIN 14.4 g/dL (14.0-18.0); IMMATURE GRAN ABSOLUTE AUTO 0.11 K/uL (0.00-0.05); IMMATURE GRAN PERCENT AUTO 1.2 % (0.0-0.4); LYMPHOCYTES ABSOLUTE AUTO 0.66 K/uL (1.00-4.80); LYMPHOCYTES PERCENT AUTO 7.2 % (24.0-44.0); MEAN CORPUSCULAR HGB CONC 34.4 g/dL (32.0-36.0); MEAN CORPUSCULAR VOLUME 78.6 fL (83.0-99.0); MEAN PLATELET VOLUME 9.8 fL (9.4-12.4); MONOCYTES ABSOLUTE AUTO 0.62 K/uL (0.00-0.80); MONOCYTES PERCENT AUTO 6.8 % (0.0-8.0); NEUTROPHILS ABSOLUTE AUTO 7.57 K/uL (1.80-7.70); NEUTROPHILS PERCENT AUTO 82.7 % (41.0-71.0); PLATELET COUNT,PLT 212 K/uL (150-400); RED BLOOD CELL COUNT 5.33 M/uL (4.52-5.90); WHITE BLOOD CELL COUNT,WBC 9.15 K/uL (3.9-11.3)
[2024-01-11 21:33] LABS: A/G RATIO 0.8 (0.9-1.6); CALCIUM 10.3 mg/dL (8.5-10.1); CARBON DIOXIDE,CO2 32.3 mmol/L (21.0-32.0); CREATININE 1.7 mg/dL (0.8-1.3); EST CRCL DRUG DOSING (CG) 41.7 mL/min; POTASSIUM,K 3.2 mmol/L (3.5-5.1); PROTEIN TOTAL,TP 9.2 g/dL (6.4-8.2)
[2024-01-11 23:05] LABS: APPEARANCE,URINE CLEAR; BILIRUBIN,URINE NEGATIVE (NEGATIVE); COLOR,URINE YELLOW; GLUCOSE,URINE NEGATIVE (NEGATIVE); KETONES,URINE NEGATIVE (NEGATIVE); LEUKOCYTE ESTERASE,URINE NEGATIVE (NEGATIVE); NITRITE,URINE NEGATIVE (NEGATIVE); OCCULT BLOOD,URINE NEGATIVE (NEGATIVE); PROTEIN,URINE NEGATIVE (NEGATIVE); UROBILINOGEN,URINE 0.2 EU/dL (<2.0)
[2024-01-11 23:58] VITALS: BP 91/54; PULSE 70
== END 2024-01-11 23:57 | disposition home or self-care (01) ==
LOC: MW.ED 20:22
DX: R11.2 Nausea with vomiting, unspecified (principal); N17.9 Acute kidney failure, unspecified; E87.1 Hypo-osmolality and hyponatremia; R79.89 Other specified abnormal findings of blood chemistry; I11.0 Hypertensive heart disease with heart failure; I50.9 Heart failure, unspecified; E78.00 Pure hypercholesterolemia, unspecified; I25.10 Atherosclerotic heart disease of native coronary artery without angina pectoris; Z79.82 Long term (current) use of aspirin; Z79.899 Other long term (current) drug therapy; Z88.0 Allergy status to penicillin
CPT/HCPCS: 36415; 80053; 81003; 83690; 84484; 85025; 93005; 96374; 99284; J2405; J7050; 93010

== ENCOUNTER 2024-01-16 12:47 | Emergency (ER) | payer BC, MEDICAID ==
[2024-01-16] MEDS: Sodium Chloride 0.9% 2.5 ML Syringe FLUSH PRN (13:07)
[2024-01-16] MEDS: Sodium Chloride 0.9% 500 ML IV SCH (13:07)
[2024-01-16] MEDS: Sodium Chloride 0.9% 10 ML Syringe FLUSH PRN (13:07)
[2024-01-16 13:48] LABS: BASOPHILS ABSOLUTE AUTO 0.02 K/uL (0.00-0.20); BASOPHILS PERCENT AUTO 0.2 % (0.0-1.0); EOSINOPHILS ABSOLUTE AUTO 0.06 K/uL (0.00-0.45); EOSINOPHILS PERCENT AUTO 0.6 % (0.0-6.0); HEMATOCRIT 39.5 % (42.0-52.0); IMMATURE GRAN PERCENT AUTO 1.1 % (0.0-0.4); LYMPHOCYTES ABSOLUTE AUTO 0.52 K/uL (1.00-4.80); LYMPHOCYTES PERCENT AUTO 5.5 % (24.0-44.0); MEAN CORPUSCULAR HGB CONC 35.4 g/dL (32.0-36.0); MEAN CORPUSCULAR VOLUME 76.3 fL (83.0-99.0); MEAN PLATELET VOLUME 9.8 fL (9.4-12.4); MONOCYTES ABSOLUTE AUTO 0.58 K/uL (0.00-0.80); MONOCYTES PERCENT AUTO 6.1 % (0.0-8.0); NEUTROPHILS ABSOLUTE AUTO 8.24 K/uL (1.80-7.70); NEUTROPHILS PERCENT AUTO 86.5 % (41.0-71.0); PLATELET COUNT,PLT 197 K/uL (150-400); RED BLOOD CELL COUNT 5.18 M/uL (4.52-5.90); WHITE BLOOD CELL COUNT,WBC 9.52 K/uL (3.9-11.3)
[2024-01-16 13:58] LABS: A/G RATIO 0.9 (0.9-1.6); ALBUMIN 4.1 g/dL (3.4-5.0); BILIRUBIN TOTAL 1.4 mg/dL (0.2-1.0); CALCIUM 10.3 mg/dL (8.5-10.1); CARBON DIOXIDE,CO2 32.9 mmol/L (21.0-32.0); CREATININE 2.2 mg/dL (0.8-1.3); EST CRCL DRUG DOSING (CG) 32.22 mL/min; POTASSIUM,K 2.8 mmol/L (3.5-5.1); PROTEIN TOTAL,TP 8.7 g/dL (6.4-8.2)
[2024-01-16 14:08] LABS: CORONAVIRUS COVID-19 NAA NEGATIVE (NEGATIVE); INFLUENZA A NAA NEGATIVE (NEGATIVE); INFLUENZA B NAA NEGATIVE (NEGATIVE); RESPIRATORY SYNCYTIAL VIR NAA NEGATIVE (NEGATIVE)
[2024-01-16] MEDS: Potassium Chloride 20 MEQ Tab.ER PO ONE ×2 (14:30→15:36)
[2024-01-16 14:37] LABS: APPEARANCE,URINE CLEAR; BILIRUBIN,URINE NEGATIVE (NEGATIVE); COLOR,URINE YELLOW; GLUCOSE,URINE 100 mg/dL (NEGATIVE); KETONES,URINE NEGATIVE (NEGATIVE); LEUKOCYTE ESTERASE,URINE NEGATIVE (NEGATIVE); NITRITE,URINE NEGATIVE (NEGATIVE); OCCULT BLOOD,URINE NEGATIVE (NEGATIVE); PROTEIN,URINE NEGATIVE (NEGATIVE); UROBILINOGEN,URINE 0.2 EU/dL (<2.0)
[2024-01-16] MEDS: Potassium Chloride 10 MEQ in Premix Bag 1 BAG IV SCH (14:51)
[2024-01-16] MEDS ORDERED: Sodium Chloride 0.9% 100 ML IV SCH (15:00)
[2024-01-16] MEDS: Sodium Chloride 0.9% 100 ML IV SCH (15:05)
[2024-01-16 17:45] VITALS: BP 91/53; PULSE 71
== END 2024-01-16 18:26 ==
LOC: MW.ED 12:47
DX: I11.0 Hypertensive heart disease with heart failure (principal); I50.20 Unspecified systolic (congestive) heart failure; E87.1 Hypo-osmolality and hyponatremia; E87.6 Hypokalemia; E78.00 Pure hypercholesterolemia, unspecified; I25.10 Atherosclerotic heart disease of native coronary artery without angina pectoris; J44.89 Other specified chronic obstructive pulmonary disease; Z88.0 Allergy status to penicillin; Z79.51 Long term (current) use of inhaled steroids; Z79.82 Long term (current) use of aspirin; Z79.899 Other long term (current) drug therapy; Z75.8 Other problems related to medical facilities and other health care
CPT/HCPCS: 0241U; 36415; 80053; 81003; 83735; 84484; 85025; 93005; 96365; 96366; 99285; A9270; J3480; J3490; J7040; 93010; 99291